=== PATIENT | male | born 1970 | race Two or more races ===

== ENCOUNTER 2024-04-11 08:37 | Inpatient (IN) | payer MEDICAID, SELFPAY ==
[2024-04-11] VITALS (16 sets, daily range): BP systolic 99–114; BP diastolic 52–65; PULSE 86–108; RESP 12–97; TEMP 36.4–38.7; O2SAT 92–100; BMI 23.5
--- NOTE | 2024-04-11 11:00 | PC.NURSE ---
BIBA for abd pain. Patient states he has had abd pain for 3 nights. He points to the right upper quadrant. just states it hurts and pain is not going away.
--- NOTE | 2024-04-11 11:12 | XR_ITS ---
Examination: AP chest single view Technique one AP portable semiupright chest single view Exam date and time: May 11, 2024 1138 hours INDICATIONS: Sepsis protocol FINDINGS: Small focus of parenchymal disease in the right upper lobe Reduced inspiratory effort Normal heart size IMPRESSION: Suspicious for early right upper lobe pneumonia
--- NOTE | 2024-04-11 11:26 | XR_ITS ---
Examination: CT abdomen and pelvis without contrast. Coronal 3-D reconstructions. Sagittal 2-D reconstructions. Date and time of exam:April 11, 2024 1144 hours INDICATIONS: No bowel movement no urination 5 days CTDI: vol (mGy): 6.15 DLP: (mGycm): 391 Technique: Axial images of the abdomen have been obtained, 3 mm slice thickness Intravenous contrast material has not been administered. Low dose protocols were performed. One or more of the following dose reduction techniques were used; automated exposure control, adjustment of the mA and/or KV according to patient size, use of iterative reconstruction technique. Findings: Bibasilar pneumonia, significant right base Pericardial effusion measuring up to 13 mm Liver mildly irregular in contour Distended gallbladder with gallstones, gallbladder wall appears thickened Spleen not enlarged No pancreatic mass Atrophic kidneys with renal arterial calcification, no hydronephrosis Enlarged fluid-filled inflamed appendix medial and below the cecum axial images 165 through 139 Free fluid in the pelvis consistent with localized perforation and possible peritonitis No abscess Bladder intact IMPRESSION: Bibasilar pneumonia Primary hepatocellular disease Recommend hepatobiliary sonography to exclude acute calculus cholecystitis Acute appendicitis with localized rupture and probable peritonitis, no focal pelvic abscess
--- NOTE | 2024-04-11 11:51 | EDNOTE_ITS ---
ED Abdominal Pain RME/HPI General Chief Complaint: Abdominal Pain Stated complaint: ABDOMINAL PAIN Arrival date/time: 04/11/24 08:37 RME / HPI RME / HPI narrative: A 53-year-old male patient with past medical history of end-stage renal disease on dialysis M/W/F secondary to diabetic/hypertensive nephrosclerosis on dialysis Wednesday, diabetes, hypertension was [facility] due to abdominal pain for 5 days. Patient reported that abdominal pain started at the lower abdomen and became generalized and worsened over time. He reported that the pain 10 out of 10 associated with constipation and urinary retention. Patient denied any fever or chills and denied any nausea or vomiting. Last dialysis was yesterday and he reported that his pain did not improve after dialysis. Related Data Home Medications ?Medication ?Instructions ?Recorded ?Confirmed cyclobenzaprine 5 mg tablet 5 mg PO HS 07/25/22 01/07/23 hydroxyzine HCl 25 mg tablet 25 mg PO BID PRN Anxiety 07/25/22 01/07/23 ipratropium 20 mcg-albuterol 100 1 puff inhalation BID 07/25/22 01/07/23 mcg/actuation mist for inhalation (Combivent Respimat) lorazepam 1 mg tablet 1 mg PO HS 07/25/22 01/07/23 naproxen 500 mg tablet 500 mg PO TID 07/25/22 01/07/23 vitamin B comp no.3-folic acid 1 1 tab PO QDAY 07/25/22 01/07/23 mg-vit C 60 mg-biotin 300 mcg tablet ([facility]) carvedilol 6.25 mg tablet 6.25 mg PO BID 12/30/22 01/07/23 clonidine HCl 0.1 mg tablet 0.1 mg PO BID 12/30/22 01/07/23 furosemide 40 mg tablet 40 mg PO QAM 12/30/22 01/07/23 glycopyrrolate 1 mg tablet 1 mg PO BID 12/30/22 01/07/23 insulin glargine 100 unit/mL (3 15 unit subcut QPM 12/30/22 01/07/23 mL) subcutaneous pen (Lantus Solostar U-100 Insulin) losartan 25 mg tablet 25 mg PO QDAY 12/30/22 01/07/23 acetaminophen 325 mg tablet 325 mg PO Q8HR 01/07/23 01/07/23 (Tylenol) bisacodyl 10 mg rectal suppository 10 mg VT Q72H PRN Constipation 01/07/23 01/07/23 (Dulcolax (bisacodyl)) glucagon 1 mg injection kit See Rx Instructions .Route 01/07/23 01/07/23 .COMPLEX PRN Hypoglycemia magnesium hydroxide 400 mg/5 mL 30 ml PO Q72H PRN Constipation 01/07/23 01/07/23 oral suspension (Milk of Magnesia) sennosides 8.6 mg tablet (Senna 1 tab PO QPM 01/07/23 01/07/23 Lax) sodium phosphates 19 gram-7 118 ml VT Q72H PRN Constipation 01/07/23 01/07/23 gram/118 mL enema (Fleet Enema) Previous Rx's ?Medication ?Instructions ?Recorded calcium acetate(phosphat bind) 667 667 mg PO TIDWM #90 caps 08/20/21 mg capsule aspirin 81 mg tablet,delayed 81 mg PO DAILY #30 tabs 05/29/22 release atorvastatin 80 mg tablet 80 mg PO QPM #30 tabs 05/29/22 clopidogrel 75 mg tablet 75 mg PO QDAY #30 tabs 05/29/22 Allergies Allergy/AdvReac Type Severity Reaction Status Date / Time No Known Allergies Allergy Verified 01/07/23 09:25 Review of Systems Review of Systems Systems Reviewed: All systems reviewed, normal except as documented ED Exam Narrative Physical exam: GEN: AOx3, able to speak full sentences HEENT: NC/AC, oral mucosa moist, neck supple CVS: RRR, S1-S2 present, no murmurs appreciated RESP: CTAB GI: Rigid, nondistended flat, generalized tenderness, decreased bowel sounds. MSK: able to move all 4 limbs, no lower extremity edema SKIN: warm and dry PHILOSOPHY PROFESSOR: Mouth deviation to the right, and Sensation grossly intact. Course Quality Measures none Orders Category Date Time Status Bedside Blood Glucose NOW Care 04/11/24 11:12 Completed Associate Dean Q4H START 00 Care 04/11/24 11:12 Completed Continuous Pulse Oximetry NOW Care 04/11/24 11:12 Completed Insert IV NOW Care 04/11/24 11:12 Completed Strict Intake and Output Routine Care 04/11/24 11:12 Ordered Consult to General Surgery Stat Cons 04/11/24 14:09 Ordered Consult to Nephrology Stat Cons 04/11/24 14:[address] abdomen pelvis wo con Stat Exams 04/11/24 11:26 Completed XR chest 1V SEPSIS PROTOCOL Stat Exams 04/11/24 11:12 Completed Blood Culture (Lab) Stat Lab 04/11/24 12:07 Received CBC Stat Lab 04/11/24 12:07 Completed Comprehensive Metabolic Panel Stat Lab 04/11/24 12:07 Completed Lactate (Lactic Acid) Stat Lab 04/11/24 12:07 Completed Partial Thromboplastin Time Stat Lab 04/11/24 12:07 Completed Procalcitonin Stat Lab 04/11/24 12:07 Completed Prothrombin Time with INR Stat Lab 04/11/24 12:07 Completed Acetaminophen Ivpb [Ofirmev Inj] Med 04/11/24 11:25 Discontinued 1,000 mg in 100 ml IV Q6HR Bupivacaine Mpf 0.5% [Sensorcaine-Mpf Inj 0.5%] Med 04/11/24 14:35 Discontinued 30 ml .ROUTE .STK-MED ONE Piper/Tazo 3.375 gm [Zosyn] Med 04/11/24 12:03 Discontinued 3.375 gm in 50 ml IV X1 Sodium Chloride 0.9% 500 ml [Ns] 500 ml Med 04/11/24 11:26 Discontinued IV 999 mls/hr Sodium Chloride 0.9% 500 ml [Ns] 500 ml Med 04/11/24 12:16 Discontinued IV 999 mls/hr Vancomycin Pharmacy to Dose Med 04/11/24 12:00 Discontinued 1 each IV QDAY PRN Vancomycin/Ns 1 gm Ivpb 200 ml Med 04/11/24 12:15 Discontinued IV X1 EKG (RT) Stat RT 04/11/24 11:12 Stop Req Oxygen Delivery NOW RT 04/11/24 11:12 Completed Vital Signs Vital signs: Vital Signs Temperature 101.6 F H 04/11/24 08:42 Pulse Rate 108 H 04/11/24 08:42 Respiratory Rate 20 04/11/24 08:42 Blood Pressure 111/62 04/11/24 08:42 Pulse Oximetry (%) 95 04/11/24 08:42 Oxygen Delivery Method Room Air 04/11/24 08:42 Abdominal Pain MDM MDM Narrative MDM Narrative:: Resident approached me at 1150-hour about this patient who is got obvious peritonitis fever tachycardia and severe abdominal pain> patient has acute bacterial peritonitis till proven otherwise. Would not start antibiotics quickly see residents note for further details.>> CT came back with acute ap pendicitis peritonitis. Patient is admitted as noted below. On evaluation patient was found to have heart rate of 108, temperature of 101.6, on examination he was found to have abdominal rigidity and sluggish bowel sounds. were 11.5, CT scan was positive for acute appendicitis with localized rupture with possible peritonitis. We extracted Dr Starks due to sedation who decided to call the hospitalist team for admission for possible emergency surgery. Patient was started on 1 L of IV fluid boluses because he has a history of CHF and ESRD, patient was given Zosyn and vancomycin initially. We consulted the general surgeon Dr. Starks he recommended to admit the patient, Dr. Fifi Murguia his manager agency was consulted and saw and she recommended to admit the patient and to do dialysis tomorrow when the patient is more stable. Patient data External records reviewed:: [facility] previous records and Longterm records Clinical information provided by:: patient Social determinants that could affect healthcare access:: other (specify) Patient has the following chronic illnesses:: Hypertension, ESRD, diabetes mellitus How is presenting disease/condition affected by chronic disease/condition?: uneffected by Evaluation data The following diagnostics were reviewed and interpreted by me:: lab results, radiology exam(s) and EKG tracing(s) Lab and/or radiology exams considered but not ordered:: None Interpretation Summary: Ruptured appendicitis Medications / Prescriptions Medications or Prescriptions considered but not ordered:: None Medication administrations:: Medication Administration History Acetaminophen (Acetaminophen 325 Mg Tablet) 650 mg PO Q6H PRN PRN Reason: Fever >101.5 or pain 1-3 Stop: 05/11/24 15:23 Aspirin (Aspirin Ec 81 Mg Tabec) 81 mg PO QDAY OVI Stop: 05/12/24 08:59 Atorvastatin Calcium (Atorvastatin Calcium 20 Mg Tablet) 80 mg PO HS OVI Stop: 05/12/24 20:59 Calcium Acetate (Calcium Acetate 667 Mg Tablet) 667 mg PO TIDWM OVI Stop: 05/12/24 07:59 Dextrose (Dextrose 50%-Water Inj 50 Ml Syringe) 25 ml IV Q15MIN PRN PRN Reason: BG 50-70 responsive npo pt Stop: 05/11/24 15:47 Dextrose (Dextrose 50%-Water Inj 50 Ml Syringe) 50 ml IV Q15MIN PRN PRN Reason: BG <50 OR BG <70 & pt unresponsive Stop: 05/11/24 15:47 Docusate Sodium (Docusate Sod 100 Mg Capsule) 100 mg PO QDAY PRN; Protocol PRN Reason: CONSTIPATION Stop: 05/11/24 14:55 Glucagon (Glucagon Inj 1 Mg Vial) 1 mg IM Q15MIN PRN PRN Reason: BG <70, and no IV access Hydromorphone HCl (Hydromorphone Inj 2 Mg/Ml Vial) 1 mg IVP Q4HR PRN PRN Reason: Pain 7-10 Stop: 04/16/24 15:38 Piperacillin/Tazobactam/Dextrose (Zosyn) 50 mls @ 12.5 mls/hr IV Q12HR OVI Stop: 04/18/24 20:59 Acetaminophen (Ofirmev Inj) 1,000 mg in 100 mls @ 250 mls/hr IV Q6H [facility] Stop: 04/12/24 10:16 Insulin Human Lispro (Insulin Lispro (Admelog) 1 Unit/0.01 Ml Unit) 0 unit SC [facility]; Protocol Stop: 05/11/24 16:59 Last Admin: 04/11/24 17:00 Dose: Not Given Documented By: CLAYTON Non-Admin Reason: NPO Morphine Sulfate (Morphine Sulf Inj 10 Mg/Ml Vial) 2 mg IVP Q3H PRN PRN Reason: SEVERE BREAKTHRU PAIN Stop: 04/16/24 14:55 Ondansetron HCl (Ondansetron Inj 2 Mg/Ml Inj 2 Ml) 4 mg IV Q4HR PRN; Protocol PRN Reason: NAUSEA OR VOMITING Stop: 05/11/24 15:23 Pantoprazole Sodium (Pantoprazole Inj 40 Mg Vial) 40 mg IVP QDAY [facility] Stop: 05/11/24 19:59 Discontinued Medications Acetaminophen (Acetaminophen 325 Mg Tablet) 650 mg PO Q6H PRN PRN Reason: Fever >101.5 Stop: 05/11/24 15:23 Hydrocodone Bitart/Acetaminophen (Hydrocodone/Apap 5/325 Tablet) 1 tab PO Q4HR PRN PRN Reason: PAIN SCALE 4-6 (Moderate Stop: 04/16/24 14:55 Hydrocodone Bitart/Acetaminophen (Hydrocodone/Apap 5/325 Tablet) 1 tab PO Q4HR PRN PRN Reason: PAIN SCALE 4-6 (Moderate Stop: 04/16/24 14:55 Bupivacaine HCl (Bupivacaine Mpf 0.5% 30 Ml Vial) Confirm Administered Dose 30 ml .ROUTE .STK-MED ONE Stop: 04/11/24 14:36 Fentanyl Citrate (Fentanyl Cit Inj 50 Mcg/Ml Amp 2ml) Confirm Administered Dose 100 mcg .ROUTE .STK-MED ONE Stop: 04/11/24 14:53 Fentanyl Citrate (Fentanyl Cit Inj 50 Mcg/Ml Amp 2ml) 25 mcg IV Q5M PRN PRN Reason: PAIN SCALE 1-3 (mild Stop: 04/11/24 17:52 Last Admin: 04/11/24 16:59 Dose: 25 mcg Documented By: CLAYTON Gentamicin Sulfate (Gentamicin Inj 40 Mg/Ml Vial 2 Ml) Confirm Administered Dose 160 mg .ROUTE .STK-MED ONE Stop: 04/11/24 15:32 Heparin Sodium (Porcine) (Heparin Sod Inj 5000 Unit/Ml Vial) 5,000 unit SC Q8HR OVI Stop: 04/25/24 21:59 Acetaminophen (Ofirmev Inj) 1,000 mg in 100 mls @ 250 mls/hr IV Q6HR [facility] Stop: 04/12/24 06:23 Last Infusion: 04/11/24 12:48 Dose: Infused Documented By: Admin: 04/11/24 12:20 Dose: 250 mls/hr Documented By: Sodium Chloride (Ns) 500 mls @ 999 mls/hr IV .Q31M ONE Stop: 04/11/24 11:56 Last Infusion: 04/11/24 13:13 Dose: Infused Documented By: Admin: 04/11/24 12:22 Dose: 999 mls/hr Documented By: Vancomycin/Sodium Chloride (Vancomycin/Ns 1 Gm Ivpb) 200 mls @ 120 mls/hr IV X1 ONE Stop: 04/11/24 13:54 Last Admin: 04/11/24 12:59 Dose: 120 mls/hr Documented By: Piperacillin/Tazobactam/Dextrose (Zosyn) 3.375 gm in 50 mls @ 100 mls/hr IV X1 ONE Stop: 04/11/24 12:32 Last Infusion: 04/11/24 12:54 Dose: Infused Documented By: Admin: 04/11/24 12:21 Dose: 100 mls/hr Documented By: Sodium Chloride (Ns) 500 mls @ 999 mls/hr IV .Q31M ONE Stop: 04/11/24 12:46 Last Infusion: 04/11/24 13:53 Dose: Infused Documented By: Admin: 04/11/24 13:18 Dose: 999 mls/hr Documented By: Morphine Sulfate (Morphine Sulf Inj 10 Mg/Ml Vial) 2 mg IVP Q3H PRN PRN Reason: PAIN SCALE 7-10 (Severe Stop: 04/16/24 14:55 Morphine Sulfate (Morphine Sulf Inj 10 Mg/Ml Vial) 2 mg IVP Q4HR PRN PRN Reason: PAIN SCALE 7-10 (Severe Stop: 04/16/24 15:23 Morphine Sulfate (Morphine Sulf Inj 10 Mg/Ml Vial) 3 mg IV Q5M PRN PRN Reason: PAIN SCALE 4-6 (Moderate Stop: 04/11/24 17:52 Last Admin: 04/11/24 17:18 Dose: 3 mg Documented By: CLAYTON Ondansetron HCl (Ondansetron Inj 2 Mg/Ml Inj 2 Ml) 4 mg IV X1 ONE Stop: 04/11/24 15:53 Oxycodone/Acetaminophen (Oxycodone/Apap 5/325 Tablet) 1 tab PO Q6H PRN PRN Reason: PAIN SCALE 4-6 (Moderate Stop: 04/16/24 15:23 Oxycodone/Acetaminophen (Oxycodone/Apap 5/325 Tablet) 1 tab PO Q6H PRN PRN Reason: PAIN SCALE 4-6 (Moderate Stop: 04/16/24 15:23 Pharmacy Consult (Vancomycin Pharmacy To Dose 1 Each Each) 1 each IV QDAY PRN PRN Reason: CONSULT Stop: 05/11/24 11:59 Propofol (Propofol Inj 10 Mg/Ml Vial 20 Ml) Confirm Administered Dose 200 mg IV .STK-MED ONE Stop: 04/11/24 14:53 Sugammadex Sodium (Sugammadex Inj 100 Mg/Ml 2ml Vial) Confirm Administered Dose 200 mg .ROUTE .STK-MED ONE Stop: 04/11/24 15:32 As above Consultations Consultation(s) initiated? (list below): Yes Diagnosis Differential diagnosis abdominal pain: acute appendicitis (Acute appendicitis, ruptured with peritonitis), constipation and diverticulitis Most likely diagnosis given after review of the tests above:: Acute appendicitis, ruptured with peritonitis Admission Indicated Admission indicated?: indicated Admission Request Was there a request for admission?: Yes Admission Attestation Admission request attestation: Discussed case with [] from Hospitalist service regarding admission. Discussed patients ED course, exam findings, labs, and radiology results. The Hospitalist [agrees,declines] to accept the patient for admission. Disposition Plan Disposition Plan: Admit Discharge Plan Plan Patient Disposition: Admit Acute Care w/in Hospital Problem List Clinical Impression: Acute appendicitis, Diverticulitis MD Attestation MD Attestation I, Flo Stanton MD, have reviewed the history, exam, and assessment of the patient. I have evaluated the patient independently and agree with the plan of care documented by [ ]. All diagnostic studies were reviewed and discussed. I confirm the diagnosis as documented by the Resident. I was present during the Medical Decision Making for this patient. The patient's plan of care was create d between myself and the Resident and consistent with our discussion of the patient's case.
[2024-04-11 12:20] LABS: Lactate (Lactic Acid) 1.3 mMol/L (0.4-2.0)
[2024-04-11] MEDS: ACETAMINOPHEN IVPB 1,000 MG/100 ML VIAL 250 MG IV ×2 (12:20→19:31)
[2024-04-11] MEDS: PIPER/TAZO 3.375 GM 3.375 GM/50 ML BAG IV (12:21)
[2024-04-11 12:22] LABS: Basophils % (Auto) 0 % (0-2.5); Eosinophils % (Auto) 0 % (0-10); Hematocrit 31.1 % (41.0-53.0); Hemoglobin 10.1 g/dL (13.5-16.0); Immature Granulocytes % (Auto) 0 % (0-0); Immature Granulocytes Auto 0.05 Thou/mm3 (0.00-0.00); Lymphocytes # (Auto) 0.6 Thou/mm3 (1.0-4.8); Lymphocytes % (Auto) 5 % (10-50); Mean Corpuscular HGB Conc 32.5 g/dl (31.0-37.0); Mean Corpuscular Hemoglobin 31.8 pg (25.0-35.0); Mean Corpuscular Volume 98 fL (80-100); Monocytes # (Auto) 0.9 Thou/mm3 (0.0-0.8); Monocytes % (Auto) 8 % (0-12); Neutrophils # (Auto) 9.9 Thou/mm3 (1.8-7.7); Neutrophils % (Auto) 86 % (37-80); Nucleated Red Blood Cell % 0 /100 WBC (0); Platelet Count 319 Thou/mm3 (140-440); RDW Standard Deviation 49.1 fL (35.1-43.9); Red Blood Count 3.18 Miln/mm3 (4.50-5.90); White Blood Count 11.5 Thou/mm3 (3.8-10.6)
[2024-04-11] MEDS: SODIUM CHLORIDE 0.9% 500 ML 500 ML 999 ML IV ×2 (12:22→13:18)
[2024-04-11 12:35] LABS: INR 1.1 (0.9-1.3); Partial Thromboplastin Time 32.7 Seconds (22.0-36.0); Prothrombin Time 11.9 Seconds (9.0-12.2)
[2024-04-11 12:51] LABS: Alanine Aminotransferase 10 U/L (10-49); Albumin, Serum 4.1 gm/dL (3.5-5.0); Albumin/Globulin Ratio 1.4 (1.2-2.2); Alkaline Phosphatase 150 U/L (46-116); Anion Gap 10 (7-16); Aspartate Amino Transferase 12 U/L (0-34); BUN/Creatinine Ratio 9 Ratio (12-20); Bilirubin,Total 0.8 mg/dL (0.3-1.2); Blood Urea Nitrogen 60 mg/dL (9-23); Calcium 9.3 mg/dL (8.3-10.6); Calcium (Corrected) 9.3 mg/dL (8.5-10.1); Carbon Dioxide 30.3 mMol/L (20.0-31.0); Chloride 94 mMol/L (98-107); Creatinine (Component) 6.6 mg/dL (0.6-1.3); Estimated Creatinine Clearance 12.2 mL/min (>60); Globulin 2.9 gm/dL (2.3-3.5); Glucose 146 mg/dL (74-106); Osmolality,Calculated 288 (275-295); Potassium 4.6 mMol/L (3.4-5.1); Sodium 134 mMol/L (136-145); eGFR 9 See Note
[2024-04-11] MEDS: VANCOMYCIN/NS 1 GM IVPB 200 ML IV (12:59)
--- NOTE | 2024-04-11 14:37 | ESHP_ITS ---
<Statement entered by Brayden Rosas MD - 04/11/24 17:15> Senior Resident Attestation: I supervised/discussed management plan with resident Dr. Salgado, and was involved in the care of this patient. I personally saw and examined the patient and discussed the assessment and plan with the entire medicine team, including my attending. I agree with the assessment and plan as documented. Patient seen and examined in ED, 53 years old male with PMHx noted for ESRD, CVA with right hemiplegia, HTN, admitted for sepsis 2/2 perforated appendicitis, CT A/P also noted for distended GB with Cholelithiasis, patient was taken to OR for Ex-Laparascopy or possible open laparatomy, and possible Lap Cholecystectomy, patient started on Van and Zosyn in ED, will continue Zosyn and dc vancomycin, patient was given 2L NS bolus in ED, will not give more fluid at the moment in light of ESRD. Nephrology consulted, patient's next scheduled HD session for following day. Restarted patient's home Aspirin, Atorvastatin, and Calcium acetate, patient's HgbA1c a year ago noted to be 6.1, will hold patient's insulin as patient has no po intake and hold his antihypertensive meds as he is borderline hypertensive, will continue to monitor patient's condition, and re- evaluate in AM. Patient's care was discussed with attending physician, Dr. Joshua Rosas MD PGY-3 Documentation for date of: 04/11/24 HPI History of Present Illness Chief complaint: Abdominal pain History of present illness: A 53-year-old male patient with past medical history of diabetes mellitus, hypertension, diabetic/hypertensive nephrosclerosis, end-stage renal disease on dialysis M/W/F, and and CVA (acute infarcts left basal ganglia and acute infarct left caudate nucleus on 04/2022) w/right sided residual deficits presented to the ED of [facility] from residential facility for chief complaint of abdominal pain x 3 days. Patient endorses that the pain was diffuse and generalized throughout his abdomen. He rated it as an 8 out of 10 in severity diffuse pain. The pain was not associated with food. Patient endorses that he did not any eat anything out of the ordinary. He also endorses that he has not had any urine for the past 3 days and he has not produced stool over the past 5 days. Patient denies headache, fever, chills, chest pain, palpitation, shortness of breath, dizziness, nausea, vomiting, or diarrhea. Patient was admitted for management of sepsis secondary to ruptured acute appendicitis. ED course: Blood pressure 111/62, heart rate 108, respiratory rate 20, temperature 101.6 F, 95% room air. Sodium: 134, potassium 4.6, chloride 94, bicarb 30.3, BUN 60, creatinine 6.6, GFR 9, glucose 146. Lactic acid 1.3, LDH 150. Procalcitonin 21.80 CBC: WBC 11.5, hemoglobin 10.1, hematocrit 31.1%, platelet count 319. CT ab/pelvis: Bibasilar pneumonia, primary hepatocellular disease. Recommend hepatobiliary sonography to exclude acute calculus cholecystitis. Acute appendicitis with localized rupture and probable peritonitis, no focal pelvic abscess. Chest x-ray: Suspicious for right upper lobe pneumonia. Past medical history: As above Allergies: None Medications: Pending med rec Family history: Mother -diabetes, Father: None Surgical history: None Social history: Beer drinker for a total of 4 years-stopped drinking 2 years ago when he had a stroke. Denies any tobacco or illicit drug use. Review of Systems Review of Systems Systems Reviewed: All systems reviewed, normal except as documented Past Medical History Past Medical History NEUROLOGIC: Positive Cerebrovascular Accident; Negative Migraine CARDIAC: Positive Cardiac Disorders, Hypercholesterolemia, Congestive Heart Failure and Hypertension; Negative Myocardial Infarction RESPIRATORY: Negative Chronic Obstructive Pulmonary Disease (COPD), Asthma or Pneumonia GASTROINTESTINAL: Negative Cirrhosis, Gall Bladder Disease, Hiatal Hernia or Gastroesophageal Reflux Disease GENITOURINARY: Positive Chronic Kidney Disease, Renal Disease and Dialysis; Negative Kidney Stones MUSCULOSKELETAL: Negative Arthritis ENT: 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); Negative Glaucoma or Deafness ENDOCRINE: Positive Endocrine Disorders and Diabetes Mellitus Type 2; Negative Diabetes Mellitus Type 1, Hypoglycemia or Hyperthyroidism HEMATOLOGIC: Negative Blood Disorders, Anemia or Sickle Cell Disease OTHER HISTORY: Negative Falls, Clostridium Difficile or Cancer Family History FAMILY HISTORY: Negative Family Psychiatric Problems, Family Cardiac Disorders, Family Gastrointestinal Problems, Family Musculoskeletal Disorders or Family Cancer Surgical History OTHER SURGICAL HX: RUE AVG Social History SMOKING STATUS: Never smoker Exam Vital Signs Temp Pulse Resp BP Pulse Ox O2 Del Method 100.3 F 105 H 15 107/65 94 L Room Air 04/11/24 12:28 04/11/24 12:28 04/11/24 12:28 04/11/24 12:28 04/11/24 12:28 04/11/24 12:28 Narrative Exam Constitutional: Yakut-speaking, bed bound, middle-age male. well-nourished, in no acute distress, slurred speech. HEENT: NCAT, EOMI, reactive round pupils b/l, moist mucous membranes, on room air Lung: CTAB, no wheezing, no rhonchi, no crackles. Heart: Regular S1S2, no murmurs, gallops, or rubs Abdomen: Soft, non-distended,tender, ++bowel sounds present throughout. Extremities: No cyanosis, clubbing, no edema of b/l legs, residual paralysis of right upper and lower extremities. Left upper and lower extermities strength 5/5. Neurologic: Motor deficits noted, AOx3, appropriate affect Skin: Warm, dry, no lesions or rashes noted Results: Labs 04/15/24 05:10 04/15/24 05:10 Labs: Short CBC 04/11/24 Range/Units 12:07 WBC 11.5 H (3.8-10.6) Thou/mm3 Hgb 10.1 L (13.5-16.0) g/dL Hct 31.1 L (41.0-53.0) % Plt Count 319 (140-440) Thou/mm3 BMP 04/11/24 12:07 Sodium 134 L Potassium 4.6 Chloride 94 L Carbon Dioxide 30.3 BUN 60 H Creatinine 6.6 H* Glucose 146 H Calcium 9.3 Liver Function 04/11/24 Range/Units 12:07 Total Bilirubin 0.8 (0.3-1.2) mg/dL AST 12 (0-34) U/L ALT 10 (10-49) U/L Alkaline Phosphatase 150 H (46-116) U/L Albumin 4.1 (3.5-5.0) gm/dL Quality Measures Quality Measures none Medications Home Medications and Allergies Home Medications ?Medication ?Instructions ?Recorded ?Confirmed ?Type cyclobenzaprine 5 mg tablet 5 mg PO HS 07/25/22 04/12/24 History ipratropium 20 mcg-albuterol 100 1 puff inhalation BID 07/25/22 04/12/24 History mcg/actuation mist for inhalation (Combivent Respimat) lorazepam 1 mg tablet 1 mg PO HS 07/25/22 04/11/24 History carvedilol 6.25 mg tablet 6.25 mg PO BID 12/30/22 04/12/24 History clonidine HCl 0.1 mg tablet 0.1 mg PO BID 12/30/22 04/12/24 History furosemide 40 mg tablet 40 mg PO QAM 12/30/22 04/12/24 History glycopyrrolate 1 mg tablet 1 mg PO BID 12/30/22 04/12/24 History insulin glargine 100 unit/mL (3 15 unit subcut QPM 12/30/22 04/12/24 History mL) subcutaneous pen (Lantus Solostar U-100 Insulin) losartan 25 mg tablet 25 mg PO QDAY 12/30/22 04/12/24 History acetaminophen 325 mg tablet 650 mg PO Q8HR PRN Pain, Mild 01/07/23 04/12/24 History (Tylenol) bisacodyl 10 mg rectal suppository 10 mg [place] Q72H PRN Constipation 01/07/23 04/12/24 History (Dulcolax (bisacodyl)) sennosides 8.6 mg tablet (Senna 1 tab PO QPM 01/07/23 04/12/24 History Lax) sodium phosphates 19 gram-7 118 ml [place] Q72H PRN Constipation 01/07/23 04/12/24 History gram/118 mL enema (Fleet Enema) glucagon 1 mg injection kit 1 mg subcut Q15MIN PRN Hypoglycemia 04/11/24 04/11/24 History lactulose 20 gram/30 mL oral 20 g PO QPM 04/11/24 04/11/24 History solution nutritional supplements 1 ea PO BID 04/11/24 04/11/24 History aspirin 81 mg chewable tablet 81 mg PO QDAY 04/12/24 04/12/24 History atorvastatin 80 mg tablet 80 mg PO HS 04/12/24 04/12/24 History cholecalciferol (vitamin D3) 125 125 mcg PO QDAY 04/12/24 04/12/24 History mcg (5,000 unit) tablet clopidogrel 75 mg tablet 75 mg PO DAILY 04/12/24 04/12/24 History docusate sodium 50 mg capsule 250 mg PO BID 04/12/24 04/12/24 History fluticasone propionate 50 2 spray intranasal QDAY 04/12/24 04/12/24 History mcg/actuation nasal spray,suspension (Flonase Allergy Relief) guaifenesin 100 mg/5 mL oral liquid 200 mg PO [id number] PRN Cough 04/12/24 04/12/24 History insulin lispro 100 unit/mL 4 unit subcut [id number] 04/12/24 04/12/24 History subcutaneous solution (Humalog U-100 Insulin) insulin regular human 100 unit/mL 1 sliding scale dose subcut 04/12/24 04/12/24 History (3 mL) subcutaneous pen USEASDIRECTD magnesium hydroxide 400 mg/5 mL 30 ml PO Q72H PRN Constipation 04/12/24 04/12/24 History oral suspension (Milk of Magnesia) pantoprazole 40 mg tablet,delayed 40 mg PO QAM 04/12/24 04/12/24 History release vitamin B complex-vitamin C-folic 1 tab PO QDAY 04/12/24 04/12/24 History acid 0.8 mg tablet (Clementina-Sofiya) Allergies Allergy/AdvReac Type Severity Reaction Status Date / Time No Known Allergies Allergy Verified 04/11/24 22:46 Visit Medications Pharmacy Consult (Vancomycin Pharmacy To Dose 1 Each Each) 1 each IV QDAY PRN PRN Reason: CONSULT Stop: 05/11/24 11:59 Discontinued Medications Acetaminophen (Ofirmev Inj) 1,000 mg in 100 mls @ 250 mls/hr IV Q6HR OVI Stop: 04/12/24 06:23 Last Infusion: 04/11/24 12:48 Dose: Infused Sodium Chloride (Ns) 500 mls @ 999 mls/hr IV .Q31M ONE Stop: 04/11/24 11:56 Last Infusion: 04/11/24 13:13 Dose: Infused Vancomycin/Sodium Chloride (Vancomycin/Ns 1 Gm Ivpb) 200 mls @ 120 mls/hr IV X1 ONE Stop: 04/11/24 13:54 Last Admin: 04/11/24 12:59 Dose: 120 mls/hr Piperacillin/Tazobactam/Dextrose (Zosyn) 3.375 gm in 50 mls @ 100 mls/hr IV X1 ONE Stop: 04/11/24 12:32 Last Infusion: 04/11/24 12:54 Dose: Infused Sodium Chloride (Ns) 500 mls @ 999 mls/hr IV .Q31M ONE Stop: 04/11/24 12:46 Last Infusion: 04/11/24 13:53 Dose: Infused Assessment & Plan Plan A 53-year-old male patient with past medical history of diabetes mellitus, hypertension, diabetic/hypertensive nephrosclerosis, end-stage renal disease on dialysis M/W/F, and CVA (acute infarcts left basal ganglia and acute infarct left caudate nucleus on 04/2022) w/right sided residual deficits presented to the ED of [facility] from residential facility for chief complaint of abdominal pain x 3 days. Patient was tachypneic, tachycardic, with elevated WBC on ED presentation. Found to have ruptured acute appendicitis on CT abdomen and pelvis. Patient was admitted for management of sepsis secondary to ruptured acute appendicitis. #Sepsis Secondary to #Ruptured acute appendicitis Ddx: Cholecystitis vs peritonitis Patient presenting the ED with generalized, severe abdominal pain x 3 nights. Patient met 3 out of 4 SIRS criteria for sepsis: tachycardia, tachypnea and elevated WBCs. He is found to have ruptured appendicitis (source) on CT a/p. Possible underlying acute calculus cholecystitis with positive Merino sign on physical examination noted. Likely underlying peritonitis as he has not been able to have a bowel movement in the past 5 days, tenderness/abdominal pain that worsens with movement, and decreased appetite. Blood pressure 111/62, heart rate 108, respiratory rate 20, temperature 101.6 F. Lactic acid 1.3, LDH 150. Procalcitonin 21.80 CBC: WBC 11.5, hemoglobin 10.1, hematocrit 31.1%, platelet count 319. CT ab/pelvis: Bibasilar pneumonia, primary hepatocellular disease. Recommend hepatobiliary sonography to exclude acute calculus cholecystitis. Acute appendicitis with localized rupture and probable peritonitis, no focal pelvic abscess. He was given 2 L IV fluid per sepsis protocol in the ED, Zozyn and vancomycin. Plan: -Consulted Dr. Starks; surgical invention on 04/11/24 -NPO -IV Zosyn 3.375 (04/11- -IV Zofran every 4 hours as needed for Nausea/vomitting -IV Dilaudid every 4 hours as needed -[place] 5/325 orally every 6 hours as needed #Healthcare acquired pneumonia Questionable healthcare acquired pneumonia as patient denies fever, chills, shortness of breath, cough or mucus production. No immediate sick contacts or recent travel. Imaging reveals pneumonia in the right upper lobe. CT ab/pelvis: Bibasilar pneumonia. Chest x-ray: Suspicious for right upper lobe pneumonia. -Antibiotics for appendicitis provides coverage for pneumonia #End-stage renal disease on dialysis M/W/F Patient developing ESRD secondary to diabetic nephrosclerosis. Patient's last dialysis session was 04/10/2024. BUN 60, creatinine 6.6, GFR 9. -Consulted nephrology; appreciate recommendations -renal panel in am -Avoid nephrotoxic agents -Renally dose medications #Diabetes mellitus Patient has a history of diabetes mellitus. -Sliding scale insulin -Bedside glucose checks -Hypoglycemic protocol #Hypertension #Hypertensive nephrosclerosis Patient has a history of hypertension. Patient's blood pressure remains soft in setting of sepsis. -Hold antihypertensives at this moment -Pending med rec; will resume home meds upon improvement in BP. #CVA (2021) Acute infarcts of left basal ganglia and acute infarct left caudate nucleus on 04/2022. Patient has residual paralysis of right upper and lower extremities. Slurred speech noted. -Will restart home aspirin, clopidogrel and atorvastatin Discussed case with my attending Dr. Lewis and senior Brayden Rosas, PGY-3. Thank you, Nisreen Salgado, PGY-2 Attending Provider Attestation/Addendum Face to face evaluation was performed by me. I have personally seen and examined the patient. I discussed the assessment and plan with the entire medicine team. I reviewed available medical records, imaging studies, laboratory results. I agree with the above subjective data, objective findings, assessment and plan except as corrected by me or noted below Ruptured appendix ESRD on HD - gen surgery consulted, looks like no plans for or empiric IV Abxs monitor clinical status closely
--- NOTE | 2024-04-11 14:43 | ESCONSULT_ITS ---
HPI Consult details Consult date: 04/11/24 Reason for consult: abdominal pain History of present illness: 53 yo male with history of DM, HTN, CVA, ESRD on hemodialysis presented to emergency department with worsening abdominal pain. He started developing abdominal pain 5 days ago that has been getting progressively worse over the past 2 days. He has had nausea and vomiting, denies fever or chills. He denies having similar symptoms in the past. Review of Systems Constitutional Constitutional: Denies chills and Denies fever(s) Cardiovascular Cardiovascular: Denies chest pain Respiratory Respiratory: Denies cough Gastrointestinal Gastrointestinal: Reports abdominal pain, Reports nausea and Reports vomiting Genitourinary Genitourinary: Denies difficulty urinating Hematologic/Lymphatic Hematologic/Lymphatic: Denies easy bleeding and Reports easy bruising Past Medical History Surgical History OTHER SURGICAL HX: RUE AVG Meds Home Medications and Allergies Home Medications ?Medication ?Instructions ?Recorded ?Confirmed ?Type cyclobenzaprine 5 mg tablet 5 mg PO HS 07/25/22 01/07/23 History hydroxyzine HCl 25 mg tablet 25 mg PO BID PRN Anxiety 07/25/22 01/07/23 History ipratropium 20 mcg-albuterol 100 1 puff inhalation BID 07/25/22 01/07/23 History mcg/actuation mist for inhalation (Combivent Respimat) lorazepam 1 mg tablet 1 mg PO HS 07/25/22 01/07/23 History naproxen 500 mg tablet 500 mg PO TID 07/25/22 01/07/23 History vitamin B comp no.3-folic acid 1 1 tab PO QDAY 07/25/22 01/07/23 History mg-vit C 60 mg-biotin 300 mcg tablet (Clementina-Sofiya Rx) carvedilol 6.25 mg tablet 6.25 mg PO BID 12/30/22 01/07/23 History clonidine HCl 0.1 mg tablet 0.1 mg PO BID 12/30/22 01/07/23 History furosemide 40 mg tablet 40 mg PO QAM 12/30/22 01/07/23 History glycopyrrolate 1 mg tablet 1 mg PO BID 12/30/22 01/07/23 History insulin glargine 100 unit/mL (3 15 unit subcut QPM 12/30/22 01/07/23 History mL) subcutaneous pen (Lantus Solostar U-100 Insulin) losartan 25 mg tablet 25 mg PO QDAY 12/30/22 01/07/23 History acetaminophen 325 mg tablet 325 mg PO Q8HR 01/07/23 01/07/23 History (Tylenol) bisacodyl 10 mg rectal suppository 10 mg [place] Q72H PRN Constipation 01/07/23 01/07/23 History (Dulcolax (bisacodyl)) glucagon 1 mg injection kit See Rx Instructions .Route 01/07/23 01/07/23 History .COMPLEX PRN Hypoglycemia magnesium hydroxide 400 mg/5 mL 30 ml PO Q72H PRN Constipation 01/07/23 01/07/23 History oral suspension (Milk of Magnesia) sennosides 8.6 mg tablet (Senna 1 tab PO QPM 01/07/23 01/07/23 History Lax) sodium phosphates 19 gram-7 118 ml [place] Q72H PRN Constipation 01/07/23 01/07/23 History gram/118 mL enema (Fleet Enema) Allergies Allergy/AdvReac Type Severity Reaction Status Date / Time No Known Allergies Allergy Verified 01/07/23 09:25 Exam Vital Signs Temp Pulse Resp BP Pulse Ox O2 Del Method 100.3 F 105 H 15 107/65 94 L Room Air 04/11/24 12:28 04/11/24 12:28 04/11/24 12:28 04/11/24 12:28 04/11/24 12:28 04/11/24 12:28 Constitutional Constitutional: no acute distress Routine Abdominal Exam Abdominal: Present soft, normoactive bowel sounds and tenderness (Tenderness to palpation throughout the abdomen with guarding. Pain is more pronounced over RLQ with guarding); Absent distended Results Results: Laboratory Laboratory results: results reviewed Results: Imaging CT scan - abdomen: report reviewed and image reviewed CT scan - pelvis: report reviewed and image reviewed Assessment & Plan Problem List (1) Acute appendicitis with perforation and generalized peritonitis, without abscess or gangrene: Status: Acute Plan Will take pt to operating room for laparoscopic possible open appendectomy. Risks include but not limited to infection, bleeding, injury to bowel, surround neurovascular structures, abdominal sepsis and or abdominal abscess, need for further procedure and or operation discussed with the patient via wide piece goods inspector. Benefits alternatives explained to him, all his questions answered, he agreed and consented to proceed with the operation.
--- NOTE | 2024-04-11 14:50 | PC.NURSE ---
Report given to OR staff. Pt will be transported to OR.
--- NOTE | 2024-04-11 16:22 | PD.SUROPNT ---
Date of Procedure 04/11/24 Pre Op Diagnosis Perforated appendicitis Post Op Diagnosis Perforated appendicitis with generalized peritonitis Procedure Laparoscopic appendectomy with abdominal washout Findings Perforated and inflamed appendix with purulent peritonitis throughout the abdomen Procedure Description Patient was brought into the operating room in supine position. After administration of general endotracheal anesthesia, abdomen was prepped and draped in standard surgical manner. A Veress needle was inserted through the umbilicus and pneumoperitoneum was obtained up to 15 mmHg. The Veress needle was removed and a 5 mm umbilical incision was made. A 5 mm trocar was placed and laparoscopic camera was inserted. Under direct visualization a laparoscopic camera a 5 mm trocar placed in suprapubic region and a 10 mm trocar placed in left lower quadrant. The abdomen was inspected, patient was noted to have purulent peritonitis throughout the abdomen. The abdomen and pelvis washed and irrigated with copious amount of warm saline mixed with gentamicin. The cecum was identified and followed until the appendix was identified. The appendix was noted to be inflamed with a perforation at the proximal aspect. A window was created between the appendix and mesoappendix and the appendix was divided near the appendix and cecal junction with blue Endo FREDY stapling device. The mesoappendix was divided with pompa Endo FREDY stapling device. The appendix was placed inside an Endo Catch and removed from the abdomen utilizing left lower quadrant trocar site. Abdomen and pelvis copiously and thoroughly washed and irrigated, all the fluids were suctioned and the suctioned fluid returned clear. Hemostasis was adequate and satisfactory, staple lines were intact without bleeding or any leakage. Left lower quadrant trocar sites fascial defect was closed with 0 Vicryl. Instruments and trocars removed, pneumoperitoneum was evacuated and the incisions closed with 4-0 Monocryl subcuticular fashion. Instruments, needles and sponge counts were reported to be correct ??2. Patient tolerated the procedure well, was extubated, breathing spontaneously and without difficulty and was transferred to postanesthesia care in stable condition. Anesthesia GETA and local Pathology / specimen Other (Appendix) Estimated Blood Loss 25 Condition Stable Disposition PACU Surgeon Karlo Starks MD Surgical Staff Operation Date: 04/11/24 14:45 Case Staff Anesthesiologist: Cameron Lynch RN First Assistant: Africa Smith
--- NOTE | 2024-04-11 16:31 | SUR.PHASEI ---
pt received from OR in recovery bay 5. pt asleep but responds to voice, breathing unlabored on oxymask 8l. v/s stable. pt dressing dermabond x3 ports cdi. report received from Dr. Winters and Lucila HOLLIDAY.
[2024-04-11] MEDS: fentaNYL CIT INJ 50 mCg/ML AMP 2ML 25 MCG IV (16:59)
[2024-04-11 17:12] LABS: Glucose Estimated Average 117 mg/dL (80-131); Hemoglobin A1C 5.7 % Hgb (4.8-6.0)
[2024-04-11] MEDS: MORPHINE SULF INJ 10 MG/ML VIAL 3 MG IV (17:18)
[2024-04-11 17:53] LABS: COVID-19 Antigen (In-House) Negative (Negative)
--- NOTE | 2024-04-11 18:17 | SUR.PHASEI ---
pt asleep but responds to voice, breathing unlabored on room air. v/s stable. pt dressing to abd dermabond x3 cdi. report called to Sandra HOLLIDAY. pt will be transferred to room at this time.
--- NOTE | 2024-04-11 18:27 | PC.NURSE ---
pt arrived to mi floor
[2024-04-11] MEDS: PANTOPRAZOLE INJ 40 MG VIAL IVP (19:32)
[2024-04-11] MEDS: PIPER/TAZO 3.375 GM 50 ML IV (21:44)
[2024-04-11] MEDS: HYDROmorphone INJ 2 MG/ML VIAL 1 MG IVP (22:22)
[2024-04-12] VITALS (25 sets, daily range): BP systolic 93–139; BP diastolic 50–72; PULSE 73–98; RESP 16–96; TEMP 36.1–36.8; O2SAT 91–99
[2024-04-12] MEDS: ACETAMINOPHEN IVPB 1,000 MG/100 ML VIAL 250 MG IV ×3 (02:20→12:46)
--- NOTE | 2024-04-12 03:30 | PC.NURSE ---
[employer] downtime occurred on <04/12/24> from <0200> to <0300>.
[2024-04-12 05:49] LABS: Basophils % (Auto) 0 % (0-2.5); Eosinophils % (Auto) 0 % (0-10); Hematocrit 26.7 % (41.0-53.0); Immature Granulocytes % (Auto) 1 % (0-0); Immature Granulocytes Auto 0.07 Thou/mm3 (0.00-0.00); Lymphocytes # (Auto) 0.8 Thou/mm3 (1.0-4.8); Lymphocytes % (Auto) 6 % (10-50); Mean Corpuscular HGB Conc 31.5 g/dl (31.0-37.0); Mean Corpuscular Hemoglobin 31.6 pg (25.0-35.0); Mean Corpuscular Volume 100 fL (80-100); Monocytes # (Auto) 1.2 Thou/mm3 (0.0-0.8); Monocytes % (Auto) 8 % (0-12); Neutrophils # (Auto) 12.1 Thou/mm3 (1.8-7.7); Neutrophils % (Auto) 86 % (37-80); Nucleated Red Blood Cell % 0 /100 WBC (0); Platelet Count 302 Thou/mm3 (140-440); RDW Standard Deviation 51.4 fL (35.1-43.9); Red Blood Count 2.66 Miln/mm3 (4.50-5.90); White Blood Count 14.2 Thou/mm3 (3.8-10.6)
[2024-04-12 05:51] LABS: Hemoglobin 8.4 g/dL (13.5-16.0)
[2024-04-12 06:10] LABS: Glucose Estimated Average 114 mg/dL (80-131); Hemoglobin A1C 5.6 % Hgb (4.8-6.0)
[2024-04-12 06:19] LABS: Albumin, Serum 3.5 gm/dL (3.5-5.0); Anion Gap 8 (7-16); BUN/Creatinine Ratio 10 Ratio (12-20); Blood Urea Nitrogen 70 mg/dL (9-23); Calcium 8.6 mg/dL (8.3-10.6); Carbon Dioxide 27.5 mMol/L (20.0-31.0); Chloride 97 mMol/L (98-107); Creatinine (Component) 7.3 mg/dL (0.6-1.3); Estimated Creatinine Clearance 11.1 mL/min (>60); Glucose 224 mg/dL (74-106); Magnesium 1.9 mg/dL (1.6-2.6); Osmolality,Calculated 292 (275-295); Phosphorous 7.1 mg/dL (2.4-5.1); Potassium 5.6 mMol/L (3.4-5.1); Sodium 132 mMol/L (136-145); eGFR 8 See Note
[2024-04-12] MEDS: INSULIN LISPRO (AdmeLOG) 1 UNIT/0.01 ML UNIT SC ×3 (07:48→20:32)
[2024-04-12] MEDS: PIPER/TAZO 3.375 GM 50 ML IV ×2 (07:49→20:31)
[2024-04-12] MEDS: ASPIRIN EC 81 MG TABEC PO (07:49)
[2024-04-12] MEDS: CALCIUM ACETATE 667 MG TABLET PO ×3 (07:49→16:56)
[2024-04-12] MEDS: PANTOPRAZOLE INJ 40 MG VIAL IVP (07:49)
--- NOTE | 2024-04-12 09:38 | PC.SS ---
Follow up note: Pt is on IV antibiotic. Pt is from [facility] and will return at de.
--- NOTE | 2024-04-12 09:45 | XR_ITS ---
Examination: Abdomen sonogram, Limited Date and time of exam: April 12, 2024 1202 hours INDICATIONS: Abdominal pain epigastric pain beginning 2 days ago Technique: Real-time pompa scale transabdominal sonographic images of the upper abdomen obtained. Findings: Gallbladder sludge No gallstones Gallbladder wall is thickened, I measure up to 4.5 mm Common bile duct 4 mm Pancreas obscured by bowel gas Normal hepatopedal portal venous flow Patent IVC IMPRESSION: Recommend HIDA scan or MRCP follow-up to exclude acute acalculous cholecystitis
[2024-04-12] MEDS: CHLORPROMAZINE 25 MG PO ×3 (10:05→21:16)
[2024-04-12] MEDS: HYDROmorphone INJ 2 MG/ML VIAL 1 MG IVP ×3 (10:06→23:54)
--- NOTE | 2024-04-12 11:15 | PC.NURSE ---
Report given to Shira Kennedy, Patient to be transported to tele room [id number]
[2024-04-12 11:41] LABS: Hepatitis A Antibody IgM Non Reactive (Non React); Hepatitis B Core Antibody IgM Non Reactive (Non React); Hepatitis B Surface Ab Reactive (Immune) (Immune); Hepatitis B Surface Antigen Non Reactive (Non React); Hepatitis C Antibody Non Reactive (Non React)
--- NOTE | 2024-04-12 12:48 | PD.SURPROG ---
Documentation for date of: 04/12/24 Subjective Subjective Narrative: Patient is seen and examined in telemetry unit. He is resting comfortably. He is still complaining of abdominal pain Exam Vital Signs Temp Pulse Resp BP Pulse Ox O2 Del Method O2 Flow Rate 97.2 F 80 17 126/64 91 L Room Air 4 04/12/24 08:00 04/12/24 09:59 04/12/24 08:00 04/12/24 09:59 04/12/24 08:00 04/12/24 08:00 04/11/24 16:45 Constitutional Constitutional: no acute distress Routine Abdominal Exam Abdominal: Present soft Comments: Abdomen is soft and nondistended. Incisions are clean, dry and intact. He has tenderness to palpation with guarding, no rebound tenderness or peritonitis at this time Assessment & Plan Assessment Additional comments: Postop day #1 status post laparoscopic appendectomy Plan Continue IV antibiotics for perforated appendicitis with generalized peritonitis. Will keep patient on liquid diet today. Procedures Procedures Laparoscopic appendectomy with abdominal washout
--- NOTE | 2024-04-12 13:22 | PD.RESCONSUL ---
HPI Data of Consult Consult date: 04/12/24 Requesting Physician: Roque Rondon DO Admitting Provider: Davian Lewis MD Attending Provider: Rosario Nunez MD Primary Care Provider: ALEXANDER Cohen Consult Narrative Reason for consult: ESRD History of present illness: 53 y/o M with PMHx significant for diabetes mellitus, hypertension, diabetic/hypertensive nephrosclerosis, ESRD on dialysis M/W/F, and and CVA w/right sided residual deficits presented to the ED from senior [facility] for chief complaint of abdominal pain x 3 days. Patient endorses that the pain was diffuse and generalized throughout his abdomen. He rated it as an 8 out of 10 in severity diffuse pain. The pain was not associated with food. Patient endorses that he did not any eat anything out of the ordinary. He also endorses that he has not had any urine for the past 3 days and he has not produced stool over the past 5 days. Patient denies headache, fever, chills, chest pain, palpitation, shortness of breath, dizziness, nausea, vomiting, or diarrhea. CT A/P showed acute appendicitis with localized rupture. Patient was admitted for management of sepsis secondary to ruptured acute appendicitis. In ED labs significant for bicarb 30.3, BUN 60, creatinine 6.6, eGFR 9, procalcitonin 21.8. Patient given 1 L IV bolus, vancomycin and Zosyn. Patient underwent laparoscopic appendectomy which revealed diffuse peritonitis, patient underwent abdominal washout. Procedures well-tolerated. Patient had some episodes of hypotension, was transferred to telemetry for further monitoring. Nephrology consulted for ESRD requiring dialysis M/W/ schedule. Patient seen and examined at bedside. Patient appears mildly uncomfortable, mild abdominal tenderness. Patient complains of persistent hiccups. Labs today showed potassium 5.6, BUN 70, creatinine 7.3, eGFR 8. Plan for dialysis today as per patient's regular schedule. cc:: cc: Roque Rondon DO Review of Systems Review of Systems Systems Reviewed: All systems reviewed, normal except as documented Exam Vital Signs Temp Pulse Resp BP Pulse Ox O2 Del Method O2 Flow Rate 98.2 F 80 18 116/69 94 L Room Air 4 04/12/24 12:47 04/12/24 13:15 04/12/24 12:47 04/12/24 13:15 04/12/24 12:47 04/12/24 12:00 04/11/24 16:45 Narrative Exam PE: Gen: Well-developed and well-nourished. HEENT: NCAT, PERRLA, EOMI, MMM, anicteric conjunctivae. CVS: normal S1 and S2. RRR. No M/R/G. Resp: CTA B/L. No rhonchi, rales, crackles or wheezing. Abd: soft, non-distended. Mild diffuse tenderness. Laparoscopic procedure incisions, clean, nonerythematous. MSK: Good ROM in LUE & LLE. No edema or rash. Neuro: CN II-XII grossly intact. Strength 5/5 in LUE & LLE. Alert and oriented x3. Right-sided paralysis secondary to previous stroke. Psych: appropriate mood and affect. Results Labs 04/13/24 05:23 04/13/24 05:23 Labs: Short CBC 04/12/24 Range/Units 05:04 WBC 14.2 H (3.8-10.6) Thou/mm3 Hgb 8.4 L (13.5-16.0) g/dL Hct 26.7 L (41.0-53.0) % Plt Count 302 (140-440) Thou/mm3 BMP 04/12/24 05:04 Sodium 132 L Potassium 5.6 H D Chloride 97 L Carbon Dioxide 27.5 BUN 70 H Creatinine 7.3 H* D Glucose 224 H D Calcium 8.6 Liver Function 04/12/24 Range/Units 05:04 Albumin 3.5 D (3.5-5.0) gm/dL Quality Measures Quality Measures VTE prophylaxis Medications Home Medications and Allergies Home Medications ?Medication ?Instructions ?Recorded ?Confirmed ?Type cyclobenzaprine 5 mg tablet 5 mg PO HS 07/25/22 04/12/24 History ipratropium 20 mcg-albuterol 100 1 puff inhalation BID 07/25/22 04/12/24 History mcg/actuation mist for inhalation (Combivent Respimat) lorazepam 1 mg tablet 1 mg PO HS 07/25/22 04/11/24 History carvedilol 6.25 mg tablet 6.25 mg PO BID 12/30/22 04/12/24 History clonidine HCl 0.1 mg tablet 0.1 mg PO BID 12/30/22 04/12/24 History furosemide 40 mg tablet 40 mg PO QAM 12/30/22 04/12/24 History glycopyrrolate 1 mg tablet 1 mg PO BID 12/30/22 04/12/24 History insulin glargine 100 unit/mL (3 15 unit subcut QPM 12/30/22 04/12/24 History mL) subcutaneous pen (Lantus Solostar U-100 Insulin) losartan 25 mg tablet 25 mg PO QDAY 12/30/22 04/12/24 History acetaminophen 325 mg tablet 650 mg PO Q8HR PRN Pain, Mild 01/07/23 04/12/24 History (Tylenol) bisacodyl 10 mg rectal suppository 10 mg TN Q72H PRN Constipation 01/07/23 04/12/24 History (Dulcolax (bisacodyl)) sennosides 8.6 mg tablet (Senna 1 tab PO QPM 01/07/23 04/12/24 History Lax) sodium phosphates 19 gram-7 118 ml TN Q72H PRN Constipation 01/07/23 04/12/24 History gram/118 mL enema (Fleet Enema) glucagon 1 mg injection kit 1 mg subcut Q15MIN PRN Hypoglycemia 04/11/24 04/11/24 History lactulose 20 gram/30 mL oral 20 g PO QPM 04/11/24 04/11/24 History solution nutritional supplements 1 ea PO BID 04/11/24 04/11/24 History aspirin 81 mg chewable tablet 81 mg PO QDAY 04/12/24 04/12/24 History atorvastatin 80 mg tablet 80 mg PO HS 04/12/24 04/12/24 History cholecalciferol (vitamin D3) 125 125 mcg PO QDAY 04/12/24 04/12/24 History mcg (5,000 unit) tablet clopidogrel 75 mg tablet 75 mg PO DAILY 04/12/24 04/12/24 History docusate sodium 50 mg capsule 250 mg PO BID 04/12/24 04/12/24 History fluticasone propionate 50 2 spray intranasal QDAY 04/12/24 04/12/24 History mcg/actuation nasal spray,suspension (Flonase Allergy Relief) guaifenesin 100 mg/5 mL oral liquid 200 mg PO [id number] PRN Cough 04/12/24 04/12/24 History insulin lispro 100 unit/mL 4 unit subcut TIDWMEAL 04/12/24 04/12/24 History subcutaneous solution (Humalog U-100 Insulin) insulin regular human 100 unit/mL 1 sliding scale dose subcut 04/12/24 04/12/24 History (3 mL) subcutaneous pen USEASDIRECTD magnesium hydroxide 400 mg/5 mL 30 ml PO Q72H PRN Constipation 04/12/24 04/12/24 History oral suspension (Milk of Magnesia) pantoprazole 40 mg tablet,delayed 40 mg PO QAM 04/12/24 04/12/24 History release vitamin B complex-vitamin C-folic 1 tab PO QDAY 04/12/24 04/12/24 History acid 0.8 mg tablet (Clementina-Sofiya) Allergies Allergy/AdvReac Type Severity Reaction Status Date / Time No Known Allergies Allergy Verified 04/11/24 22:46 Visit Medications Acetaminophen (Acetaminophen 325 Mg Tablet) 650 mg PO Q6H PRN PRN Reason: Fever >101.5 or pain 1-3 Stop: 05/11/24 15:23 Aspirin (Aspirin Ec 81 Mg Tabec) 81 mg PO QDAY [facility] Stop: 05/12/24 08:59 Last Admin: 04/12/24 07:49 Dose: 81 mg Atorvastatin Calcium (Atorvastatin Calcium 20 Mg Tablet) 80 mg PO HS [facility] Stop: 05/12/24 20:59 Calcium Acetate (Calcium Acetate 667 Mg Tablet) 667 mg PO TIDWM [facility] Stop: 05/12/24 07:59 Last Admin: 04/12/24 12:46 Dose: 667 mg Chlorpromazine HCl (Chlorpromazine 25 Mg Tablet) 25 mg PO TID [facility]VI Stop: 05/12/24 08:59 Last Admin: 04/12/24 10:05 Dose: 25 mg Dextrose (Dextrose 50%-Water Inj 50 Ml Syringe) 25 ml IV Q15MIN PRN PRN Reason: BG 50-70 responsive npo pt Stop: 05/11/24 15:47 Dextrose (Dextrose 50%-Water Inj 50 Ml Syringe) 50 ml IV Q15MIN PRN PRN Reason: BG <50 OR BG <70 & pt unresponsive Stop: 05/11/24 15:47 Docusate Sodium (Docusate Sod 100 Mg Capsule) 100 mg PO QDAY PRN; Protocol PRN Reason: CONSTIPATION Stop: 05/11/24 14:55 Glucagon (Glucagon Inj 1 Mg Vial) 1 mg IM Q15MIN PRN PRN Reason: BG <70, and no IV access Heparin Sodium (Porcine) (Heparin Sod Inj 5000 Unit/Ml Vial) 5,000 unit SC Q8HR [facility] Stop: 04/26/24 13:59 Hydromorphone HCl (Hydromorphone Inj 2 Mg/Ml Vial) 1 mg IVP Q4HR PRN PRN Reason: Pain 7-10 Stop: 04/16/24 15:38 Last Admin: 04/12/24 10:06 Dose: 1 mg Piperacillin/Tazobactam/Dextrose (Zosyn) 50 mls @ 12.5 mls/hr IV Q12HR [facility] Stop: 04/18/24 20:59 Last Admin: 04/12/24 07:49 Dose: 12.5 mls/hr Albumin Human (Albuminar-25 Ivpb) 25 gm in 100 mls @ 100 mls/min IV PRN PRN PRN Reason: DIALYSIS Insulin Human Lispro (Insulin Lispro (Admelog) 1 Unit/0.01 Ml Unit) 0 unit SC [facility]; Protocol Stop: 05/11/24 16:59 Last Admin: 04/12/24 11:53 Dose: 1 unit Ondansetron HCl (Ondansetron Inj 2 Mg/Ml Inj 2 Ml) 4 mg IV Q4HR PRN; Protocol PRN Reason: NAUSEA OR VOMITING Stop: 05/11/24 15:23 Pantoprazole Sodium (Pantoprazole Inj 40 Mg Vial) 40 mg IVP QDAY [facility] Stop: 05/11/24 19:59 Last Admin: 04/12/24 07:49 Dose: 40 mg Discontinued Medications Acetaminophen (Acetaminophen 325 Mg Tablet) 650 mg PO Q6H PRN PRN Reason: Fever >101.5 Stop: 05/11/24 15:23 Hydrocodone Bitart/Acetaminophen (Hydrocodone/Apap 5/325 Tablet) 1 tab PO Q4HR PRN PRN Reason: PAIN SCALE 4-6 (Moderate Stop: 04/16/24 14:55 Hydrocodone Bitart/Acetaminophen (Hydrocodone/Apap 5/325 Tablet) 1 tab PO Q4HR PRN PRN Reason: PAIN SCALE 4-6 (Moderate Stop: 04/16/24 14:55 Epoetin Louis (Epoetin Louis-Epbx Inj 10,000 Unit/Ml Vial (Esrd)) 10,000 unit SC X1 ONE Stop: 04/12/24 13:01 Fentanyl Citrate (Fentanyl Cit Inj 50 Mcg/Ml Amp 2ml) 25 mcg IV Q5M PRN PRN Reason: PAIN SCALE 1-3 (mild Stop: 04/11/24 17:52 Last Admin: 04/11/24 16:59 Dose: 25 mcg Heparin Sodium (Porcine) (Heparin Sod Inj 5000 Unit/Ml Vial) 5,000 unit SC Q8HR [facility] Stop: 04/25/24 21:59 Acetaminophen (Ofirmev Inj) 1,000 mg in 100 mls @ 250 mls/hr IV Q6HR [facility] Stop: 04/12/24 06:23 Last Infusion: 04/11/24 12:48 Dose: Infused Sodium Chloride (Ns) 500 mls @ 999 mls/hr IV .Q31M ONE Stop: 04/11/24 11:56 Last Infusion: 04/11/24 13:13 Dose: Infused Vancomycin/Sodium Chloride (Vancomycin/Ns 1 Gm Ivpb) 200 mls @ 120 mls/hr IV X1 ONE Stop: 04/11/24 13:54 Last Admin: 04/11/24 12:59 Dose: 120 mls/hr Piperacillin/Tazobactam/Dextrose (Zosyn) 3.375 gm in 50 mls @ 100 mls/hr IV X1 ONE Stop: 04/11/24 12:32 Last Infusion: 04/11/24 12:54 Dose: Infused Sodium Chloride (Ns) 500 mls @ 999 mls/hr IV .Q31M ONE Stop: 04/11/24 12:46 Last Infusion: 04/11/24 13:53 Dose: Infused Acetaminophen (Ofirmev Inj) 1,000 mg in 100 mls @ 250 mls/hr IV Q6H OVI Stop: 04/12/24 10:16 Last Admin: 04/11/24 22:33 Dose: Not Given Acetaminophen (Ofirmev Inj) 1,000 mg in 100 mls @ 250 mls/hr IV Q6HR OVI Stop: 04/12/24 12:23 Last Admin: 04/12/24 12:46 Dose: 250 mls/hr Insulin Glargine (Insulin Glargine (Lantus) 5 Unit/0.05 Ml (Per 5 Units)) 10 unit SC QDAY OVI Stop: 05/12/24 11:59 Morphine Sulfate (Morphine Sulf Inj 10 Mg/Ml Vial) 2 mg IVP Q3H PRN PRN Reason: PAIN SCALE 7-10 (Severe Stop: 04/16/24 14:55 Morphine Sulfate (Morphine Sulf Inj 10 Mg/Ml Vial) 2 mg IVP Q4HR PRN PRN Reason: PAIN SCALE 7-10 (Severe Stop: 04/16/24 15:23 Morphine Sulfate (Morphine Sulf Inj 10 Mg/Ml Vial) 3 mg IV Q5M PRN PRN Reason: PAIN SCALE 4-6 (Moderate Stop: 04/11/24 17:52 Last Admin: 04/11/24 17:18 Dose: 3 mg Morphine Sulfate (Morphine Sulf Inj 10 Mg/Ml Vial) 2 mg IVP Q3H PRN PRN Reason: SEVERE BREAKTHRU PAIN Stop: 04/16/24 14:55 Ondansetron HCl (Ondansetron Inj 2 Mg/Ml Inj 2 Ml) 4 mg IV X1 ONE Stop: 04/11/24 15:53 Last Admin: 04/12/24 11:40 Dose: Not Given Oxycodone/Acetaminophen (Oxycodone/Apap 5/325 Tablet) 1 tab PO Q6H PRN PRN Reason: PAIN SCALE 4-6 (Moderate Stop: 04/16/24 15:23 Oxycodone/Acetaminophen (Oxycodone/Apap 5/325 Tablet) 1 tab PO Q6H PRN PRN Reason: PAIN SCALE 4-6 (Moderate Stop: 04/16/24 15:23 Pharmacy Consult (Vancomycin Pharmacy To Dose 1 Each Each) 1 each IV QDAY PRN PRN Reason: CONSULT Stop: 05/11/24 11:59 Sevelamer Carbonate (Sevelamer Carbonate 800 Mg Tablet) 800 mg PO TIDWM [facility] Stop: 05/12/24 11:59 Assessment & Plan Plan 53 y/o M with PMHx significant for diabetes mellitus, hypertension, diabetic/hypertensive nephrosclerosis, ESRD on dialysis M/W/F, and and CVA w/right sided residual deficits presented to the ED from senior care facility for chief complaint of abdominal pain x 3 days, admitted for ruptured appendicitis. #End-stage renal disease on dialysis M/W/F Patient developed ESRD secondary to diabetic nephrosclerosis. On admission labs showed BUN 60, creatinine 6.6, eGFR 9. Plan: -Dialysis as per patient's regular schedule -today -Monitor daily labs -Avoid nephrotoxic agents -Renally dose medications #Hiccups Patient complaining of hiccups, likely secondary to laparoscopic procedure. -Thorazine 25 mg p.o. 3 times daily #Sepsis #Ruptured acute appendicitis #Healthcare acquired pneumonia #Diabetes mellitus #Hypertension #Hypertensive nephrosclerosis #CVA (2021) Management as per primary team. DVT prophylaxis: Heparin GI prophylaxis: Protonix Diet: Diabetic clear liquid Lines: Peripheral IV Code status: Full code Thank you for allowing participate in the care of this patient. Plan of care discussed with attending Dr. Nunez. Reilly Hill MD PGY-1 Attending Provider Attestation/Addendum Patient seen and examined with resident physician Dr. Hill. Note reviewed, agree with findings and recommendations. Patient currently seen on dialysis. Tolerating dialysis without any problems. Hemodialysis for 3 hours, 2K, ultrafiltration 0 L, Epogen 6000, no heparin ordered. Plan of care discussed with the dialysis nurse. Please see dialysis flowsheet for further details. S/p ruptured appendix and appendectomy with Dr. Starks. Thank you Dr. Rondon for allowing me to participate in the care of Mr. Melendez
--- NOTE | 2024-04-12 13:52 | PC.NURSE ---
DURING HEMODIALYSIS - - BP Drop, Albumin 25 g (26% X 100 ml) IVP, UF Goal to 1.5L, monitor closely
[2024-04-12] MEDS: ALBUMIN HUMAN 25% IVPB 25 GM/100 ML BTL IV (13:53)
--- NOTE | 2024-04-12 14:20 | PC.NURSE ---
During Dialysis - - 100 ml NS for BP Drop, recheck in 15 min, Pt stable, A&O X 3
[2024-04-12] MEDS: EPOETIN ALFA-EPBX INJ 10,000 UNIT/ML VIAL (ESRD) 10000 UNIT SC (15:00)
--- NOTE | 2024-04-12 15:03 | PC.NURSE ---
DURING DIALYSIS - -Slight BP Drop, UF [id number], monitor closely.
--- NOTE | 2024-04-12 16:27 | PC.NURSE ---
Tx ended, C/O pain, R-side 03/09, will report to PCN, Loss 1.3 L
--- NOTE | 2024-04-12 16:46 | ESPR_ITS ---
<Statement entered by Brayden Rosas MD - 04/13/24 16:22> Senior Resident Attestation: I supervised/discussed management plan with resident physician Dr. Espinoza, and was involved in the care of this patient. I personally saw and examined the patient and discussed the assessment and plan with the entire medicine team, including my attending. I agree with the assessment and plan as documented. Patient was seen and examined by bedside, doing fairly well, patient's postoperative day 1, continues to endorse generalized abdominal tenderness more so in RLQ likely in setting of ruptured appendix and peritonitis, continuing patient on IV Zosyn, lap sites appear clean and healing well, patient underwent dialysis per his schedule, white count remains elevated will continue to trend, patient underwent gallbladder ultrasound which was noted for distended gallbladder with thickened wall. Patient's blood cultures grew GPC / likely contamination will await final results. Patient reports constipation for a few days, will start patient on Docusate and senna. Patient's care was discussed with attending physician, Dr. Nela Rosas MD PGY-3 Documentation for date of: 04/12/24 Subjective Subjective Interval history: A 53-year-old male patient with past medical history of diabetes mellitus, hypertension, diabetic/hypertensive nephrosclerosis, end-stage renal disease on dialysis M/W/F, and and CVA (acute infarcts left basal ganglia and acute infarct left caudate nucleus on 04/2022) w/right sided residual deficits presented to the ED of [facility] from [facility] facility for chief complaint of abdominal pain x 3 days, progressively worsening. No acute overnight events. Patient seen and observed at bedside. Blood pressure: 88/48 in the morning, MAP 61, 30 minutes, blood pressure was repeated and it resulted in 126/64. Patient continues to endorse diffuse and generalized throughout his abdomen. He endorses constipations for the past 5 days and not being able to produce urine. Patient denies headache, fever, chills, chest pain, palpitation, shortness of breath, dizziness, nausea, or vomiting. Will continue IV Zozyn. HIDA scan ordered for possible cholecystitis. Exam Vital Signs Temp Pulse Resp BP Pulse Ox O2 Del Method O2 Flow Rate 98.2 F 87 18 139/71 H 94 L Room Air 4 04/12/24 16:29 04/12/24 16:18 04/12/24 16:29 04/12/24 16:29 04/12/24 16:29 04/12/24 12:00 04/11/24 16:45 Narrative Exam Constitutional: Arabic-speaking, bed bound, middle-age male. well-nourished, in no acute distress, slurred speech. HEENT: NCAT, EOMI, reactive round pupils b/l, moist mucous membranes, on room air Lung: CTAB, no wheezing, no rhonchi, no crackles. Heart: Regular S1S2, no murmurs, gallops, or rubs Abdomen: Soft, tender with [place] noted at midline, ++bowel sounds present throughout. Extremities: No cyanosis, clubbing, no edema of b/l legs, residual paralysis of right upper and lower extremities. Neurologic: Motor deficits noted on right UE and LE, AOx3, appropriate affect Skin: Warm, dry, no lesions or rashes noted Objective Labs 04/13/24 05:23 04/13/24 05:23 Labs: Laboratory Results - last 24 hr 04/11/24 04/11/24 04/12/24 12:07 16:43 05:04 WBC 14.2 H RBC 2.66 L Hgb 8.4 L Hct 26.7 L MCV 100 MCH 31.6 MCHC 31.5 RDW Std Deviation 51.4 H Plt Count 302 Neut % (Auto) 86 H Lymph % (Auto) 6 L [place] % (Auto) 8 Eos % (Auto) 0 Baso % (Auto) 0 Neut # (Auto) 12.1 H Lymph # (Auto) 0.8 L [place] # (Auto) 1.2 H Eos # (Auto) 0.0 Baso # (Auto) 0.0 Immature Gran # (Auto) 0.07 H Absolute Nucleated RBC 0.00 Immature Gran % 1 H Nucleated RBC % 0 Sodium 132 L Potassium 5.6 H D Chloride 97 L Carbon Dioxide 27.5 Anion Gap 8 BUN 70 H Creatinine 7.3 H* D Estim Creat Clear Calc 11.1 L eGFR 8 L* BUN/Creatinine Ratio 10 L Glucose [address] Glu mg/dL 117 114 Hemoglobin A1c 5.7 5.6 Calculated Osmolality 292 Calcium 8.6 Corrected Calcium 9.0 Phosphorus 7.1 H Magnesium 1.9 Albumin 3.5 D Hepatitis A IgM Ab Hep Bs Antigen Hep Bs Antibody Hep B Core IgM Ab Hepatitis C Antibody SARS-CoV-2 Ag (Rapid) Negative 04/12/24 09:55 WBC RBC Hgb Hct MCV MCH MCHC RDW Std Deviation Plt Count Neut % (Auto) Lymph % (Auto) [place] % (Auto) Eos % (Auto) Baso % (Auto) Neut # (Auto) Lymph # (Auto) [place] # (Auto) Eos # (Auto) Baso # (Auto) Immature Gran # (Auto) Absolute Nucleated RBC Immature Gran % Nucleated RBC % Sodium Potassium Chloride Carbon Dioxide Anion Gap BUN Creatinine Estim Creat Clear Calc eGFR BUN/Creatinine Ratio Glucose Estimated Ave Glu mg/dL Hemoglobin A1c Calculated Osmolality Calcium Corrected Calcium Phosphorus Magnesium Albumin Hepatitis A IgM Ab Non Reactive Hep Bs Antigen Non Reactive Hep Bs Antibody Reactive (Immune) Hep B Core IgM Ab Non Reactive Hepatitis C Antibody Non Reactive SARS-CoV-2 Ag (Rapid) Quality Measures Quality Measures VTE prophylaxis Assessment & Plan Assessment Current Active Medications: Generic Name Dose Route Start Last Admin Trade Name Freq PRN Reason Stop Dose Admin Acetaminophen 650 mg 04/11/24 15:42 Acetaminophen 325 Mg Tablet PO 05/11/24 15:23 Q6H PRN Fever >101.5 or pain 1-3 Aspirin 81 mg 04/12/24 09:00 04/12/24 07:49 Aspirin Ec 81 Mg Tabec PO 05/12/24 08:59 81 mg QDAY OVI Administration Atorvastatin Calcium 80 mg 04/12/24 21:00 Atorvastatin Calcium 20 Mg Tablet PO 05/12/24 20:59 HS OVI Calcium Acetate 667 mg 04/12/24 08:00 04/12/24 12:46 Calcium Acetate 667 Mg Tablet PO 05/12/24 07:59 667 mg TIDWM OVI Administration Chlorpromazine HCl 25 mg 04/12/24 09:00 04/12/24 10:05 Chlorpromazine 25 Mg Tablet PO 05/12/24 08:59 25 mg TID OVI Administration Dextrose 25 ml 04/11/24 15:48 Dextrose 50%-Water Inj 50 Ml Syringe IV 05/11/24 15:47 Q15MIN PRN BG 50-70 responsive npo pt Dextrose 50 ml 04/11/24 15:48 Dextrose 50%-Water Inj 50 Ml Syringe IV 05/11/24 15:47 Q15MIN PRN BG <50 OR BG <70 & pt unresponsive Docusate Sodium 100 mg 04/11/24 14:56 Docusate Sod 100 Mg Capsule PO 05/11/24 14:55 QDAY PRN CONSTIPATION Protocol Glucagon 1 mg 04/11/24 15:48 Glucagon Inj 1 Mg Vial IM Q15MIN PRN BG <70, and no IV access Heparin Sodium (Porcine) 5,000 unit 04/12/24 14:00 Heparin Sod Inj 5000 Unit/Ml Vial SC 04/26/24 13:59 Q8HR OVI Hydromorphone HCl 1 mg 04/11/24 15:39 04/12/24 10:06 Hydromorphone Inj 2 Mg/Ml Vial IVP 04/16/24 15:38 1 mg Q4HR PRN Administration Pain 7-10 Piperacillin/Tazobactam/Dextrose 50 mls @ 12.5 mls/hr 04/11/24 21:00 04/12/24 07:49 Zosyn IV 04/18/24 20:59 12.5 mls/hr Q12HR OVI Administration Albumin Human 25 gm in 100 mls @ 100 mls/min 04/12/24 09:24 04/12/24 13:53 Albuminar-25 Ivpb IV 100 mls/min PRN PRN Administration DIALYSIS Insulin Human Lispro 0 unit 04/11/24 17:00 04/12/24 11:53 Insulin Lispro (Admelog) 1 Unit/0.01 Ml Unit SC 05/11/24 16:59 1 unit ACHS OVI Administration Protocol Ondansetron HCl 4 mg 04/11/24 15:24 Ondansetron Inj 2 Mg/Ml Inj 2 Ml IV 05/11/24 15:23 Q4HR PRN NAUSEA OR VOMITING Protocol Pantoprazole Sodium 40 mg 04/11/24 20:00 04/12/24 07:49 Pantoprazole Inj 40 Mg Vial IVP 05/11/24 19:59 40 mg QDAY OVI Administration Plan A 53-year-old male patient with past medical history of diabetes mellitus, hypertension, diabetic/hypertensive nephrosclerosis, end-stage renal disease on dialysis M/W/F, and CVA (acute infarcts left basal ganglia and acute infarct left caudate nucleus on 04/2022) w/right sided residual deficits presented to the ED of [facility] from [facility] facility for chief complaint of abdominal pain x 3 days. Patient was tachypneic, tachycardic, with elevated WBC on ED presentation. Found to have ruptured acute appendicitis on CT abdomen and pelvis. He was given 2 L IV fluid per sepsis protocol in the ED, Zozyn and vancomycin. Patient was admitted for management of sepsis secondary to ruptured acute appendicitis, requiring laparoscopic appendectomy with no surgical complications. #Peritonitis #?Acute cholecystitis #Sepsis, improving Secondary to #Ruptured acute appendicitis, resolved #Status post laparoscopic appendectomy, postop day 1 #Leukocytosis Ddx: Cholecystitis vs peritonitis Patient presented with generalized, severe abdominal pain worsening over 3 nights. Patient met 3 out of 4 SIRS: tachycardia, tachypnea and elevated WBCs found to have ruptured appendicitis (source) on CT a/p. Surgery team performed laparoscopic appendectomy with no surgical complications. Peritonitis is noted in setting of constipation and severe abdominal tenderness. Possible underlying acute calculus cholecystitis with positive Merino sign on physical examination noted. Lactic acid 1.3, LDH 150. Procalcitonin 21.80. CT ab/pelvis: Bibasilar pneumonia, primary hepatocellular disease. Recommend hepatobiliary sonography to exclude acute calculus cholecystitis. Acute appendicitis with localized rupture and probable peritonitis, no focal pelvic abscess. HIDA showed: gallbladder sludge, no gallstones, gallbladder wall is thickened, measured up to 4.5 mm, common bile duct 4 mm. Plan: -Consulted Dr. Starks; conducted laparoscopic appendectomy; advance to clear liquid diet. -MRCP ordered; f/up -clear liq diet -IV Zosyn 3.375 (04/11- -IV Zofran every 4 hours as needed for Nausea/vomitting -IV Dilaudid every 4 hours as needed #?Healthcare acquired pneumonia Questionable pneumonia as patient denies fever, chills, shortness of breath, cough or mucus production. No immediate sick contacts or recent travel. Imaging reveals pneumonia in the right upper lobe. CT ab/pelvis: Bibasilar pneumonia. Chest x-ray: Suspicious for right upper lobe pneumonia. -Antibiotics for appendicitis provides coverage for pneumonia #End-stage renal disease on dialysis M/W/F Patient developing ESRD secondary to diabetic nephrosclerosis. Patient received dialysis today. BUN 70, creatinine 6.6 increased to 7.3, GFR 8. -Consulted nephrology; appreciate recommendations -dialysis per schedule -renal panel in am -Avoid nephrotoxic agents -Renally dose medications #Diabetes mellitus Chronic, uncontrolled Patient has a history of diabetes mellitus. Glucose stable less than 180. -Sliding scale insulin -Bedside glucose checks -Hypoglycemic protocol #Hypertension #Hypertensive nephrosclerosis Patient has a history of hypertension. Patient's blood pressure remains soft. -Hold antihypertensives at this moment #CVA (2021) Acute infarcts of left basal ganglia and acute infarct left caudate nucleus on 04/2022. Patient has residual paralysis of right upper and lower extremities. Slurred speech noted. -Will restart home aspirin, clopidogrel and atorvastatin Discussed case with my attending Dr. Rondon and senior Brayden Rosas, PGY-3. Thank you, Nisreen Salgado, PGY-2 Attending Provider Attestation/Addendum I have discussed and was present for the essential components of the history, physical examination, diagnosis, and treatment plan with the resident. I agree with the patient's care as documented by the resident and amended herein by me. Vicente Rondon, DO. Although this document has been carefully reviewed, there may still be some phonetic and other typographical errors. These errors are purely grammatical due to imperfections in the software program and should not be construed in any way to compromise the substance of the patient's medical care during this visit.
[2024-04-12] MEDS: HEPARIN SOD INJ 5000 UNIT/ML VIAL SC ×2 (16:57→21:16)
[2024-04-12] MEDS: DOCUSATE SOD 100 MG CAPSULE PO (20:32)
[2024-04-12] MEDS: ATORVASTATIN CALCIUM 20 MG TABLET 80 MG PO (20:32)
[2024-04-13] VITALS (9 sets, daily range): BP systolic 126–167; BP diastolic 73–99; PULSE 77–123; RESP 15–100; TEMP 36.1–36.9; O2SAT 94–97; BMI 22.8
--- NOTE | 2024-04-13 | XR_ITS ---
MRI abdomen, without contrast. MRCP Date and time of exam: April 13, 2024 1246 hours INDICATIONS: Upper abdominal pain beginning 5 days ago, gallbladder wall is thickened gallbladder wall and gallbladder sonogram April 12, 2024 Technique: Multiple axial and coronal images of the abdomen have been obtained with the Siemens 1.5T MRI scanner. Images obtained included T1 weighted transverse images, T2-weighted transverse images, T2-weighted transverse images fat-suppressed, T2 weighted haste fat suppressed transverse images, T1 weighted images, in and out of phase images, T2-weighted coronal images, breath hold, T2 weighted haze coronal images as well as T2 weighted coronal thick slab images, MRCP. Findings: Distended gallbladder, no gallbladder wall thickening or edema Common hepatic, bile duct 4 mm no stones No pancreatic edema Splenomegaly 14 cm Hepatomegaly 17 cm Multiple prominently fluid distended small bowel loops IMPRESSION: Distended gallbladder, negative for cholecystitis Normal common hepatic common bile duct Hepatosplenomegaly Recommend [address] abdominal series follow-up to confirm small bowel obstruction
[2024-04-13] MEDS: SENNA TABLET 1 TAB PO (04:04)
[2024-04-13] MEDS: HEPARIN SOD INJ 5000 UNIT/ML VIAL SC ×3 (05:14→21:17)
[2024-04-13] MEDS: CHLORPROMAZINE 25 MG PO ×2 (05:14→14:22)
[2024-04-13 05:48] LABS: Basophils % (Auto) 0 % (0-2.5); Eosinophils % (Auto) 0 % (0-10); Hematocrit 30.8 % (41.0-53.0); Hemoglobin 9.6 g/dL (13.5-16.0); Immature Granulocytes % (Auto) 1 % (0-0); Immature Granulocytes Auto 0.08 Thou/mm3 (0.00-0.00); Lymphocytes # (Auto) 0.6 Thou/mm3 (1.0-4.8); Lymphocytes % (Auto) 4 % (10-50); Mean Corpuscular HGB Conc 31.2 g/dl (31.0-37.0); Mean Corpuscular Hemoglobin 31.6 pg (25.0-35.0); Mean Corpuscular Volume 101 fL (80-100); Monocytes # (Auto) 1.1 Thou/mm3 (0.0-0.8); Monocytes % (Auto) 7 % (0-12); Neutrophils # (Auto) 12.8 Thou/mm3 (1.8-7.7); Neutrophils % (Auto) 88 % (37-80); Nucleated Red Blood Cell % 0 /100 WBC (0); Platelet Count 375 Thou/mm3 (140-440); Red Blood Count 3.04 Miln/mm3 (4.50-5.90); White Blood Count 14.6 Thou/mm3 (3.8-10.6)
[2024-04-13] MEDS: HYDROmorphone INJ 2 MG/ML VIAL 1 MG IVP ×2 (06:14→19:42)
[2024-04-13 06:25] LABS: Albumin, Serum 4.3 gm/dL (3.5-5.0); Anion Gap 9 (7-16); BUN/Creatinine Ratio 8 Ratio (12-20); Blood Urea Nitrogen 42 mg/dL (9-23); Calcium 9.7 mg/dL (8.3-10.6); Calcium (Corrected) 9.7 mg/dL (8.5-10.1); Carbon Dioxide 28.8 mMol/L (20.0-31.0); Chloride 96 mMol/L (98-107); Creatinine (Component) 5.4 mg/dL (0.6-1.3); Estimated Creatinine Clearance 14.9 mL/min (>60); Glucose 193 mg/dL (74-106); Osmolality,Calculated 283 (275-295); Phosphorous 4.6 mg/dL (2.4-5.1); Potassium 4.7 mMol/L (3.4-5.1); Sodium 134 mMol/L (136-145); eGFR 12 See Note
[2024-04-13 08:28] LABS: Alanine Aminotransferase 11 U/L (10-49); Alkaline Phosphatase 138 U/L (46-116); Aspartate Amino Transferase 18 U/L (0-34); Bilirubin,Direct 0.3 mg/dL (0.0-0.3); Bilirubin,Total 0.5 mg/dL (0.3-1.2); Total Protein 7.4 gm/dL (5.7-8.2)
--- NOTE | 2024-04-13 09:08 | PD.RESPRO ---
Documentation for date of: 04/13/24 Subjective Subjective Interval history: 53 y/o M with PMHx significant for diabetes mellitus, hypertension, diabetic/hypertensive nephrosclerosis, ESRD on dialysis M/W/, and and CVA w/right sided residual deficits presented to the ED from long-term facility for chief complaint of abdominal pain x 3 days. Patient endorses that the pain was diffuse and generalized throughout his abdomen. He rated it as an 8 out of 10 in severity diffuse pain. The pain was not associated with food. Patient endorses that he did not any eat anything out of the ordinary. He also endorses that he has not had any urine for the past 3 days and he has not produced stool over the past 5 days. Patient denies headache, fever, chills, chest pain, palpitation, shortness of breath, dizziness, nausea, vomiting, or diarrhea. CT A/P showed acute appendicitis with localized rupture. Patient was admitted for management of sepsis secondary to ruptured acute appendicitis. In ED labs significant for bicarb 30.3, BUN 60, creatinine 6.6, eGFR 9, procalcitonin 21.8. Patient given 1 L IV bolus, vancomycin and Zosyn. Patient underwent laparoscopic appendectomy which revealed diffuse peritonitis, patient underwent abdominal washout. Procedures well-tolerated. Patient had some episodes of hypotension, was transferred to telemetry for further monitoring. Nephrology consulted for ESRD requiring dialysis M// schedule. Patient seen and examined at bedside. Patient appears mildly uncomfortable, mild abdominal tenderness. Patient complains of persistent hiccups. Labs today showed potassium 5.6, BUN 70, creatinine 7.3, eGFR 8. Plan for dialysis today as per patient's regular schedule. 04/13: Patient seen and examined at bedside. Patient appears mildly uncomfortable, complains of constipation, discussed with primary team. Patient denies hiccups. Currently on diabetic clear liquid diet, tolerating well. BUN 42, creatinine 5.4, eGFR 12. Plan for dialysis tomorrow as per patient's regular schedule. Exam Vital Signs Temp Pulse Resp BP Pulse Ox O2 Del Method O2 Flow Rate 98.1 F 77 18 126/84 97 Room Air 4 04/13/24 04:00 04/13/24 07:24 04/13/24 07:24 04/13/24 05:00 04/13/24 04:00 04/13/24 04:00 04/11/24 16:45 Narrative Exam PE: Gen: Well-developed and well-nourished. HEENT: NCAT, PERRLA, EOMI, MMM, anicteric conjunctivae. CVS: normal S1 and S2. RRR. No M/R/G. Resp: CTA B/L. No rhonchi, rales, crackles or wheezing. Abd: soft, non-distended. Mild diffuse tenderness. Laparoscopic procedure incisions, clean, nonerythematous. MSK: Good ROM in LUE & LLE. No edema or rash. Neuro: CN II-XII grossly intact. Strength 5/5 in LUE & LLE. Alert and oriented x3. Right-sided paralysis secondary to previous stroke. Psych: appropriate mood and affect. Objective Labs 04/13/24 05:23 04/13/24 05:23 Labs: Laboratory Results - last 24 hr 04/12/24 04/13/24 09:55 05:23 WBC 14.6 H RBC 3.04 L Hgb 9.6 L Hct 30.8 L MCV 101 H MCH 31.6 MCHC 31.2 RDW Std Deviation 52.0 H Plt Count 375 D Neut % (Auto) 88 H Lymph % (Auto) 4 L [place] % (Auto) 7 Eos % (Auto) 0 Baso % (Auto) 0 Neut # (Auto) 12.8 H Lymph # (Auto) 0.6 L [place] # (Auto) 1.1 H Eos # (Auto) 0.0 Baso # (Auto) 0.0 Immature Gran # (Auto) 0.08 H Absolute Nucleated RBC 0.00 Immature Gran % 1 H Nucleated RBC % 0 Sodium 134 L Potassium 4.7 D Chloride 96 L Carbon Dioxide 28.8 Anion Gap 9 BUN 42 H Creatinine 5.4 H* D Estim Creat Clear Calc 14.9 L eGFR 12 L* BUN/Creatinine Ratio 8 L Glucose 193 H Calculated Osmolality 283 Calcium 9.7 Corrected Calcium 9.7 Phosphorus 4.6 Total Bilirubin 0.5 Direct Bilirubin 0.3 AST 18 ALT 11 Alkaline Phosphatase 138 H Total Protein 7.4 Albumin 4.3 D Hepatitis A IgM Ab Non Reactive Hep Bs Antigen Non Reactive Hep Bs Antibody Reactive (Immune) Hep B Core IgM Ab Non Reactive Hepatitis C Antibody Non Reactive Quality Measures Quality Measures VTE prophylaxis Assessment & Plan Assessment Current Active Medications: Generic Name Dose Route Start Last Admin Trade Name [place] PRN Reason Stop Dose Admin Acetaminophen 650 mg 04/11/24 15:42 Acetaminophen 325 Mg Tablet PO 05/11/24 15:23 Q6H PRN Fever >101.5 or pain 1-3 Aspirin 81 mg 04/12/24 09:00 04/12/24 07:49 Aspirin Ec 81 Mg Tabec PO 05/12/24 08:59 81 mg QDAY OVI Administration Atorvastatin Calcium 80 mg 04/12/24 21:00 04/12/24 20:32 Atorvastatin Calcium 20 Mg Tablet PO 05/12/24 20:59 80 mg HS OVI Administration Calcium Acetate 667 mg 04/12/24 08:00 04/12/24 16:56 Calcium Acetate 667 Mg Tablet PO 05/12/24 07:59 667 mg TIDWM OVI Administration Chlorpromazine HCl 25 mg 04/12/24 09:00 04/13/24 05:14 Chlorpromazine 25 Mg Tablet PO 05/12/24 08:59 25 mg TID OVI Administration Dextrose 25 ml 04/11/24 15:48 Dextrose 50%-Water Inj 50 Ml Syringe IV 05/11/24 15:47 Q15MIN PRN BG 50-70 responsive npo pt Dextrose 50 ml 04/11/24 15:48 Dextrose 50%-Water Inj 50 Ml Syringe IV 05/11/24 15:47 Q15MIN PRN BG <50 OR BG <70 & pt unresponsive Docusate Sodium 100 mg 04/11/24 14:56 04/12/24 20:32 Docusate Sod 100 Mg Capsule PO 05/11/24 14:55 100 mg QDAY PRN Administration CONSTIPATION Protocol Glucagon 1 mg 04/11/24 15:48 Glucagon Inj 1 Mg Vial IM Q15MIN PRN BG <70, and no IV access Heparin Sodium (Porcine) 5,000 unit 04/12/24 14:00 04/13/24 05:14 Heparin Sod Inj 5000 Unit/Ml Vial SC 04/26/24 13:59 5,000 unit Q8HR OVI Administration Hydromorphone HCl 1 mg 04/11/24 15:39 04/13/24 06:14 Hydromorphone Inj 2 Mg/Ml Vial IVP 04/16/24 15:38 1 mg Q4HR PRN Administration Pain 7-10 Piperacillin/Tazobactam/Dextrose 50 mls @ 12.5 mls/hr 04/11/24 21:00 04/12/24 20:31 Zosyn IV 04/18/24 20:59 12.5 mls/hr Q12HR OVI Administration Albumin Human 25 gm in 100 mls @ 100 mls/min 04/12/24 09:24 04/12/24 13:53 Albuminar-25 Ivpb IV 100 mls/min PRN PRN Administration DIALYSIS Insulin Glargine 5 unit 04/13/24 09:00 Insulin Glargine (Lantus) 5 Unit/0.05 Ml (Per 5 Units) SC 05/13/24 08:59 QDAY OVI Insulin Human Lispro 0 unit 04/11/24 17:00 04/12/24 20:32 Insulin Lispro (Admelog) 1 Unit/0.01 Ml Unit SC 05/11/24 16:59 1 unit ACHS OVI Administration Protocol Ondansetron HCl 4 mg 04/11/24 15:24 Ondansetron Inj 2 Mg/Ml Inj 2 Ml IV 05/11/24 15:23 Q4HR PRN NAUSEA OR VOMITING Protocol Pantoprazole Sodium 40 mg 04/11/24 20:00 04/12/24 07:49 Pantoprazole Inj 40 Mg Vial IVP 05/11/24 19:59 40 mg QDAY OVI Administration Sennosides 1 tab 04/13/24 03:47 04/13/24 04:04 Senna Tablet PO 05/13/24 03:46 1 tab QDAY PRN Administration constipation Protocol Plan 53 y/o M with PMHx significant for diabetes mellitus, hypertension, diabetic/hypertensive nephrosclerosis, ESRD on dialysis M/W/, and and CVA w/right sided residual deficits presented to the ED from long-term facility for chief complaint of abdominal pain x 3 days, admitted for ruptured appendicitis. #End-stage renal disease on dialysis M/W/F Patient developed ESRD secondary to diabetic nephrosclerosis. On admission labs showed BUN 60, creatinine 6.6, eGFR 9. Plan: -Dialysis as per patient's regular schedule -tomorrow -Monitor daily labs -Avoid nephrotoxic agents -Renally dose medications #Hiccups -resolved Patient complaining of hiccups, likely secondary to laparoscopic procedure. Resolved with treatment. -Thorazine 25 mg p.o. 3 times daily #Constipation #Sepsis #Ruptured acute appendicitis #Healthcare acquired pneumonia #Diabetes mellitus #Hypertension #Hypertensive nephrosclerosis #CVA (2021) Management as per primary team. DVT prophylaxis: Heparin GI prophylaxis: Protonix Diet: Diabetic clear liquid Lines: Peripheral IV Code status: Full code Thank you for allowing participate in the care of this patient. Plan of care discussed with attending Dr. Nunez. Reilly Hill MD PGY-1 Attending Provider Attestation/Addendum Patient seen and examined with resident physician Dr. Hill. Note reviewed, agree with findings and recommendations. Patient scheduled for dialysis tomorrow. Complaining of abdominal discomfort and constipation. Recommended to wait for surgical recommendations.
[2024-04-13] MEDS: PIPER/TAZO 3.375 GM 50 ML IV ×2 (09:22→21:16)
[2024-04-13] MEDS: bisacodyL 5 MG TABEC 10 MG PO (09:22)
[2024-04-13] MEDS: PANTOPRAZOLE INJ 40 MG VIAL IVP (09:22)
[2024-04-13] MEDS: DOCUSATE SOD 100 MG CAPSULE PO (09:22)
[2024-04-13] MEDS: ASPIRIN EC 81 MG TABEC PO (09:22)
--- NOTE | 2024-04-13 10:01 | PD.SURPROG ---
Documentation for date of: 04/13/24 Subjective Subjective Narrative: Patient is seen and examined. He is resting comfortably, however he is complaining of abdominal pain. He is tolerating liquid diet without nausea or vomiting. He has not had bowel movement yet Exam Vital Signs Temp Pulse Resp BP Pulse Ox O2 Del Method O2 Flow Rate 97.1 F 116 H 20 136/75 H 94 L Room Air 4 04/13/24 08:00 04/13/24 08:00 04/13/24 08:00 04/13/24 08:00 04/13/24 08:00 04/13/24 08:00 04/11/24 16:45 Constitutional Constitutional: no acute distress Routine Abdominal Exam Comments: Abdomen is soft and mildly distended. He has tenderness to palpation throughout the abdomen, no rebound tenderness or peritonitis at this time. Incisions are clean, dry and intact Assessment & Plan Assessment Additional comments: Postop day #2 status post laparoscopic appendectomy for perforated appendicitis Plan Continue IV antibiotics. Will keep patient on liquid diet until return of GI function. Procedures Procedures Laparoscopic appendectomy with abdominal washout
--- NOTE | 2024-04-13 11:34 | PC.SS ---
SS met with pt regarding his d/c plan. Pt is alert/oriented. Pt was admitted for Abdominal Pain. Pt states he transfers with assistance into wheelchair and requires assistance with ADLs. Pt named his , Silvana Pickens medical decision maker if he is unable. Pt will return to [facility] upon dc. SS spoke to Lizet at [facility] who is requesting PT work with pt while being hospitalized. DC Plan: Return to [facility] Next of Kin: Silvana Pickens, , phone# [phone]
--- NOTE | 2024-04-13 12:13 | XR_ITS ---
Examination: Abdomen AP single view Technique: AP portable supine abdomen, single view Exam date and time: April 13, 2024 1419 hours INDICATIONS: Abdominal pain and constipation this week. FINDINGS: Large amounts of stool throughout the colon However, multiple air distended small bowel loops No free air IMPRESSION: Small bowel obstruction, suggest Gastrografin small bowel series follow-up
--- NOTE | 2024-04-13 12:24 | ESPR_ITS ---
<Statement entered by Brayden Rosas MD - 04/14/24 16:02> Senior Resident Attestation: I supervised/discussed management plan with resident physician Dr. Espinoza, and was involved in the care of this patient. I personally saw and examined the patient and discussed the assessment and plan with the entire medicine team, including my attending. Patient's care was discussed with attending physician, Dr. Nela Rosas MD PGY-3 Documentation for date of: 04/13/24 Subjective Subjective Interval history: Absence of acute overnight events. Patient seen and evaluated at bedside with the team. Patient has only had low amount of fluids. He has mostly avoided his liquid diet. Patient states he does not have an appetite and his abdominal bloating is in 10 out of 10 pain. He is currently on IV Zosyn and will continue treatment. He is found to have SBO on KUB. Started n.p.o. and NG tube with low intermittent suction. Exam Vital Signs Temp Pulse Resp BP Pulse Ox O2 Del Method O2 Flow Rate 97.1 F 116 H 20 136/75 H 94 L Room Air 4 04/13/24 08:00 04/13/24 08:00 04/13/24 08:00 04/13/24 08:00 04/13/24 08:00 04/13/24 08:00 04/11/24 16:45 Narrative Exam Constitutional: Mozambican-speaking, bed bound, middle-age male, slurred speech. HEENT: NCAT, EOMI, reactive round pupils b/l, moist mucous membranes, on room air Lung: CTAB, no wheezing, no rhonchi, no crackles. Heart: Regular S1S2, no murmurs, gallops, or rubs Abdomen: Soft, tenderness in all 4 quadrants, left lower quadrant increased tenderness, [place] noted at midline, hypoactivebowel sounds present throughout. Extremities: No cyanosis, no edema of b/l legs, residual deficits of right upper and lower extremities s/p CVA. AV fistula on right arm. Neurologic: Motor deficits noted on right UE and LE, AOx3, appropriate affect Skin: Warm, dry, no lesions or rashes noted Objective Labs 04/13/24 05:23 04/13/24 05:23 Labs: Laboratory Results - last 24 hr 04/13/24 05:23 WBC 14.6 H RBC 3.04 L Hgb 9.6 L Hct 30.8 L MCV 101 H MCH 31.6 MCHC 31.2 RDW Std Deviation 52.0 H Plt Count 375 D Neut % (Auto) 88 H Lymph % (Auto) 4 L [place] % (Auto) 7 Eos % (Auto) 0 Baso % (Auto) 0 Neut # (Auto) 12.8 H Lymph # (Auto) 0.6 L [place] # (Auto) 1.1 H Eos # (Auto) 0.0 Baso # (Auto) 0.0 Immature Gran # (Auto) 0.08 H Absolute Nucleated RBC 0.00 Immature Gran % 1 H Nucleated RBC % 0 Sodium 134 L Potassium 4.7 D Chloride 96 L Carbon Dioxide 28.8 Anion Gap 9 BUN 42 H Creatinine 5.4 H* D Estim Creat Clear Calc 14.9 L eGFR 12 L* BUN/Creatinine Ratio 8 L Glucose 193 H Calculated Osmolality 283 Calcium 9.7 Corrected Calcium 9.7 Phosphorus 4.6 Total Bilirubin 0.5 Direct Bilirubin 0.3 AST 18 ALT 11 Alkaline Phosphatase 138 H Total Protein 7.4 Albumin 4.3 D Quality Measures Quality Measures VTE prophylaxis Assessment & Plan Assessment Current Active Medications: Generic Name Dose Route Start Last Admin Trade Name Freq PRN Reason Stop Dose Admin Acetaminophen 650 mg 04/11/24 15:42 Acetaminophen 325 Mg Tablet PO 05/11/24 15:23 Q6H PRN Fever >101.5 or pain 1-3 Aspirin 81 mg 04/12/24 09:00 04/13/24 09:22 Aspirin Ec 81 Mg Tabec PO 05/12/24 08:59 81 mg QDAY OVI Administration Atorvastatin Calcium 80 mg 04/12/24 21:00 04/12/24 20:32 Atorvastatin Calcium 20 Mg Tablet PO 05/12/24 20:59 80 mg HS OVI Administration Calcium Acetate 667 mg 04/12/24 08:00 04/13/24 11:22 Calcium Acetate 667 Mg Tablet PO 05/12/24 07:59 Not Given TIDWM OVI Chlorpromazine HCl 25 mg 04/12/24 09:00 04/13/24 05:14 Chlorpromazine 25 Mg Tablet PO 05/12/24 08:59 25 mg TID OVI Administration Dextrose 25 ml 04/11/24 15:48 Dextrose 50%-Water Inj 50 Ml Syringe IV 12/12/24 15:47 Q15MIN PRN BG 50-70 responsive npo pt Dextrose 50 ml 04/11/24 15:48 Dextrose 50%-Water Inj 50 Ml Syringe IV 05/11/24 15:47 Q15MIN PRN BG <50 OR BG <70 & pt unresponsive Docusate Sodium 100 mg 04/13/24 09:15 04/13/24 09:22 Docusate Sod 100 Mg Capsule PO 05/13/24 09:14 100 mg BID OVI Administration Protocol Glucagon 1 mg 04/11/24 15:48 Glucagon Inj 1 Mg Vial IM Q15MIN PRN BG <70, and no IV access Heparin Sodium (Porcine) 5,000 unit 04/12/24 14:00 04/13/24 05:14 Heparin Sod Inj 5000 Unit/Ml Vial SC 04/26/24 13:59 5,000 unit Q8HR OVI Administration Hydromorphone HCl 1 mg 04/11/24 15:39 04/13/24 06:14 Hydromorphone Inj 2 Mg/Ml Vial IVP 04/16/24 15:38 1 mg Q4HR PRN Administration Pain 7-10 Piperacillin/Tazobactam/Dextrose 50 mls @ 12.5 mls/hr 04/11/24 21:00 04/13/24 09:22 Zosyn IV 04/18/24 20:59 12.5 mls/hr Q12HR OVI Administration Albumin Human 25 gm in 100 mls @ 100 mls/min 04/12/24 09:24 04/12/24 13:53 Albuminar-25 Ivpb IV 100 mls/min PRN PRN Administration DIALYSIS Sodium Chloride 500 mls @ 999 mls/hr 04/13/24 12:24 Ns IV 04/13/24 12:54 .Q31M ONE Insulin Glargine 5 unit 04/13/24 09:00 04/13/24 09:13 Insulin Glargine (Lantus) 5 Unit/0.05 Ml (Per 5 Units) SC 05/13/24 08:59 Not Given QDAY [facility] Insulin Human Lispro 0 unit 04/11/24 17:00 04/13/24 11:21 Insulin Lispro (Admelog) 1 Unit/0.01 Ml Unit SC 12/12/24 16:59 Not Given ACHS OVI Protocol Ondansetron HCl 4 mg 04/11/24 15:24 Ondansetron Inj 2 Mg/Ml Inj 2 Ml IV 05/11/24 15:23 Q4HR PRN NAUSEA OR VOMITING Protocol Pantoprazole Sodium 40 mg 04/11/24 20:00 04/13/24 09:22 Pantoprazole Inj 40 Mg Vial IVP 05/11/24 19:59 40 mg QDAY OVI Administration Sennosides 1 tab 04/13/24 03:47 04/13/24 04:04 Senna Tablet PO 05/13/24 03:46 1 tab QDAY PRN Administration constipation Protocol Plan 53-year-old male patient with diabetes mellitus, hypertension, diabetic/hypertensive nephrosclerosis, end-stage renal disease on dialysis M/W/F, and CVA (acute infarcts left basal ganglia and acute infarct left caudate nucleus on 04/2022) w/right sided residual deficits presented to the ED of [facility] from alf facility for chief complaint of abdominal pain x 3 days. Patient was septic with tachypneic, tachycardic, with elevated WBC on ED presentation. Found to have ruptured acute appendicitis on CT abdomen and pelvis. He was given 2 L IV fluid per sepsis protocol in the ED, Zozyn and vancomycin. Lactic acid 1.3, LDH 150. Procalcitonin 21.80. Patient was admitted for management of sepsis secondary to ruptured acute appendicitis, requiring laparoscopic appendectomy with no surgical complications. #Small bowel obstruction, new onset 04/13/24 #Sepsis, stable secondary to #Ruptured acute appendicitis, resolved #Status post laparoscopic appendectomy, postop day 2 #Peritonitis #Leukocytosis Ddx: Peritonitis vs SBO Patient presented with severe abdominal pain worsening over 3 nights, found to have ruptured appendicitis on imaging. He was septic on presentation secondary to ruptured appendicitis, now s/p appendectomy Peritonitis is noted in setting of constipation and severe abdominal tenderness. KUB showed new finding of SBO. CT ab/pelvis: Bibasilar pneumonia, primary hepatocellular disease. Recommend hepatobiliary sonography to exclude acute calculus cholecystitis. Acute appendicitis with localized rupture and probable peritonitis, no focal pelvic abscess. HIDA showed: gallbladder sludge, no gallstones, gallbladder wall is thickened, measured up to 4.5 mm, common bile duct 4 mm. MRCP : Distended gallbladder, negative for cholecystitis; hepatosplenomegaly. Plan: -IV Zosyn 3.375 every 12 hours (04/11- -IV Zofran every 4 hours as needed for Nausea/vomitting -IV Dilaudid every 4 hours as needed -Consulted Dr. Starks; conducted emergent laparoscopic appendectomy on 04/11/24; advance to clear liquid diet. -NG to with low intermittent suction -X-ray Gastrografin enema ordered; F/up -NPO in setting of new onset SBO -Follow-up CBC and CMP in AM #End-stage renal disease on dialysis M/W/F Patient developing ESRD secondary to diabetic nephrosclerosis. AV fistula present in right arm. BUN 42, 5.4, GFR 12. -Consulted nephrology; dialysis to be continued on 04/14/2024 -dialysis per schedule -renal panel in am -Avoid nephrotoxic agents -Renally dose medications #Healthcare acquired pneumonia, unlikely Questionable pneumonia as patient continues to deny any fever, chills, shortness of breath, cough or mucus. No immediate sick contacts or recent travel. Imaging reveals pneumonia in the right upper lobe. CT ab/pelvis: Bibasilar pneumonia. Chest x-ray: Suspicious for right upper lobe pneumonia. -Antibiotics for appendicitis provides coverage for pneumonia #Diabetes mellitus (A1c 5.6) Chronic, uncontrolled Patient has a history of diabetes mellitus. Glucose stable less than 180. -Sliding scale insulin -Bedside glucose checks -Hypoglycemic protocol -glargine 5 units SC #Hypertension #Hypertensive nephrosclerosis Patient has a history of hypertension. Patient's blood pressure remains soft. -Hold antihypertensives at this moment -Restart Coreg 6.25 mg twice daily if blood pressure systolic> 140, diastolic> 80 #CVA (2021) Acute infarcts of left basal ganglia and acute infarct left caudate nucleus on 04/2022. Patient has residual paralysis of right upper and lower extremities. Slurred speech noted. -aspirin 81mg daily and atorvastatin 40mg daily. #Acute cholecystitis, ruled out Health maintenance: DVT prophylaxis: Heparin GI prophylaxis: Pantoprazole Diet: NPO Code status: Full Dispo: Admitted for management of ruptured appendicitis requiring emergent appendectomy, found to have SBO. Placed on NG low intermittent suction. Pending x-ray Gastrografin. Discussed case with my attending Dr. Rondon and senior Brayden Rosas, PGY-3. Thank you, Nisreen Salgado, PGY-2 Attending Provider Attestation/Addendum I have discussed and was present for the essential components of the history, physical examination, diagnosis, and treatment plan with the resident. I agree with the patient's care as documented by the resident and amended herein by me. Vicente Rondon, DO. Patient seen and evaluated this AM. Vital sign stable, patient afebrile overnight however does have complaints of constipation in the AM. WBC slightly up trended to 14.6, BUN 42, creatinine 5.4, blood glucose over goal at 192. MRCP ordered to evaluate for cholecystitis, the patient did grow gram-positive cocci in the anaerobic bottle which is likely contamination, I do not feel the need to repeat blood cultures at this time. Will continue Zosyn 3.375 g every 12 hours per pharmacy recommendations and renal dosing. Appreciate surgery recommendations. MiraLAX and enema also ordered, SNF is also recommending physical therapy for placement which we will also order. Although this document has been carefully reviewed, there may still be some phonetic and other typographical errors. These errors are purely grammatical due to imperfections in the software program and should not be construed in any way to compromise the substance of the patient's medical care during this visit.
[2024-04-13] MEDS: LORazepam 0.5 MG TABLET PO (12:47)
[2024-04-13] MEDS: SODIUM CHLORIDE 0.9% 500 ML 500 ML 999 ML IV (14:22)
--- NOTE | 2024-04-13 17:44 | XR_ITS ---
Examination: AP abdomen single view Technique one AP portable upright abdomen single view Exam date and time: The 2023 1756 hours INDICATIONS: Post orogastric tube placement FINDINGS: Orogastric tube in the stomach satisfactory position Air distended small bowel loops No free air IMPRESSION: Orogastric tube in the stomach satisfactory position
[2024-04-13] MEDS: INSULIN LISPRO (AdmeLOG) 1 UNIT/0.01 ML UNIT SC (23:10)
[2024-04-14] VITALS (19 sets, daily range): BP systolic 120–171; BP diastolic 65–98; PULSE 100–124; RESP 12–20; TEMP 36–37.7; O2SAT 95–97; BMI 13.0
--- NOTE | 2024-04-14 | XR_ITS ---
Examination: Abdomen AP single view Technique: AP portable supine abdomen, single view Exam date and time: April 14, 20242003 hrs. Indications: Abdominal pain and distention this week, 7 hour delayed film post small bowel series today Findings: Contrast remains in markedly distended jejunal small bowel loops Impression: High-grade mechanical small bowel obstruction
--- NOTE | 2024-04-14 | XR_ITS ---
Examination: Abdomen AP single view Technique: AP portable supine abdomen, single view Exam date and time: April 14, 2024 at 1110 hrs. Indications: Abdominal pain this week, distended small bowel loops on abdomen films today, 10 hour delayed film post small bowel series Findings: Contrast is diluted in distended proximal small bowel loops Impression: Small bowel obstruction pattern
--- NOTE | 2024-04-14 | XR_ITS ---
Examination: Abdomen AP single view Technique: AP portable supine abdomen, single view Exam date and time: April 14, 2024 1754 hrs. Indications: Abdominal pain and distention today, 5 hour delayed film post small bowel series today Findings: Contrast distended jejunal loops measuring up to 8 cm in dimension Impression: High-grade mechanical small bowel obstruction. Recommend follow-up abdomen films 7:00 p.m., 9:00 PM, 11:00 PM
--- NOTE | 2024-04-14 | XR_ITS ---
Examination: Abdomen AP single view Technique: AP portable supine abdomen, single view Exam date and time: April 14, 2024 1541 hours INDICATIONS: 3 hour delayed film post small bowel series today FINDINGS: Contrast in prominently distended jejunal loops, measuring up to 8 cm IMPRESSION: Small bowel obstruction pattern Additional delayed films will be obtained
[2024-04-14] MEDS: HEPARIN SOD INJ 5000 UNIT/ML VIAL SC ×3 (05:28→21:28)
[2024-04-14] MEDS: INSULIN LISPRO (AdmeLOG) 1 UNIT/0.01 ML UNIT SC ×2 (05:29→17:44)
[2024-04-14 05:39] LABS: Basophils # (Auto) 0.1 Thou/mm3 (0.0-0.2); Basophils % (Auto) 0 % (0-2.5); Eosinophils # (Auto) 0.1 Thou/mm3 (0.0-0.5); Eosinophils % (Auto) 1 % (0-10); Hematocrit 29.2 % (41.0-53.0); Hemoglobin 9.3 g/dL (13.5-16.0); Immature Granulocytes % (Auto) 1 % (0-0); Immature Granulocytes Auto 0.09 Thou/mm3 (0.00-0.00); Lymphocytes # (Auto) 0.9 Thou/mm3 (1.0-4.8); Lymphocytes % (Auto) 6 % (10-50); Mean Corpuscular HGB Conc 31.8 g/dl (31.0-37.0); Mean Corpuscular Hemoglobin 31.7 pg (25.0-35.0); Mean Corpuscular Volume 100 fL (80-100); Monocytes # (Auto) 1.1 Thou/mm3 (0.0-0.8); Monocytes % (Auto) 8 % (0-12); Neutrophils # (Auto) 11.8 Thou/mm3 (1.8-7.7); Neutrophils % (Auto) 84 % (37-80); Nucleated Red Blood Cell % 0 /100 WBC (0); Platelet Count 305 Thou/mm3 (140-440); RDW Standard Deviation 50.9 fL (35.1-43.9); Red Blood Count 2.93 Miln/mm3 (4.50-5.90)
[2024-04-14 06:13] LABS: Albumin, Serum 4.1 gm/dL (3.5-5.0); Anion Gap 14 (7-16); BUN/Creatinine Ratio 7 Ratio (12-20); Blood Urea Nitrogen 47 mg/dL (9-23); Calcium 9.4 mg/dL (8.3-10.6); Calcium (Corrected) 9.4 mg/dL (8.5-10.1); Carbon Dioxide 23.6 mMol/L (20.0-31.0); Chloride 97 mMol/L (98-107); Creatinine (Component) 6.9 mg/dL (0.6-1.3); Estimated Creatinine Clearance 11.3 mL/min (>60); Glucose 208 mg/dL (74-106); Osmolality,Calculated 288 (275-295); Phosphorous 4.9 mg/dL (2.4-5.1); Potassium 5.1 mMol/L (3.4-5.1); Sodium 135 mMol/L (136-145); eGFR 9 See Note
--- NOTE | 2024-04-14 07:34 | XR_ITS ---
Examination: Small bowel series with KUB Fluoroscopy 8 spot fluoroscopic films of the stomach Exam date and time: April 14, 2024 1244 hours INDICATIONS: MRI abdomen April 13, 2024 small bowel obstruction pattern TECHNIQUE AND FINDINGS: Patient received 120 cc Gastrografin under fluoroscopic guidance Contrast in the stomach with no reflex Abdomen film 15 minute delayed shows contrast remaining in the stomach and multiple air distended small bowel loops IMPRESSION: Small bowel obstruction pattern, multiple additional delayed films will be obtained
--- NOTE | 2024-04-14 08:42 | PD.RESPRO ---
Documentation for date of: 04/14/24 Subjective Subjective Interval history: 53 y/o M with PMHx significant for diabetes mellitus, hypertension, diabetic/hypertensive nephrosclerosis, ESRD on dialysis M/W/F, and and CVA w/right sided residual deficits presented to the ED from longterm facility for chief complaint of abdominal pain x 3 days. Patient endorses that the pain was diffuse and generalized throughout his abdomen. He rated it as an 8 out of 10 in severity diffuse pain. The pain was not associated with food. Patient endorses that he did not any eat anything out of the ordinary. He also endorses that he has not had any urine for the past 3 days and he has not produced stool over the past 5 days. Patient denies headache, fever, chills, chest pain, palpitation, shortness of breath, dizziness, nausea, vomiting, or diarrhea. CT A/P showed acute appendicitis with localized rupture. Patient was admitted for management of sepsis secondary to ruptured acute appendicitis. In ED labs significant for bicarb 30.3, BUN 60, creatinine 6.6, eGFR 9, procalcitonin 21.8. Patient given 1 L IV bolus, vancomycin and Zosyn. Patient underwent laparoscopic appendectomy which revealed diffuse peritonitis, patient underwent abdominal washout. Procedures well-tolerated. Patient had some episodes of hypotension, was transferred to telemetry for further monitoring. Nephrology consulted for ESRD requiring dialysis M// schedule. Patient seen and examined at bedside. Patient appears mildly uncomfortable, mild abdominal tenderness. Patient complains of persistent hiccups. Labs today showed potassium 5.6, BUN 70, creatinine 7.3, eGFR 8. Plan for dialysis today as per patient's regular schedule. 04/13: Patient seen and examined at bedside. Patient appears mildly uncomfortable, complains of constipation, discussed with primary team. Patient denies hiccups. Currently on diabetic clear liquid diet, tolerating well. BUN 42, creatinine 5.4, eGFR 12. Plan for dialysis tomorrow as per patient's regular schedule. 04/14: Patient seen and examined at bedside. Patient appears mildly comfortable. Patient was diagnosed with SBO on imaging by primary team, has NG tube placed with intermittent suction, received Gastrografin for small bowel follow-through. Plan for hemodialysis today as per patient's regular schedule. Exam Vital Signs Temp Pulse Resp BP Pulse Ox O2 Del Method O2 Flow Rate 97.9 F 103 H 12 148/79 H 97 Room Air 4 04/14/24 08:00 04/14/24 08:00 04/14/24 08:00 04/14/24 08:00 04/14/24 08:00 04/14/24 08:00 04/14/24 08:00 Narrative Exam PE: Gen: Well-developed and well-nourished. HEENT: NCAT, PERRLA, EOMI, MMM, anicteric conjunctivae. NG tube. CVS: normal S1 and S2. RRR. No M/R/G. Resp: CTA B/L. No rhonchi, rales, crackles or wheezing. Abd: soft, non-distended. Mild diffuse tenderness. Laparoscopic procedure incisions, clean, nonerythematous. MSK: Good ROM in LUE & LLE. No edema or rash. Neuro: CN II-XII grossly intact. Strength 5/5 in LUE & LLE. Alert and oriented x3. Right-sided paralysis secondary to previous stroke. Psych: appropriate mood and affect. Objective Labs 04/14/24 05:22 04/14/24 05:22 Labs: Laboratory Results - last 24 hr 04/14/24 05:22 WBC 14.0 H RBC 2.93 L Hgb 9.3 L Hct 29.2 L MCV 100 MCH 31.7 MCHC 31.8 RDW Std Deviation 50.9 H Plt Count 305 D Neut % (Auto) 84 H Lymph % (Auto) 6 L [place] % (Auto) 8 Eos % (Auto) 1 Baso % (Auto) 0 Neut # (Auto) 11.8 H Lymph # (Auto) 0.9 L [place] # (Auto) 1.1 H Eos # (Auto) 0.1 Baso # (Auto) 0.1 Immature Gran # (Auto) 0.09 H Absolute Nucleated RBC 0.00 Immature Gran % 1 H Nucleated RBC % 0 Sodium 135 L Potassium 5.1 Chloride 97 L Carbon Dioxide 23.6 Anion Gap 14 BUN 47 H Creatinine 6.9 H* D Estim Creat Clear Calc 11.3 L eGFR 9 L* BUN/Creatinine Ratio 7 L Glucose 208 H Calculated Osmolality 288 Calcium 9.4 Corrected Calcium 9.4 Phosphorus 4.9 Albumin 4.1 Quality Measures Quality Measures VTE prophylaxis Assessment & Plan Assessment Current Active Medications: Generic Name Dose Route Start Last Admin Trade Name Sabas PRN Reason Stop Dose Admin Acetaminophen 650 mg 04/11/24 15:42 Acetaminophen 325 Mg Tablet PO 05/11/24 15:23 Q6H PRN Fever >101.5 or pain 1-3 Aspirin 81 mg 04/12/24 09:00 04/13/24 09:22 Aspirin Ec 81 Mg Tabec PO 05/12/24 08:59 81 mg QDAY OVI Administration Atorvastatin Calcium 80 mg 04/12/24 21:00 04/13/24 21:16 Atorvastatin Calcium 20 Mg Tablet PO 05/12/24 20:59 Not Given HS OVI Calcium Acetate 667 mg 04/12/24 08:00 04/13/24 18:30 Calcium Acetate 667 Mg Tablet PO 05/12/24 07:59 Not Given TIDWM OVI Chlorpromazine HCl 25 mg 04/12/24 09:00 04/14/24 05:20 Chlorpromazine 25 Mg Tablet PO 05/12/24 08:59 Not Given TID OVI Dextrose 25 ml 04/11/24 15:48 Dextrose 50%-Water Inj 50 Ml Syringe IV 05/11/24 15:47 Q15MIN PRN BG 50-70 responsive npo pt Dextrose 50 ml 04/11/24 15:48 Dextrose 50%-Water Inj 50 Ml Syringe IV 05/11/24 15:47 Q15MIN PRN BG <50 OR BG <70 & pt unresponsive Docusate Sodium 100 mg 04/13/24 09:15 04/13/24 21:16 Docusate Sod 100 Mg Capsule PO 05/13/24 09:14 Not Given BID [facility] Protocol Epoetin Louis 10,000 unit 04/14/24 10:00 Epoetin Louis-Epbx Inj 10,000 Unit/Ml Vial (Esrd) SC 04/14/24 10:01 X1 ONE Glucagon 1 mg 04/11/24 15:48 Glucagon Inj 1 Mg Vial IM Q15MIN PRN BG <70, and no IV access Heparin Sodium (Porcine) 5,000 unit 04/12/24 14:00 04/14/24 05:28 Heparin Sod Inj 5000 Unit/Ml Vial SC 04/26/24 13:59 5,000 unit Q8HR OVI Administration Hydromorphone HCl 1 mg 04/11/24 15:39 04/13/24 19:42 Hydromorphone Inj 2 Mg/Ml Vial IVP 04/16/24 15:38 1 mg Q4HR PRN Administration Pain 7-10 Piperacillin/Tazobactam/Dextrose 50 mls @ 12.5 mls/hr 04/11/24 21:00 04/14/24 01:16 Zosyn IV 04/18/24 20:59 Infused Q12HR OVI Infusion Albumin Human 25 gm in 100 mls @ 100 mls/min 04/12/24 09:24 04/12/24 13:53 Albuminar-25 Ivpb IV 100 mls/min PRN PRN Administration DIALYSIS Insulin Glargine 5 unit 04/13/24 09:00 04/13/24 09:13 Insulin Glargine (Lantus) 5 Unit/0.05 Ml (Per 5 Units) SC 05/13/24 08:59 Not Given QDAY OVI Insulin Human Lispro 0 unit 04/14/24 00:00 04/14/24 05:29 Insulin Lispro (Admelog) 1 Unit/0.01 Ml Unit SC 05/14/24 00:00 2 unit Q6HR OVI Administration Protocol Ondansetron HCl 4 mg 04/11/24 15:24 Ondansetron Inj 2 Mg/Ml Inj 2 Ml IV 05/11/24 15:23 Q4HR PRN NAUSEA OR VOMITING Protocol Pantoprazole Sodium 40 mg 04/11/24 20:00 04/13/24 09:22 Pantoprazole Inj 40 Mg Vial IVP 05/11/24 19:59 40 mg QDAY OVI Administration Sennosides 1 tab 04/13/24 03:47 04/13/24 04:04 Senna Tablet PO 05/13/24 03:46 1 tab QDAY PRN Administration constipation Protocol Plan 53 y/o M with PMHx significant for diabetes mellitus, hypertension, diabetic/hypertensive nephrosclerosis, ESRD on dialysis M/W/F, and and CVA w/right sided residual deficits presented to the ED from longterm facility for chief complaint of abdominal pain x 3 days, admitted for ruptured appendicitis. #End-stage renal disease on dialysis M/W/F Patient developed ESRD secondary to diabetic nephrosclerosis. On admission labs showed BUN 60, creatinine 6.6, eGFR 9. Plan: -Dialysis as per patient's regular schedule -today -Monitor daily labs -Avoid nephrotoxic agents -Renally dose medications #Hiccups -resolved Patient complaining of hiccups, likely secondary to laparoscopic procedure. Resolved with treatment. -Thorazine 25 mg p.o. 3 times daily #Small bowel obstruction #Sepsis #Ruptured acute appendicitis #Healthcare acquired pneumonia #Diabetes mellitus #Hypertension #Hypertensive nephrosclerosis #CVA (2021) Management as per primary team. DVT prophylaxis: Heparin GI prophylaxis: Protonix Diet: Diabetic clear liquid Lines: Peripheral IV Code status: Full code Thank you for allowing participate in the care of this patient. Plan of care discussed with attending Dr. Nunez. Reilly Hill MD PGY-1 Attending Provider Attestation/Addendum Patient seen and examined with resident physician Dr. Hill. Note reviewed, agree with findings and recommendations. Patient currently seen on dialysis. Tolerating dialysis without any problems. Hemodialysis for 3 hours, 2K, ultrafiltration 0 L, Epogen 6000, no heparin ordered. Plan of care discussed with the dialysis nurse. Please see dialysis flowsheet for further details. Patient with bowel obstruction. Status post appendectomy for ruptured appendix.
--- NOTE | 2024-04-14 08:44 | PC.NURSE ---
Dialysis Note--Pt trey, on-going round of Hiccups, will inform PCN,s believe treated with Thorazine, talk with PCN
--- NOTE | 2024-04-14 09:15 | PC.SS ---
[facility] and [facility]. PT notes are pending. Pt will return to [facility].
[2024-04-14] MEDS: EPOETIN ALFA-EPBX INJ 10,000 UNIT/ML VIAL (ESRD) 10000 UNIT SC (11:35)
--- NOTE | 2024-04-14 11:51 | PD.SURPROG ---
Documentation for date of: 04/14/24 Subjective Subjective Narrative: Patient is seen and examined in dialysis unit. He states that he is feeling better, denies nausea or vomiting Exam Vital Signs Temp Pulse Resp BP Pulse Ox O2 Del Method O2 Flow Rate 98.6 F 103 H 18 141/76 H 95 Room Air 4 04/14/24 11:33 04/14/24 11:30 04/14/24 11:33 04/14/24 11:30 04/14/24 11:33 04/14/24 08:00 04/14/24 08:00 Constitutional Constitutional: no acute distress Routine Abdominal Exam Comments: Abdomen is soft and nondistended. Incisions are clean, dry and intact. He has hypoactive bowel sounds Assessment & Plan Assessment Additional comments: Postop day #3 status post laparoscopic appendectomy for perforated appendicitis with generalized peritonitis Plan Continue IV antibiotics. He is unlikely to have small bowel obstruction, most likely has postoperative ileus. Recommend 40 mL of lactulose through the NG tube and keep NG tube clamped for 2 hours. If no nausea or vomiting may DC NG tube and start patient on liquid diet Procedures Procedures Laparoscopic appendectomy with abdominal washout
--- NOTE | 2024-04-14 12:11 | PC.NURSE ---
Dialysis completed for 3 hrs, tolerated well. Pt beninese speaking awake, A/O x4, no complaint of pain. Respiration even and unlabored O2 sat 95% room air. No fluid removal per MD. Post tx BP 161/84, HR 105, Temp 98.6. Pt back in room 265. Call light within reached. Pressure dressing on right upper arm AV fistula clean/dry/intact. No bleeding. Pressure dressing to be remove around 1400. Patient and RN aware. Report given to Hortensia HOLLIDAY
--- NOTE | 2024-04-14 12:40 | ESPR_ITS ---
<Statement entered by Brayden Rosas MD - 04/14/24 16:52> Senior Resident Attestation: I supervised/discussed management plan with resident physician Dr. Barrett, and was involved in the care of this patient. I personally saw and examined the patient and discussed the assessment and plan with the entire medicine team, including my attending. I agree with the assessment and plan as documented. Patient's care was discussed with attending physician, Dr. Nela Rosas MD PGY-3 Documentation for date of: 04/14/24 Subjective Subjective Interval history: Patient seen at bedside, currently receiving dialysis Patient had about 250 mL suction from NG tube overnight Patient has about 200 mL greenish fluid removed via NG currently Will follow-up with general surgery on further recommendations. Exam Vital Signs Temp Pulse Resp BP Pulse Ox O2 Del Method O2 Flow Rate 98.6 F 109 H 18 161/84 H 95 Room Air 4 04/14/24 11:55 04/14/24 12:00 04/14/24 11:55 04/14/24 11:55 04/14/24 11:55 04/14/24 08:00 04/14/24 08:00 Narrative Exam Constitutional: Chinese-speaking, bed bound, middle-age male, slurred speech. HEENT: NCAT, EOMI, reactive round pupils b/l, moist mucous membranes, on room air Lung: CTAB, no wheezing, no rhonchi, no crackles. Heart: Regular S1S2, no murmurs, gallops, or rubs Abdomen: Soft, tenderness in all 4 quadrants, left lower quadrant increased tenderness, [place] noted at midline, hypoactivebowel sounds present throughout. Extremities: No cyanosis, no edema of b/l legs, residual deficits of right upper and lower extremities s/p CVA. AV fistula on right arm. Neurologic: Motor deficits noted on right UE and LE, AOx3, appropriate affect Skin: Warm, dry, no lesions or rashes noted Objective Labs 04/14/24 05:22 04/14/24 05:22 Labs: Laboratory Results - last 24 hr 04/14/24 05:22 WBC 14.0 H RBC 2.93 L Hgb 9.3 L Hct 29.2 L MCV 100 MCH 31.7 MCHC 31.8 RDW Std Deviation 50.9 H Plt Count 305 D Neut % (Auto) 84 H Lymph % (Auto) 6 L [place] % (Auto) 8 Eos % (Auto) 1 Baso % (Auto) 0 Neut # (Auto) 11.8 H Lymph # (Auto) 0.9 L [place] # (Auto) 1.1 H Eos # (Auto) 0.1 Baso # (Auto) 0.1 Immature Gran # (Auto) 0.09 H Absolute Nucleated RBC 0.00 Immature Gran % 1 H Nucleated RBC % 0 Sodium 135 L Potassium 5.1 Chloride 97 L Carbon Dioxide 23.6 Anion Gap 14 BUN 47 H Creatinine 6.9 H* D Estim Creat Clear Calc 11.3 L eGFR 9 L* BUN/Creatinine Ratio 7 L Glucose 208 H Calculated Osmolality 288 Calcium 9.4 Corrected Calcium 9.4 Phosphorus 4.9 Albumin 4.1 Quality Measures Quality Measures VTE prophylaxis Assessment & Plan Assessment Current Active Medications: Generic Name Dose Route Start Last Admin Trade Name Freq PRN Reason Stop Dose Admin Acetaminophen 650 mg 04/11/24 15:42 Acetaminophen 325 Mg Tablet PO 05/11/24 15:23 Q6H PRN Fever >101.5 or pain 1-3 Aspirin 81 mg 04/12/24 09:00 04/13/24 09:22 Aspirin Ec 81 Mg Tabec PO 05/12/24 08:59 81 mg QDAY OVI Administration Atorvastatin Calcium 80 mg 04/12/24 21:00 04/13/24 21:16 Atorvastatin Calcium 20 Mg Tablet PO 05/12/24 20:59 Not Given HS OVI Calcium Acetate 667 mg 04/12/24 08:00 04/13/24 18:30 Calcium Acetate 667 Mg Tablet PO 05/12/24 07:59 Not Given TIDWM OVI Chlorpromazine HCl 25 mg 04/12/24 09:00 04/14/24 05:20 Chlorpromazine 25 Mg Tablet PO 05/12/24 08:59 Not Given TID OVI Dextrose 25 ml 04/11/24 15:48 Dextrose 50%-Water Inj 50 Ml Syringe IV 05/11/24 15:47 Q15MIN PRN BG 50-70 responsive npo pt Dextrose 50 ml 04/11/24 15:48 Dextrose 50%-Water Inj 50 Ml Syringe IV 05/11/24 15:47 Q15MIN PRN BG <50 OR BG <70 & pt unresponsive Docusate Sodium 100 mg 04/13/24 09:15 04/13/24 21:16 Docusate Sod 100 Mg Capsule PO 05/13/24 09:14 Not Given BID [facility] Protocol Glucagon 1 mg 04/11/24 15:48 Glucagon Inj 1 Mg Vial IM Q15MIN PRN BG <70, and no IV access Heparin Sodium (Porcine) 5,000 unit 04/12/24 14:00 04/14/24 05:28 Heparin Sod Inj 5000 Unit/Ml Vial SC 04/26/24 13:59 5,000 unit Q8HR OVI Administration Hydromorphone HCl 1 mg 04/11/24 15:39 04/13/24 19:42 Hydromorphone Inj 2 Mg/Ml Vial IVP 04/16/24 15:38 1 mg Q4HR PRN Administration Pain 7-10 Piperacillin/Tazobactam/Dextrose 50 mls @ 12.5 mls/hr 04/11/24 21:00 04/14/24 01:16 Zosyn IV 04/18/24 20:59 Infused Q12HR [facility] Infusion Albumin Human 25 gm in 100 mls @ 100 mls/min 04/12/24 09:24 04/12/24 13:53 Albuminar-25 Ivpb IV 100 mls/min PRN PRN Administration DIALYSIS Insulin Glargine 5 unit 04/13/24 09:00 04/13/24 09:13 Insulin Glargine (Lantus) 5 Unit/0.05 Ml (Per 5 Units) SC 05/13/24 08:59 Not Given QDAY [facility] Insulin Human Lispro 0 unit 04/14/24 00:00 04/14/24 05:29 Insulin Lispro (Admelog) 1 Unit/0.01 Ml Unit SC 05/14/24 00:00 2 unit Q6HR OVI Administration Protocol Ondansetron HCl 4 mg 04/11/24 15:24 Ondansetron Inj 2 Mg/Ml Inj 2 Ml IV 05/11/24 15:23 Q4HR PRN NAUSEA OR VOMITING Protocol Pantoprazole Sodium 40 mg 04/11/24 20:00 04/13/24 09:22 Pantoprazole Inj 40 Mg Vial IVP 05/11/24 19:59 40 mg QDAY [facility] Administration Sennosides 1 tab 04/13/24 03:47 04/13/24 04:04 Senna Tablet PO 05/13/24 03:46 1 tab QDAY PRN Administration constipation Protocol Plan 53-year-old male patient with diabetes mellitus, hypertension, diabetic/hypertensive nephrosclerosis, end-stage renal disease on dialysis M/W/F, and CVA (acute infarcts left basal ganglia and acute infarct left caudate nucleus on 04/2022) w/right sided residual deficits presented to the ED of [facility] from halfway facility for chief complaint of abdominal pain x 3 days. Patient was septic with tachypneic, tachycardic, with elevated WBC on ED presentation. Found to have ruptured acute appendicitis on CT abdomen and pelvis. He was given 2 L IV fluid per sepsis protocol in the ED, Zozyn and vancomycin. Lactic acid 1.3, LDH 150. Procalcitonin 21.80. Patient was admitted for management of sepsis secondary to ruptured acute appendicitis, requiring laparoscopic appendectomy with no surgical complications. #Small bowel obstruction, new onset 04/13/24 #Sepsis, stable secondary to #Ruptured acute appendicitis, resolved #Status post laparoscopic appendectomy, postop day 2 #Peritonitis #Leukocytosis Patient presented with severe abdominal pain worsening over 3 nights, found to have ruptured appendicitis on imaging. He was septic on presentation secondary to ruptured appendicitis, now s/p appendectomy Peritonitis is noted in setting of constipation and severe abdominal tenderness. KUB showed new finding of SBO. CT ab/pelvis: Bibasilar pneumonia, primary hepatocellular disease. Recommend hepatobiliary sonography to exclude acute calculus cholecystitis. Acute appendicitis with localized rupture and probable peritonitis, no focal pelvic abscess. HIDA showed: gallbladder sludge, no gallstones, gallbladder wall is thickened, measured up to 4.5 mm, common bile duct 4 mm. MRCP : Distended gallbladder, negative for cholecystitis; hepatosplenomegaly. Patient has about 450 cc worth of fluid removed through NG tube suctioning Plan: -IV Zosyn 3.375 every 12 hours (04/11- -IV Zofran every 4 hours as needed for Nausea/vomitting -IV Dilaudid every 4 hours as needed -Consulted Dr. Starks; conducted emergent laparoscopic appendectomy on 04/11/24 -NG to with low intermittent suction -Small bowel series follow-up -NPO in setting of new onset SBO -Follow-up CBC and CMP in AM #End-stage renal disease on dialysis M/W/F Patient developing ESRD secondary to diabetic nephrosclerosis. AV fistula present in right arm. BUN 42, 5.4, GFR 12. -Consulted nephrology; dialysis to be continued on 04/14/2024 -dialysis per schedule -renal panel in am -Avoid nephrotoxic agents -Renally dose medications #Healthcare acquired pneumonia, unlikely Questionable pneumonia as patient continues to deny any fever, chills, shortness of breath, cough or mucus. No immediate sick contacts or recent travel. Imaging reveals pneumonia in the right upper lobe. CT ab/pelvis: Bibasilar pneumonia. Chest x-ray: Suspicious for right upper lobe pneumonia. -Antibiotics for appendicitis provides coverage for pneumonia #Diabetes mellitus (A1c 5.6) Chronic, uncontrolled Patient has a history of diabetes mellitus. Glucose stable less than 180. -Sliding scale insulin -Bedside glucose checks -Hypoglycemic protocol -glargine 5 units SC #Hypertension #Hypertensive nephrosclerosis Patient has a history of hypertension. Patient's blood pressure remains soft. -Hold antihypertensives at this moment -Restart Coreg 6.25 mg twice daily if blood pressure systolic> 140, diastolic> 80 #CVA (2021) Acute infarcts of left basal ganglia and acute infarct left caudate nucleus on 04/2022. Patient has residual paralysis of right upper and lower extremities. Slurred speech noted. -aspirin 81mg daily and atorvastatin 40mg daily. #Acute cholecystitis, ruled out Health maintenance: DVT prophylaxis: Heparin GI prophylaxis: Pantoprazole Diet: NPO Code status: Full Case discussed with Attending Dr. Rondon and Dr. Rosas PGY3. Vincent Barrett PGY1
[2024-04-14] MEDS: PANTOPRAZOLE INJ 40 MG VIAL IVP (13:35)
[2024-04-14] MEDS: ASPIRIN EC 81 MG TABEC PO (13:35)
[2024-04-14] MEDS: DOCUSATE SOD 100 MG CAPSULE PO (13:35)
[2024-04-14] MEDS: PIPER/TAZO 3.375 GM 50 ML IV ×2 (13:36→21:28)
[2024-04-14] MEDS: CALCIUM ACETATE 667 MG TABLET PO ×2 (13:37→17:39)
[2024-04-14] MEDS: CHLORPROMAZINE 25 MG PO (13:44)
--- NOTE | 2024-04-14 14:00 | XR_ITS ---
Examination: Abdomen AP single view Technique: AP portable supine abdomen, single view Exam date and time: April 14, 2024 1505 hours INDICATIONS: One hour 15 minute delayed film post small bowel series FINDINGS: Contrast in the duodenum Prominently air distended small bowel loops IMPRESSION: Small bowel obstruction
[2024-04-15] VITALS (8 sets, daily range): BP systolic 126–168; BP diastolic 74–87; PULSE 89–110; RESP 14–18; TEMP 36.1–36.9; O2SAT 95–98; BMI 22.6
--- NOTE | 2024-04-15 02:15 | XR_ITS ---
Examination: Abdomen AP single view Technique: AP portable supine abdomen, single view Exam date and time: April 15, 2024 0236 hrs. Indications: Abdominal pain and distention this week, markedly dilated small bowel loops consistent with small bowel obstruction on abdomen film April 14, 2024, 13 hour delayed film post small bowel series today. Findings: Contrast in markedly distended proximal small bowel loops measuring up to 6.7 cm in dimension Impression: High-grade mechanical small bowel obstruction
--- NOTE | 2024-04-15 05:00 | XR_ITS ---
Examination: Abdomen AP single view Technique: AP portable supine abdomen, single view Exam date and time: April 15, 2024 0542 hrs. Indications: Abdominal pain and distention this week, small bowel obstruction pattern on abdomen study April 14, 2024, 16 hour delayed film post small bowel series Findings: High-grade mechanical small bowel obstruction, contrast in distended proximal small bowel loops, no contrast in the colon at 16 hours Impression: High-grade mechanical small bowel obstruction As clinically warranted, consider follow-up abdomen film at 11:00 AM
[2024-04-15] MEDS: HEPARIN SOD INJ 5000 UNIT/ML VIAL SC ×3 (05:11→21:13)
[2024-04-15 06:09] LABS: Basophils # (Auto) 0.1 Thou/mm3 (0.0-0.2); Basophils % (Auto) 1 % (0-2.5); Eosinophils # (Auto) 0.2 Thou/mm3 (0.0-0.5); Eosinophils % (Auto) 2 % (0-10); Hematocrit 28.4 % (41.0-53.0); Hemoglobin 8.9 g/dL (13.5-16.0); Immature Granulocytes % (Auto) 1 % (0-0); Immature Granulocytes Auto 0.09 Thou/mm3 (0.00-0.00); Lymphocytes # (Auto) 1.1 Thou/mm3 (1.0-4.8); Lymphocytes % (Auto) 8 % (10-50); Mean Corpuscular HGB Conc 31.3 g/dl (31.0-37.0); Mean Corpuscular Hemoglobin 31.6 pg (25.0-35.0); Mean Corpuscular Volume 101 fL (80-100); Monocytes # (Auto) 1.2 Thou/mm3 (0.0-0.8); Monocytes % (Auto) 10 % (0-12); Neutrophils # (Auto) 10.4 Thou/mm3 (1.8-7.7); Neutrophils % (Auto) 80 % (37-80); Nucleated Red Blood Cell % 0 /100 WBC (0); Platelet Count 375 Thou/mm3 (140-440); RDW Standard Deviation 50.2 fL (35.1-43.9); Red Blood Count 2.82 Miln/mm3 (4.50-5.90); White Blood Count 13.1 Thou/mm3 (3.8-10.6)
[2024-04-15 06:34] LABS: Albumin, Serum 4.2 gm/dL (3.5-5.0); Anion Gap 14 (7-16); BUN/Creatinine Ratio 7 Ratio (12-20); Blood Urea Nitrogen 42 mg/dL (9-23); Calcium 9.7 mg/dL (8.3-10.6); Calcium (Corrected) 9.7 mg/dL (8.5-10.1); Carbon Dioxide 25.5 mMol/L (20.0-31.0); Chloride 97 mMol/L (98-107); Creatinine (Component) 5.9 mg/dL (0.6-1.3); Estimated Creatinine Clearance 13.2 mL/min (>60); Glucose 203 mg/dL (74-106); Osmolality,Calculated 288 (275-295); Phosphorous 4.6 mg/dL (2.4-5.1); Sodium 136 mMol/L (136-145); eGFR 11 See Note
--- NOTE | 2024-04-15 07:30 | XR_ITS ---
Examination: Abdomen AP single view Technique: AP portable supine abdomen, single view Exam date and time: April 15, 2024 0749 hrs. Comparison small bowel series April 14, 2024 12:44 PM Indications: Abdominal pain and distention this week, air distended small bowel loops small bowel obstruction pattern on abdomen films yesterday, 18 hour delayed film post small bowel series yesterday Findings: Contrast remains in distended small bowel loops No contrast in the colon Impression: Small bowel obstruction pattern
[2024-04-15] MEDS: PANTOPRAZOLE INJ 40 MG VIAL IVP (08:30)
[2024-04-15] MEDS: LACTULOSE SYRUP 20 GM/30 ML UDC 40 GM NG (08:30)
[2024-04-15] MEDS: PIPER/TAZO 3.375 GM 50 ML IV ×2 (08:30→21:13)
--- NOTE | 2024-04-15 11:33 | PD.RESPRO ---
Documentation for date of: 04/15/24 Subjective Subjective Interval history: 53 y/o M with PMHx significant for diabetes mellitus, hypertension, diabetic/hypertensive nephrosclerosis, ESRD on dialysis M/W/F, and and CVA w/right sided residual deficits presented to the ED from residential facility for chief complaint of abdominal pain x 3 days. Patient endorses that the pain was diffuse and generalized throughout his abdomen. He rated it as an 8 out of 10 in severity diffuse pain. The pain was not associated with food. Patient endorses that he did not any eat anything out of the ordinary. He also endorses that he has not had any urine for the past 3 days and he has not produced stool over the past 5 days. Patient denies headache, fever, chills, chest pain, palpitation, shortness of breath, dizziness, nausea, vomiting, or diarrhea. CT A/P showed acute appendicitis with localized rupture. Patient was admitted for management of sepsis secondary to ruptured acute appendicitis. In ED labs significant for bicarb 30.3, BUN 60, creatinine 6.6, eGFR 9, procalcitonin 21.8. Patient given 1 L IV bolus, vancomycin and Zosyn. Patient underwent laparoscopic appendectomy which revealed diffuse peritonitis, patient underwent abdominal washout. Procedures well-tolerated. Patient had some episodes of hypotension, was transferred to telemetry for further monitoring. Nephrology consulted for ESRD requiring dialysis M// schedule. Patient seen and examined at bedside. Patient appears mildly uncomfortable, mild abdominal tenderness. Patient complains of persistent hiccups. Labs today showed potassium 5.6, BUN 70, creatinine 7.3, eGFR 8. Plan for dialysis today as per patient's regular schedule. 04/13: Patient seen and examined at bedside. Patient appears mildly uncomfortable, complains of constipation, discussed with primary team. Patient denies hiccups. Currently on diabetic clear liquid diet, tolerating well. BUN 42, creatinine 5.4, eGFR 12. Plan for dialysis tomorrow as per patient's regular schedule. 04/14: Patient seen and examined at bedside. Patient appears mildly comfortable. Patient was diagnosed with SBO on imaging by primary team, has NG tube placed with intermittent suction, received Gastrografin for small bowel follow-through. Plan for hemodialysis today as per patient's regular schedule. 04/15: Patient seen and examined at bedside. Patient appeared more comfortable than yesterday, reports having small bowel movement overnight. Patient still has NG tube. BUN 42, creatinine 5.9, EGFR 11. No plan for dialysis today, will keep patient's regular schedule. Exam Vital Signs Temp Pulse Resp BP Pulse Ox O2 Del Method O2 Flow Rate 98.4 F 101 H 16 157/83 H 97 Room Air 4 04/15/24 08:00 04/15/24 08:00 04/15/24 08:00 04/15/24 08:00 04/15/24 08:00 04/15/24 08:00 04/15/24 00:00 Narrative Exam PE: Gen: Well-developed and well-nourished. HEENT: NCAT, PERRLA, EOMI, MMM, anicteric conjunctivae. NG tube. CVS: normal S1 and S2. RRR. No M/R/G. Resp: CTA B/L. No rhonchi, rales, crackles or wheezing. Abd: soft, non-distended. Bowel sounds present. Laparoscopic procedure incisions, clean, nonerythematous. MSK: Good ROM in LUE & LLE. No edema or rash. Neuro: CN II-XII grossly intact. Strength 5/5 in LUE & LLE. Alert and oriented x3. Right-sided paralysis secondary to previous stroke. Psych: appropriate mood and affect. Objective Labs 04/15/24 05:10 04/15/24 05:10 Labs: Laboratory Results - last 24 hr 04/15/24 05:10 WBC 13.1 H RBC 2.82 L Hgb 8.9 L Hct 28.4 L MCV 101 H MCH 31.6 MCHC 31.3 RDW Std Deviation 50.2 H Plt Count 375 D Neut % (Auto) 80 Lymph % (Auto) 8 L [place] % (Auto) 10 Eos % (Auto) 2 Baso % (Auto) 1 Neut # (Auto) 10.4 H Lymph # (Auto) 1.1 [place] # (Auto) 1.2 H Eos # (Auto) 0.2 Baso # (Auto) 0.1 Immature Gran # (Auto) 0.09 H Absolute Nucleated RBC 0.00 Immature Gran % 1 H Nucleated RBC % 0 Sodium 136 Potassium 4.0 D Chloride 97 L Carbon Dioxide 25.5 Anion Gap 14 BUN 42 H Creatinine 5.9 H* D Estim Creat Clear Calc 13.2 L eGFR 11 L* BUN/Creatinine Ratio 7 L Glucose 203 H Calculated Osmolality 288 Calcium 9.7 Corrected Calcium 9.7 Phosphorus 4.6 Albumin 4.2 Quality Measures Quality Measures VTE prophylaxis Assessment & Plan Assessment Current Active Medications: Generic Name Dose Route Start Last Admin Trade Name Freq PRN Reason Stop Dose Admin Acetaminophen 650 mg 04/11/24 15:42 Acetaminophen 325 Mg Tablet PO 05/11/24 15:23 Q6H PRN Fever >101.5 or pain 1-3 Aspirin 81 mg 04/12/24 09:00 04/15/24 08:14 Aspirin Ec 81 Mg Tabec PO 05/12/24 08:59 Not Given QDAY [facility] Atorvastatin Calcium 80 mg 04/12/24 21:00 04/14/24 21:25 Atorvastatin Calcium 20 Mg Tablet PO 05/12/24 20:59 Not Given HS [facility] Calcium Acetate 667 mg 04/12/24 08:00 04/15/24 08:14 Calcium Acetate 667 Mg Tablet PO 05/12/24 07:59 Not Given TIDWM [facility] Chlorpromazine HCl 25 mg 04/12/24 09:00 04/15/24 07:34 Chlorpromazine 25 Mg Tablet PO 05/12/24 08:59 Not Given TID [facility] Dextrose 25 ml 04/11/24 15:48 Dextrose 50%-Water Inj 50 Ml Syringe IV 05/11/24 15:47 Q15MIN PRN BG 50-70 responsive npo pt Dextrose 50 ml 04/11/24 15:48 Dextrose 50%-Water Inj 50 Ml Syringe IV 05/11/24 15:47 Q15MIN PRN BG <50 OR BG <70 & pt unresponsive Docusate Sodium 100 mg 04/13/24 09:15 04/15/24 08:14 Docusate Sod 100 Mg Capsule PO 05/13/24 09:14 Not Given BID [facility] Protocol Glucagon 1 mg 04/11/24 15:48 Glucagon Inj 1 Mg Vial IM Q15MIN PRN BG <70, and no IV access Heparin Sodium (Porcine) 5,000 unit 04/12/24 14:00 04/15/24 05:11 Heparin Sod Inj 5000 Unit/Ml Vial SC 04/26/24 13:59 5,000 unit Q8HR [facility] Administration Hydromorphone HCl 1 mg 04/11/24 15:39 04/13/24 19:42 Hydromorphone Inj 2 Mg/Ml Vial IVP 04/16/24 15:38 1 mg Q4HR PRN Administration Pain 7-10 Piperacillin/Tazobactam/Dextrose 50 mls @ 12.5 mls/hr 04/11/24 21:00 04/15/24 08:30 Zosyn IV 04/18/24 20:59 12.5 mls/hr Q12HR [facility] Administration Albumin Human 25 gm in 100 mls @ 100 mls/min 04/12/24 09:24 04/12/24 13:53 Albuminar-25 Ivpb IV 100 mls/min PRN PRN Administration DIALYSIS Insulin Glargine 5 unit 04/13/24 09:00 04/15/24 08:14 Insulin Glargine (Lantus) 5 Unit/0.05 Ml (Per 5 Units) SC 05/13/24 08:59 Not Given QDAY [facility] Insulin Human Lispro 0 unit 04/14/24 00:00 04/15/24 07:34 Insulin Lispro (Admelog) 1 Unit/0.01 Ml Unit SC 05/14/24 00:00 Not Given Q6HR [facility] Protocol Ondansetron HCl 4 mg 04/11/24 15:24 Ondansetron Inj 2 Mg/Ml Inj 2 Ml IV 05/11/24 15:23 Q4HR PRN NAUSEA OR VOMITING Protocol Pantoprazole Sodium 40 mg 04/11/24 20:00 04/15/24 08:30 Pantoprazole Inj 40 Mg Vial IVP 05/11/24 19:59 40 mg QDAY [facility] Administration Sennosides 1 tab 04/13/24 03:47 04/13/24 04:04 Senna Tablet PO 05/13/24 03:46 1 tab QDAY PRN Administration constipation Protocol Plan 53 y/o M with PMHx significant for diabetes mellitus, hypertension, diabetic/hypertensive nephrosclerosis, ESRD on dialysis M/W/F, and and CVA w/right sided residual deficits presented to the ED from residential facility for chief complaint of abdominal pain x 3 days, admitted for ruptured appendicitis. #End-stage renal disease on dialysis M/W/F Patient developed ESRD secondary to diabetic nephrosclerosis. On admission labs showed BUN 60, creatinine 6.6, eGFR 9. Plan: -Dialysis as per patient's regular schedule -Monitor daily labs -Avoid nephrotoxic agents -Renally dose medications #Hiccups -resolved Patient complaining of hiccups, likely secondary to laparoscopic procedure. Resolved with treatment. -Thorazine 25 mg p.o. 3 times daily #Small bowel obstruction -resolving #Sepsis #Ruptured acute appendicitis #Healthcare acquired pneumonia #Diabetes mellitus #Hypertension #Hypertensive nephrosclerosis #CVA (2021) Management as per primary team. DVT prophylaxis: Heparin GI prophylaxis: Protonix Diet: N.p.o. Lines: Peripheral IV, NGT Code status: Full code Thank you for allowing participate in the care of this patient. Plan of care discussed with attending Dr. Nunez. Reilly Hill MD PGY-1 Attending Provider Attestation/Addendum Patient seen and examined with resident physician Dr. Hill. Note reviewed, agree with findings and recommendations. Currently seen in telemetry. Son at bedside. He is able to pass some stool. Hopefully can advance her diet and DC NG tube. Dr Starks on the case. Next dialysis scheduled for Wednesday. Plan of care discussed with Dr. Rondon.
--- NOTE | 2024-04-15 12:14 | ESPR_ITS ---
<Statement entered by Brayden Rosas MD - 04/15/24 17:58> Senior Resident Attestation: I supervised/discussed management plan with resident physician Dr. Barrett, and was involved in the care of this patient. I personally saw and examined the patient and discussed the assessment and plan with the entire medicine team, including my attending. I agree with the assessment and plan as documented. Patient's care was discussed with attending physician, Dr. Nela Rosas MD PGY-3 Documentation for date of: 04/15/24 Subjective Subjective Interval history: Patient seen at bedside, currently receiving dialysis Patient had about 2200 mL suction from NG tube yesterday Patient complains of hard pellet-like stools. Will continue NG tube with low intermittent suctioning Patient will be given lactulose 40 g through NG tube per general surgery recommendations Small bowel series show small bowel obstruction pattern Exam Vital Signs Temp Pulse Resp BP Pulse Ox O2 Del Method O2 Flow Rate 98.4 F 101 H 16 157/83 H 97 Room Air 4 04/15/24 08:00 04/15/24 08:00 04/15/24 08:00 04/15/24 08:00 04/15/24 08:00 04/15/24 08:00 04/15/24 00:00 Narrative Exam Constitutional: Lithuanian-speaking, bed bound, middle-age male, slurred speech. HEENT: NCAT, EOMI, reactive round pupils b/l, moist mucous membranes, on room air Lung: CTAB, no wheezing, no rhonchi, no crackles. Heart: Regular S1S2, no murmurs, gallops, or rubs Abdomen: Soft, tenderness in all 4 quadrants, left lower quadrant increased tenderness, [place] noted at midline, hypoactivebowel sounds present throughout. Extremities: No cyanosis, no edema of b/l legs, residual deficits of right upper and lower extremities s/p CVA. AV fistula on right arm. Neurologic: Motor deficits noted on right UE and LE, AOx3, appropriate affect Skin: Warm, dry, no lesions or rashes noted Objective Labs 04/16/24 07:22 04/16/24 07:22 Labs: Laboratory Results - last 24 hr 04/15/24 05:10 WBC 13.1 H RBC 2.82 L Hgb 8.9 L Hct 28.4 L MCV 101 H MCH 31.6 MCHC 31.3 RDW Std Deviation 50.2 H Plt Count 375 D Neut % (Auto) 80 Lymph % (Auto) 8 L [place] % (Auto) 10 Eos % (Auto) 2 Baso % (Auto) 1 Neut # (Auto) 10.4 H Lymph # (Auto) 1.1 [place] # (Auto) 1.2 H Eos # (Auto) 0.2 Baso # (Auto) 0.1 Immature Gran # (Auto) 0.09 H Absolute Nucleated RBC 0.00 Immature Gran % 1 H Nucleated RBC % 0 Sodium 136 Potassium 4.0 D Chloride 97 L Carbon Dioxide 25.5 Anion Gap 14 BUN 42 H Creatinine 5.9 H* D Estim Creat Clear Calc 13.2 L eGFR 11 L* BUN/Creatinine Ratio 7 L Glucose 203 H Calculated Osmolality 288 Calcium 9.7 Corrected Calcium 9.7 Phosphorus 4.6 Albumin 4.2 Quality Measures Quality Measures VTE prophylaxis Assessment & Plan Assessment Current Active Medications: Generic Name Dose Route Start Last Admin Trade Name Freq PRN Reason Stop Dose Admin Acetaminophen 650 mg 04/11/24 15:42 Acetaminophen 325 Mg Tablet PO 05/11/24 15:23 Q6H PRN Fever >101.5 or pain 1-3 Aspirin 81 mg 04/12/24 09:00 04/15/24 08:14 Aspirin Ec 81 Mg Tabec PO 05/12/24 08:59 Not Given QDAY OVI Atorvastatin Calcium 80 mg 04/12/24 21:00 04/14/24 21:25 Atorvastatin Calcium 20 Mg Tablet PO 05/12/24 20:59 Not Given HS OVI Calcium Acetate 667 mg 04/12/24 08:00 04/15/24 12:08 Calcium Acetate 667 Mg Tablet PO 05/12/24 07:59 Not Given TIDWM OVI Chlorpromazine HCl 25 mg 04/12/24 09:00 04/15/24 07:34 Chlorpromazine 25 Mg Tablet PO 05/12/24 08:59 Not Given TID OVI Dextrose 25 ml 04/11/24 15:48 Dextrose 50%-Water Inj 50 Ml Syringe IV 05/11/24 15:47 Q15MIN PRN BG 50-70 responsive npo pt Dextrose 50 ml 04/11/24 15:48 Dextrose 50%-Water Inj 50 Ml Syringe IV 05/11/24 15:47 Q15MIN PRN BG <50 OR BG <70 & pt unresponsive Docusate Sodium 100 mg 04/13/24 09:15 04/15/24 08:14 Docusate Sod 100 Mg Capsule PO 05/13/24 09:14 Not Given BID [facility] Protocol Glucagon 1 mg 04/11/24 15:48 Glucagon Inj 1 Mg Vial IM Q15MIN PRN BG <70, and no IV access Heparin Sodium (Porcine) 5,000 unit 04/12/24 14:00 04/15/24 05:11 Heparin Sod Inj 5000 Unit/Ml Vial SC 04/26/24 13:59 5,000 unit Q8HR OVI Administration Hydromorphone HCl 1 mg 04/11/24 15:39 04/13/24 19:42 Hydromorphone Inj 2 Mg/Ml Vial IVP 04/16/24 15:38 1 mg Q4HR PRN Administration Pain 7-10 Piperacillin/Tazobactam/Dextrose 50 mls @ 12.5 mls/hr 04/11/24 21:00 04/15/24 08:30 Zosyn IV 04/18/24 20:59 12.5 mls/hr Q12HR [facility] Administration Albumin Human 25 gm in 100 mls @ 100 mls/min 04/12/24 09:24 04/12/24 13:53 Albuminar-25 Ivpb IV 100 mls/min PRN PRN Administration DIALYSIS Insulin Glargine 5 unit 04/13/24 09:00 04/15/24 08:14 Insulin Glargine (Lantus) 5 Unit/0.05 Ml (Per 5 Units) SC 05/13/24 08:59 Not Given QDAY [facility] Insulin Human Lispro 0 unit 04/14/24 00:00 04/15/24 12:08 Insulin Lispro (Admelog) 1 Unit/0.01 Ml Unit SC 05/14/24 00:00 Not Given Q6HR [facility] Protocol Ondansetron HCl 4 mg 04/11/24 15:24 Ondansetron Inj 2 Mg/Ml Inj 2 Ml IV 05/11/24 15:23 Q4HR PRN NAUSEA OR VOMITING Protocol Pantoprazole Sodium 40 mg 04/11/24 20:00 04/15/24 08:30 Pantoprazole Inj 40 Mg Vial IVP 05/11/24 19:59 40 mg QDAY OVI Administration Sennosides 1 tab 04/13/24 03:47 04/13/24 04:04 Senna Tablet PO 05/13/24 03:46 1 tab QDAY PRN Administration constipation Protocol Plan Assessment and plan: Summary: 53-year-old male patient with diabetes mellitus, hypertension, diabetic/hypertensive nephrosclerosis, end-stage renal disease on dialysis M/W/F, and CVA (acute infarcts left basal ganglia and acute infarct left caudate nucleus on 04/2022) w/right sided residual deficits presented to the ED of [facility] from [facility] facility for chief complaint of abdominal pain x 3 days. Patient was septic with tachypneic, tachycardic, with elevated WBC on ED presentation. Found to have ruptured acute appendicitis on CT abdomen and pelvis. He was given 2 L IV fluid per sepsis protocol in the ED, Zozyn and vancomycin. Lactic acid 1.3, LDH 150. Procalcitonin 21.80. Patient was admitted for management of sepsis secondary to ruptured acute appendicitis, requiring laparoscopic appendectomy with no surgical complications. #Small bowel obstruction #Sepsis, stable secondary to #Ruptured acute appendicitis, resolved #Status post laparoscopic appendectomy #Peritonitis #Leukocytosis Patient presented with severe abdominal pain worsening over 3 nights, found to have ruptured appendicitis on imaging. He was septic on presentation secondary to ruptured appendicitis, now s/p appendectomy Peritonitis is noted in setting of constipation and severe abdominal tenderness. CT ab/pelvis: Bibasilar pneumonia, primary hepatocellular disease. Recommend hepatobiliary sonography to exclude acute calculus cholecystitis. Acute appendicitis with localized rupture and probable peritonitis, no focal pelvic abscess. HIDA showed: gallbladder sludge, no gallstones, gallbladder wall is thickened, measured up to 4.5 mm, common bile duct 4 mm. MRCP : Distended gallbladder, negative for cholecystitis; hepatosplenomegaly. 04/14/24: Patient had about 2.2 L suctioned out via G-tube, 300 mL suctioned out on 04/13. Patient is complaining of pellet-like stools, is having small bowel movements, small bowel series conclusive of small bowel obstruction. Plan: -IV Zosyn 3.375 every 12 hours (04/11- -IV Zofran every 4 hours as needed for Nausea/vomitting -IV Dilaudid every 4 hours as needed -Consulted general surgery, appreciate recommendations -NG to with low intermittent suction -NPO in setting of new onset SBO -Follow-up CBC and CMP in AM #End-stage renal disease on dialysis M/W/F Patient developing ESRD secondary to diabetic nephrosclerosis. AV fistula present in right arm. BUN 42, 5.4, GFR 12. -Consulted nephrology -dialysis per schedule -renal panel in am -Avoid nephrotoxic agents -Renally dose medications #Diabetes mellitus (A1c 5.6) Patient has a history of diabetes mellitus. Target blood glucose range 140-180 -Sliding scale insulin -Bedside glucose checks -Hypoglycemic protocol #Hypertension #Hypertensive nephrosclerosis Patient has a history of hypertension. Patient's blood pressure remains soft. -Hydralazine as needed #CVA (2021) with right-sided residual deficits Acute infarcts of left basal ganglia and acute infarct left caudate nucleus on 04/2022. Patient has residual paralysis of right upper and lower extremities. Slurred speech noted. -aspirin 81mg daily and atorvastatin 40mg daily. #Acute cholecystitis, ruled out Health maintenance: DVT prophylaxis: Heparin GI prophylaxis: Pantoprazole Diet: NPO Code status: Full Case discussed with Attending Dr. Rondon and Dr. Rosas PGY3. Vincent Barrett PGY1 Attending Provider Attestation/Addendum I have discussed and was present for the essential components of the history, physical examination, diagnosis, and treatment plan with the resident. I agree with the patient's care as documented by the resident and amended herein by me. Vicente Rondon DO. Although this document has been carefully reviewed, there may still be some phonetic and other typographical errors. These errors are purely grammatical due to imperfections in the software program and should not be construed in any way to compromise the substance of the patient's medical care during this visit.
--- NOTE | 2024-04-15 13:51 | PD.SURPROG ---
Documentation for date of: 04/15/24 Subjective Subjective Narrative: Patient is seen and examined. He is resting comfortably. He denies abdominal pain. It was reported that his NG tube had approximately 2 L output Exam Vital Signs Temp Pulse Resp BP Pulse Ox O2 Del Method O2 Flow Rate 97.8 F 98 18 168/86 H 98 Room Air 4 04/15/24 12:00 04/15/24 12:00 04/15/24 12:00 04/15/24 12:00 04/15/24 12:00 04/15/24 08:00 04/15/24 00:00 Constitutional Constitutional: no acute distress Routine Abdominal Exam Comments: Abdomen is soft very minimally distended. There is no tenderness to palpation. Incisions are clean, dry and intact Assessment & Plan Assessment Additional comments: Status post laparoscopic appendectomy for perforated appendicitis with peritonitis Plan Clinically patient does not have evidence of bowel obstruction. Recommend clamping the NG tube and placing lactulose through the NG tube. Will also administer an enema Procedures Procedures Laparoscopic appendectomy with abdominal washout
[2024-04-15] MEDS: HYDROmorphone INJ 2 MG/ML VIAL 1 MG IVP (20:56)
[2024-04-15] MEDS: hydrALAZINE INJ 20 MG/ML VIAL 10 MG IV (20:57)
[2024-04-16] VITALS (10 sets, daily range): BP systolic 141–167; BP diastolic 73–91; PULSE 81–96; RESP 13–19; TEMP 36.4–36.9; O2SAT 97–98; BMI 22.8
[2024-04-16] MEDS: HEPARIN SOD INJ 5000 UNIT/ML VIAL SC ×3 (06:09→21:32)
[2024-04-16 07:35] LABS: Basophils # (Auto) 0.1 Thou/mm3 (0.0-0.2); Basophils % (Auto) 1 % (0-2.5); Eosinophils # (Auto) 0.4 Thou/mm3 (0.0-0.5); Eosinophils % (Auto) 4 % (0-10); Hematocrit 30.7 % (41.0-53.0); Hemoglobin 9.8 g/dL (13.5-16.0); Immature Granulocytes % (Auto) 1 % (0-0); Immature Granulocytes Auto 0.12 Thou/mm3 (0.00-0.00); Lymphocytes # (Auto) 0.9 Thou/mm3 (1.0-4.8); Lymphocytes % (Auto) 8 % (10-50); Mean Corpuscular HGB Conc 31.9 g/dl (31.0-37.0); Mean Corpuscular Hemoglobin 31.6 pg (25.0-35.0); Mean Corpuscular Volume 99 fL (80-100); Monocytes # (Auto) 1.2 Thou/mm3 (0.0-0.8); Monocytes % (Auto) 11 % (0-12); Neutrophils # (Auto) 8.2 Thou/mm3 (1.8-7.7); Neutrophils % (Auto) 76 % (37-80); Nucleated Red Blood Cell % 0 /100 WBC (0); Platelet Count 377 Thou/mm3 (140-440); White Blood Count 10.9 Thou/mm3 (3.8-10.6)
--- NOTE | 2024-04-16 07:40 | XR_ITS ---
Examination: Abdomen AP single view Technique: AP portable supine abdomen, single view Exam date and time: April 16, 2024 0750 hrs. Indications: Abdominal pain and distention this week, small bowel obstruction pattern on abdomen films April 14, 2024, examination is 36 hours post small bowel series Findings: Contrast is present in the colon on the current study with air distended small bowel loops Impression: Small bowel obstruction pattern but incomplete small bowel obstruction as contrast now is present almost entirely in the colon
[2024-04-16 08:14] LABS: Alanine Aminotransferase 8 U/L (10-49); Albumin, Serum 4.3 gm/dL (3.5-5.0); Albumin/Globulin Ratio 1.3 (1.2-2.2); Alkaline Phosphatase 159 U/L (46-116); Anion Gap 13 (7-16); Aspartate Amino Transferase 11 U/L (0-34); BUN/Creatinine Ratio 8 Ratio (12-20); Bilirubin,Total 0.7 mg/dL (0.3-1.2); Blood Urea Nitrogen 61 mg/dL (9-23); Calcium 9.8 mg/dL (8.3-10.6); Calcium (Corrected) 9.8 mg/dL (8.5-10.1); Chloride 98 mMol/L (98-107); Creatinine (Component) 7.3 mg/dL (0.6-1.3); Estimated Creatinine Clearance 10.7 mL/min (>60); Globulin 3.3 gm/dL (2.3-3.5); Glucose 227 mg/dL (74-106); Osmolality,Calculated 303 (275-295); Potassium 4.4 mMol/L (3.4-5.1); Sodium 140 mMol/L (136-145); Total Protein 7.6 gm/dL (5.7-8.2); eGFR 8 See Note
[2024-04-16] MEDS: PIPER/TAZO 3.375 GM 50 ML IV ×2 (09:36→20:59)
[2024-04-16] MEDS: PANTOPRAZOLE INJ 40 MG VIAL IVP (09:36)
[2024-04-16] MEDS: Milk Of Magnesia Susp 30 ML UDC NG (09:55)
[2024-04-16] MEDS: hydrALAZINE INJ 20 MG/ML VIAL 10 MG IV (11:54)
[2024-04-16] MEDS: INSULIN GLARGINE (Lantus) 5 UNIT/0.05 ML (PER 5 UNITS) 10 UNIT SC (12:09)
--- NOTE | 2024-04-16 12:40 | PC.SS ---
Rounding: Pending Gen SX consult/reccs, possible DC 1-2 days
--- NOTE | 2024-04-16 12:55 | PD.NEPHPROG ---
Documentation for date of: 04/16/24 Subjective Subjective Interval history: 53 y/o M with PMHx significant for diabetes mellitus, hypertension, diabetic/hypertensive nephrosclerosis, ESRD on dialysis M/W/F, and and CVA w/right sided residual deficits [facility] for chief complaint of abdominal pain x 3 days. Patient endorses that the pain was diffuse and generalized throughout his abdomen. He rated it as an 8 out of 10 in severity diffuse pain. The pain was not associated with food. Patient endorses that he did not any eat anything out of the ordinary. He also endorses that he has not had any urine for the past 3 days and he has not produced stool over the past 5 days. Patient denies headache, fever, chills, chest pain, palpitation, shortness of breath, dizziness, nausea, vomiting, or diarrhea. CT A/P showed acute appendicitis with localized rupture. Patient was admitted for management of sepsis secondary to ruptured acute appendicitis. In ED labs significant for bicarb 30.3, BUN 60, creatinine 6.6, eGFR 9, procalcitonin 21.8. Patient given 1 L IV bolus, vancomycin and Zosyn. Patient underwent laparoscopic appendectomy which revealed diffuse peritonitis, patient underwent abdominal washout. Procedures well-tolerated. Patient had some episodes of hypotension, was transferred to telemetry for further monitoring. Nephrology consulted for ESRD requiring dialysis M// schedule. Patient seen and examined at bedside. Patient appears mildly uncomfortable, mild abdominal tenderness. Patient complains of persistent hiccups. Labs today showed potassium 5.6, BUN 70, creatinine 7.3, eGFR 8. Plan for dialysis today as per patient's regular schedule. 04/13: Patient seen and examined at bedside. Patient appears mildly uncomfortable, complains of constipation, discussed with primary team. Patient denies hiccups. Currently on diabetic clear liquid diet, tolerating well. BUN 42, creatinine 5.4, eGFR 12. Plan for dialysis tomorrow as per patient's regular schedule. 04/14: Patient seen and examined at bedside. Patient appears mildly comfortable. Patient was diagnosed with SBO on imaging by primary team, has NG tube placed with intermittent suction, received Gastrografin for small bowel follow-through. Plan for hemodialysis today as per patient's regular schedule. 04/15: Patient seen and examined at bedside. Patient appeared more comfortable than yesterday, reports having small bowel movement overnight. Patient still has NG tube. BUN 42, creatinine 5.9, EGFR 11. No plan for dialysis today, will keep patient's regular schedule. 04/16/2024 patient currently seen in telemetry. Family at bedside. Resting comfortably. Good bowel sounds. He still complaining of constipation. Spoke to Dr. Rondon-will do manual disimpaction. Blood sugar 209. Blood pressure 116/90 C85, heart rate 95, afebrile. WBC 10.9, hemoglobin 9.8, platelets 377. Sodium 140, potassium 4.4, BUN 61, creatinine 7.3, glucose 227, LFTs normal, albumin 4.3. Will DC NG tube. Patient will get dialysis tomorrow. Hopefully can be discharged tomorrow if stable. Review of Systems Review of Systems Narrative Review of Systems: CONSTITUTIONAL: Patient denies any fever, chills. HEENT: Denies any visual disturbances or hearing problems. CARDIOVASCULAR: Patient denies any chest pain, shortness of breath, swelling in the lower extremities. PULMONARY: Patient denies any shortness of breath, cough. GASTROINTESTINAL: Complaining of constipation. Abdominal pain is better. GENITOURINARY: Patient denies any urinary symptoms of burning or frequency or hematuria, denies any form in the urine. SKIN: Denies any rash. MUSCULOSKELETAL: Complaining of gait imbalance NEUROLOGICAL: Has right hemiparesis from previous stroke Exam Vital Signs Temp Pulse Resp BP Pulse Ox O2 Del Method O2 Flow Rate 36.9 C 95 18 161/85 H 98 Room Air 4 04/16/24 16:00 04/16/24 16:00 04/16/24 16:00 04/16/24 16:00 04/16/24 16:00 04/16/24 16:00 04/15/24 23:57 Objective Labs 04/16/24 07:22 04/16/24 07:22 Labs: Laboratory Results - last 24 hr 04/16/24 07:22 WBC 10.9 H RBC 3.10 L Hgb 9.8 L Hct 30.7 L MCV 99 MCH 31.6 MCHC 31.9 RDW Std Deviation 49.0 H Plt Count 377 Neut % (Auto) 76 Lymph % (Auto) 8 L [place] % (Auto) 11 Eos % (Auto) 4 Baso % (Auto) 1 Neut # (Auto) 8.2 H Lymph # (Auto) 0.9 L [place] # (Auto) 1.2 H Eos # (Auto) 0.4 Baso # (Auto) 0.1 Immature Gran # (Auto) 0.12 H Absolute Nucleated RBC 0.00 Immature Gran % 1 H Nucleated RBC % 0 Sodium 140 Potassium 4.4 Chloride 98 Carbon Dioxide 29.0 Anion Gap 13 BUN 61 H Creatinine 7.3 H* D Estim Creat Clear Calc 10.7 L eGFR 8 L* BUN/Creatinine Ratio 8 L Glucose 227 H Calculated Osmolality 303 H Calcium 9.8 Corrected Calcium 9.8 Total Bilirubin 0.7 AST 11 ALT 8 L Alkaline Phosphatase 159 H Total Protein 7.6 Albumin 4.3 Globulin 3.3 Albumin/Globulin Ratio 1.3 Assessment & Plan Assessment and plan (1) Acute appendicitis with perforation and generalized peritonitis, without abscess or gangrene: Status: Acute Additional Assessment & Plan Additional Plan: 1)?ESRD ESRD secondary to hypertensive nephrosclerosis. patient goes to dialysis unit Wednesday, Wednesday, Wednesday Next dialysis scheduled for tomorrow Plan of care discussed with the dialysis nurse. (2) uncontrolled hypertension Blood pressure meds adjusted by primary team-blood pressure better (3) with rupture acute appendicitis ?Status:?Acute ? ? ? Assessment and plan: S/p appendectomy (4) Anemia: ?Status:?Acute ? ? ? Assessment and plan: Patient noted to have anemia secondary to renal failure. Epogen with dialysis (5) Renal osteodystrophy: ?Status:?Acute ? ? ? Assessment and plan: Patient noted to have ? hyperphosphatemia secondary to renal failure. Currently n.p.o. (6) hyperlipidemia: ?Status:?Acute ? ? ? Assessment and plan: Continue Lipitor 7) right hemiparesis secondary to stroke: ?Status:?Chronic ? ? ? Assessment and plan: Continue with aspirin, lipitor Plan of care discussed with Dr. Rondon. AMENA Caal. Manual disimpaction today. He needs dialysis tomorrow
--- NOTE | 2024-04-16 13:22 | ESPR_ITS ---
<Statement entered by Brayden Rosas MD - 04/16/24 15:25> Senior Resident Attestation: I supervised/discussed management plan with resident physician Dr. Salgado, and was involved in the care of this patient. I personally saw and examined the patient and discussed the assessment and plan with the entire medicine team, including my attending. Patient was seen and examined by bedside, continues to endorse mild lower quadrant abdominal tenderness, reports sensation of fecal matter at rectum, minimal NG tube output overnight, patient was given lactulose with clamping of NG tube by general surgery, KUB shows partial SBO with contrast present in colon, will discuss NG tube removal with general surgery along with continuation of IV antibiotics for perforated appendix/peritonitis. Will attempt manual disimpaction of fecal matter, will also increase patient's insulin glargine to 10 units from 5 as a.m. glucose continues to be elevated around 210. Will continue to follow-up patient and evaluate for possible discharge after patient tolerates regular diet and has normal bowel movements and is cleared from surgical standpoint in regards to peritonitis. Patient's care was discussed with attending physician, Dr. Nela Rosas MD PGY-3 Documentation for date of: 04/16/24 Subjective Subjective Interval history: Patient passed soft, small stools. Patient seen and examined at bedside. Labs reviewed. On 04/16/2020 4 in the morning he endorses feeling stool in his rectum, but he is unable to withdraw his stools from his rectum. Therefore, patient is requesting for manual disimpaction of his rectum. Will perform manual disimpaction. Surgical team following patient. Continue patient n.p.o. with goal to transition to clear liquids as tolerated. Exam Vital Signs Temp Pulse Resp BP Pulse Ox O2 Del Method O2 Flow Rate 97.9 F 89 19 167/88 H 97 Room Air 4 04/16/24 12:00 04/16/24 12:00 04/16/24 12:00 04/16/24 12:00 04/16/24 12:00 04/16/24 12:00 04/15/24 23:57 Narrative Exam Constitutional: Chadian-speaking, bed bound, slurred speech in mild distress. HEENT: NCAT, EOMI, reactive round pupils b/l, moist mucous membranes, on room air Lung: CTAB, no wheezing, no rhonchi, no crackles. Heart: Regular S1S2, no murmurs, gallops, or rubs Abdomen: Soft, non-distended, +left lower quadrant increased tenderness, [place] noted at midline. Extremities: No cyanosis, no edema of b/l legs, residual deficits of right upper and lower extremities s/p CVA. AV fistula on right arm. Neurologic: Motor deficits noted on right UE and LE, generally alert and oriented to person, place and time, appropriate affect Skin: Warm, dry, no lesions or rashes noted Objective Labs 04/16/24 07:22 04/16/24 07:22 Labs: Laboratory Results - last 24 hr 04/16/24 07:22 WBC 10.9 H RBC 3.10 L Hgb 9.8 L Hct 30.7 L MCV 99 MCH 31.6 MCHC 31.9 RDW Std Deviation 49.0 H Plt Count 377 Neut % (Auto) 76 Lymph % (Auto) 8 L Grant % (Auto) 11 Eos % (Auto) 4 Baso % (Auto) 1 Neut # (Auto) 8.2 H Lymph # (Auto) 0.9 L Grant # (Auto) 1.2 H Eos # (Auto) 0.4 Baso # (Auto) 0.1 Immature Gran # (Auto) 0.12 H Absolute Nucleated RBC 0.00 Immature Gran % 1 H Nucleated RBC % 0 Sodium 140 Potassium 4.4 Chloride 98 Carbon Dioxide 29.0 Anion Gap 13 BUN 61 H Creatinine 7.3 H* D Estim Creat Clear Calc 10.7 L eGFR 8 L* BUN/Creatinine Ratio 8 L Glucose 227 H Calculated Osmolality 303 H Calcium 9.8 Corrected Calcium 9.8 Total Bilirubin 0.7 AST 11 ALT 8 L Alkaline Phosphatase 159 H Total Protein 7.6 Albumin 4.3 Globulin 3.3 Albumin/Globulin Ratio 1.3 Quality Measures Quality Measures VTE prophylaxis Assessment & Plan Assessment Current Active Medications: Generic Name Dose Route Start Last Admin Trade Name Freq PRN Reason Stop Dose Admin Acetaminophen 650 mg 04/11/24 15:42 Acetaminophen 325 Mg Tablet PO 05/11/24 15:23 Q6H PRN Fever >101.5 or pain 1-3 Aspirin 81 mg 04/12/24 09:00 04/16/24 09:35 Aspirin Ec 81 Mg Tabec PO 05/12/24 08:59 Not Given QDAY OVI Atorvastatin Calcium 80 mg 04/12/24 21:00 04/15/24 21:13 Atorvastatin Calcium 20 Mg Tablet PO 05/12/24 20:59 Not Given HS [facility] Calcium Acetate 667 mg 04/12/24 08:00 04/16/24 11:52 Calcium Acetate 667 Mg Tablet PO 05/12/24 07:59 Not Given TIDWM [facility] Chlorpromazine HCl 25 mg 04/12/24 09:00 04/16/24 05:58 Chlorpromazine 25 Mg Tablet PO 05/12/24 08:59 Not Given TID OVI Dextrose 25 ml 04/11/24 15:48 Dextrose 50%-Water Inj 50 Ml Syringe IV 05/11/24 15:47 Q15MIN PRN BG 50-70 responsive npo pt Dextrose 50 ml 04/11/24 15:48 Dextrose 50%-Water Inj 50 Ml Syringe IV 05/11/24 15:47 Q15MIN PRN BG <50 OR BG <70 & pt unresponsive Docusate Sodium 100 mg 04/13/24 09:15 04/16/24 09:35 Docusate Sod 100 Mg Capsule PO 05/13/24 09:14 Not Given BID [facility] Protocol Glucagon 1 mg 04/11/24 15:48 Glucagon Inj 1 Mg Vial IM Q15MIN PRN BG <70, and no IV access Heparin Sodium (Porcine) 5,000 unit 04/12/24 14:00 04/16/24 06:09 Heparin Sod Inj 5000 Unit/Ml Vial SC 04/26/24 13:59 5,000 unit Q8HR OVI Administration Hydralazine HCl 10 mg 04/15/24 14:17 04/16/24 11:54 Hydralazine Inj 20 Mg/Ml Vial IV 05/15/24 14:29 10 mg Q6H PRN Administration HTN SBP>160, DBP>100 Hydromorphone HCl 1 mg 04/11/24 15:39 04/15/24 20:56 Hydromorphone Inj 2 Mg/Ml Vial IVP 04/16/24 15:38 1 mg Q4HR PRN Administration Pain 7-10 Piperacillin/Tazobactam/Dextrose 50 mls @ 12.5 mls/hr 04/11/24 21:00 04/16/24 09:36 Zosyn IV 04/18/24 20:59 12.5 mls/hr Q12HR OVI Administration Albumin Human 25 gm in 100 mls @ 100 mls/min 04/12/24 09:24 04/12/24 13:53 Albuminar-25 Ivpb IV 100 mls/min PRN PRN Administration DIALYSIS Insulin Glargine 10 unit 04/16/24 09:00 04/16/24 09:35 Insulin Glargine (Lantus) 5 Unit/0.05 Ml (Per 5 Units) SC 05/16/24 08:59 Not Given QDAY OVI Insulin Human Lispro 0 unit 04/14/24 00:00 04/16/24 05:29 Insulin Lispro (Admelog) 1 Unit/0.01 Ml Unit SC 05/14/24 00:00 Not Given Q6HR OVI Protocol Ondansetron HCl 4 mg 04/11/24 15:24 Ondansetron Inj 2 Mg/Ml Inj 2 Ml IV 05/11/24 15:23 Q4HR PRN NAUSEA OR VOMITING Protocol Pantoprazole Sodium 40 mg 04/11/24 20:00 04/16/24 09:36 Pantoprazole Inj 40 Mg Vial IVP 05/11/24 19:59 40 mg QDAY OVI Administration Sennosides 1 tab 04/13/24 03:47 04/13/24 04:04 Senna Tablet PO 05/13/24 03:46 1 tab QDAY PRN Administration constipation Protocol Plan 53-year-old male patient with diabetes mellitus, hypertension, diabetic/hypertensive nephrosclerosis, end-stage renal disease on dialysis M/W/F, and CVA (acute infarcts left basal ganglia and acute infarct left caudate nucleus on 04/2022) w/right sided residual deficits presented to the ED of [facility] for chief complaint of abdominal pain x 3 days. Patient was septic with tachypneic, tachycardic, with elevated WBC on ED presentation. Patient found to have ruptured acute appendicitis on CT abdomen and pelvis. He was given 2 L IV fluid per sepsis protocol in the ED, Zozyn and vancomycin. Lactic acid 1.3, LDH 150. Procalcitonin 21.80. Patient was admitted for management of sepsis secondary to ruptured acute appendicitis, requiring laparoscopic appendectomy with no surgical complications. SBO on Xray abdomen, per surgery, it does not present clinically as SBO. #Small bowel obstruction, less likely- resolving #Peritonitis #Leukocytosis, improving #Sepsis, stable secondary to #Ruptured acute appendicitis, resolved #Status post laparoscopic appendectomy Patient presented with severe abdominal pain worsening over 3 nights, found to have ruptured appendicitis on imaging, now s/p appendectomy. Peritonitis is noted in setting of constipation and severe abdominal tenderness. CT ab/pelvis: Bibasilar pneumonia, primary hepatocellular disease. Recommend hepatobiliary sonography to exclude acute calculus cholecystitis. Acute appendicitis with localized rupture and probable peritonitis, no focal pelvic abscess. HIDA showed: gallbladder sludge, no gallstones, gallbladder wall is thickened, measured up to 4.5 mm, common bile duct 4 mm. MRCP : Distended gallbladder, negative for cholecystitis; hepatosplenomegaly. 04/14/24: Patient had about 2.2 L suctioned out via G-tube, 300 mL suctioned out on 04/13. Patient is complaining of pellet-like stools with active bowel movement; small bowel series conclusive of small bowel obstruction. Clinically patient does not have evidence of bowel obstruction according to surgery team. 04/16/24: Patient complained of stool present in his rectum. NG suction clamped. Plan: -Surgery consulted; recommended clamping the NG tube and placed lactulose through the NG tube plus enema. -Will perform manual disimpaction of stools per rectum. -IV Zosyn 3.375 every 12 hours (04/11- -IV Zofran every 4 hours as needed for Nausea/vomitting -IV Dilaudid every 4 hours as needed -NG to with low intermittent suction- clamped. -NPO -Goal: transition to clear liq diet as tolerated -Follow-up CBC and CMP in AM #End-stage renal disease on dialysis M/W/F Patient developing ESRD secondary to diabetic nephrosclerosis. AV fistula present in right arm. BUN 61, 7.3, GFR 8. -Consulted nephrology -dialysis per schedule -renal panel in am -Avoid nephrotoxic agents -Renally dose medications #Diabetes mellitus (A1c 5.6) Patient has a history of diabetes mellitus. Target blood glucose range 140-180 -Sliding scale insulin -Bedside glucose checks -Hypoglycemic protocol #Hypertension #Hypertensive nephrosclerosis Patient has a history of hypertension. Patient's blood pressure remains soft. -Hydralazine as needed #CVA (2021) with right-sided residual deficits Acute infarcts of left basal ganglia and acute infarct left caudate nucleus on 04/2022. Patient has residual paralysis of right upper and lower extremities. Slurred speech noted. -aspirin 81mg daily and atorvastatin 40mg daily. #Acute cholecystitis, ruled out Health maintenance: DVT prophylaxis: Heparin GI prophylaxis: Pantoprazole Diet: NPO, transition to clear liq as tolerated Code status: Full Discussed case with my attending and senior Brayden Rosas, PGY-3. Thank you, Nisreen Salgado, PGY-2 Attending Provider Attestation/Addendum I have discussed and was present for the essential components of the history, physical examination, diagnosis, and treatment plan with the resident. I agree with the patient's care as documented by the resident and amended herein by me. Vicente Rondon, DO. Patient seen and evaluated this AM. Vital signs stable, patient afebrile overnight, NG tube clamped in the morning however I will remove this today as the patient is clinically doing well, denies any abdominal pain however still states he feels like there is stool stuck in his rectum. We did perform a manual disimpaction this afternoon and were able to remove copious amounts of stool. Will also give a tapwater enema and advance diet as tolerated. Patient can likely be discharged tomorrow morning to SNF pending surgical recs and continued improvement. Although this document has been carefully reviewed, there may still be some phonetic and other typographical errors. These errors are purely grammatical due to imperfections in the software program and should not be construed in any way to compromise the substance of the patient's medical care during this visit.
--- NOTE | 2024-04-16 15:26 | PD.SURPROG ---
Documentation for date of: 04/16/24 Subjective Subjective Narrative: Patient is seen and examined. His pain is improving. He denies nausea or vomiting. He has had bowel movements Exam Vital Signs Temp Pulse Resp BP Pulse Ox O2 Del Method O2 Flow Rate 97.9 F 92 19 160/83 H 97 Room Air 4 04/16/24 12:00 04/16/24 13:58 04/16/24 12:00 04/16/24 13:58 04/16/24 12:00 04/16/24 12:00 04/15/24 23:57 Constitutional Constitutional: no acute distress Routine Abdominal Exam Abdominal: Present soft, normoactive bowel sounds and tenderness (Minimal tenderness over left lower quadrant incision. Incisions are clean, dry and intact); Absent distended Assessment & Plan Assessment Additional comments: Postop day #5 status post laparoscopic appendectomy Plan Continue IV antibiotics. May DC NG tube and start diabetic clear liquids Procedures Procedures Laparoscopic appendectomy with abdominal washout
[2024-04-16] MEDS: CALCIUM ACETATE 667 MG TABLET PO (18:01)
[2024-04-16] MEDS: INSULIN LISPRO (AdmeLOG) 1 UNIT/0.01 ML UNIT SC (18:05)
[2024-04-16] MEDS: ATORVASTATIN CALCIUM 20 MG TABLET 80 MG PO (20:59)
[2024-04-16] MEDS: DOCUSATE SOD 100 MG CAPSULE PO (20:59)
[2024-04-16] MEDS: CHLORPROMAZINE 25 MG PO (21:00)
[2024-04-16] MEDS: ACETAMINOPHEN 325 MG TABLET 650 MG PO (21:14)
[2024-04-17] VITALS (22 sets, daily range): BP systolic 107–161; BP diastolic 57–83; PULSE 64–95; RESP 12–24; TEMP 36–36.6; O2SAT 95–100; BMI 21.8; BMI 13.0
[2024-04-17] MEDS: INSULIN LISPRO (AdmeLOG) 1 UNIT/0.01 ML UNIT SC ×2 (00:21→12:10)
[2024-04-17 05:50] LABS: Basophils # (Auto) 0.1 Thou/mm3 (0.0-0.2); Basophils % (Auto) 1 % (0-2.5); Eosinophils # (Auto) 0.5 Thou/mm3 (0.0-0.5); Eosinophils % (Auto) 4 % (0-10); Hematocrit 28.1 % (41.0-53.0); Immature Granulocytes % (Auto) 2 % (0-0); Immature Granulocytes Auto 0.28 Thou/mm3 (0.00-0.00); Lymphocytes # (Auto) 1.4 Thou/mm3 (1.0-4.8); Lymphocytes % (Auto) 10 % (10-50); Mean Corpuscular Hemoglobin 31.8 pg (25.0-35.0); Mean Corpuscular Volume 99 fL (80-100); Monocytes # (Auto) 1.1 Thou/mm3 (0.0-0.8); Monocytes % (Auto) 9 % (0-12); Neutrophils # (Auto) 9.6 Thou/mm3 (1.8-7.7); Neutrophils % (Auto) 74 % (37-80); Nucleated Red Blood Cell % 0 /100 WBC (0); Platelet Count 363 Thou/mm3 (140-440); RDW Standard Deviation 48.3 fL (35.1-43.9); Red Blood Count 2.83 Miln/mm3 (4.50-5.90)
[2024-04-17] MEDS: CHLORPROMAZINE 25 MG PO ×2 (06:33→15:41)
[2024-04-17] MEDS: HEPARIN SOD INJ 5000 UNIT/ML VIAL SC ×3 (06:34→21:43)
[2024-04-17] MEDS: ACETAMINOPHEN 325 MG TABLET 650 MG PO ×3 (06:43→22:10)
[2024-04-17 06:55] LABS: Alanine Aminotransferase 8 U/L (10-49); Albumin, Serum 3.8 gm/dL (3.5-5.0); Albumin/Globulin Ratio 1.3 (1.2-2.2); Alkaline Phosphatase 137 U/L (46-116); Anion Gap 13 (7-16); Aspartate Amino Transferase 14 U/L (0-34); BUN/Creatinine Ratio 8 Ratio (12-20); Bilirubin,Total 0.6 mg/dL (0.3-1.2); Blood Urea Nitrogen 67 mg/dL (9-23); Calcium 9.2 mg/dL (8.3-10.6); Calcium (Corrected) 9.4 mg/dL (8.5-10.1); Carbon Dioxide 29.8 mMol/L (20.0-31.0); Chloride 97 mMol/L (98-107); Creatinine (Component) 8.3 mg/dL (0.6-1.3); Estimated Creatinine Clearance 9.3 mL/min (>60); Globulin 2.9 gm/dL (2.3-3.5); Glucose 136 mg/dL (74-106); Osmolality,Calculated 300 (275-295); Potassium 4.2 mMol/L (3.4-5.1); Sodium 140 mMol/L (136-145); Total Protein 6.7 gm/dL (5.7-8.2); eGFR 7 See Note
--- NOTE | 2024-04-17 07:30 | PC.NURSE ---
Patient was taken to dialysis at this time.
--- NOTE | 2024-04-17 08:12 | ESPR_ITS ---
Documentation for date of: 04/17/24 Subjective Subjective Narrative: Patient is seen and examined in dialysis unit. He is resting comfortably, denying abdominal pain. He was tolerating liquid diet without nausea or vomiting and had bowel movement Exam Vital Signs Temp Pulse Resp BP Pulse Ox O2 Del Method O2 Flow Rate 96.8 F 94 13 161/83 H 96 Room Air 4 04/17/24 07:59 04/17/24 07:59 04/17/24 07:59 04/17/24 07:59 04/17/24 07:59 04/17/24 04:00 04/15/24 23:57 Constitutional Constitutional: no acute distress Routine Abdominal Exam Abdominal: Present soft, normoactive bowel sounds and tenderness (Minimal kathy- incisional tenderness. Incisions are clean, dry and intact); Absent distended Assessment & Plan Assessment Additional comments: Status post laparoscopic appendectomy for perforated appendicitis with peritonitis Plan Continue IV antibiotics, WBC still elevated. May advance diet Procedures Procedures Laparoscopic appendectomy with abdominal washout
--- NOTE | 2024-04-17 10:37 | PC.SS ---
Pt was identified as a possible DC today, SS reached out to Lizet who requested updated clinicals to submit auth. Updated clinicals submitted via [facility].
[2024-04-17] MEDS: CALCIUM ACETATE 667 MG TABLET PO ×2 (12:08→17:32)
[2024-04-17] MEDS: DOCUSATE SOD 100 MG CAPSULE PO ×2 (12:09→21:42)
[2024-04-17] MEDS: INSULIN GLARGINE (Lantus) 5 UNIT/0.05 ML (PER 5 UNITS) 10 UNIT SC (12:09)
[2024-04-17] MEDS: ASPIRIN EC 81 MG TABEC PO (12:09)
[2024-04-17] MEDS: PANTOPRAZOLE INJ 40 MG VIAL IVP (12:11)
[2024-04-17] MEDS: PIPER/TAZO 3.375 GM 50 ML IV ×2 (12:11→21:43)
[2024-04-17] MEDS: SENNA TABLET 1 TAB PO (12:20)
--- NOTE | 2024-04-17 13:16 | ESPR_ITS ---
Documentation for date of: 04/17/24 Subjective Subjective Interval history: 53 y/o M with PMHx significant for diabetes mellitus, hypertension, diabetic/hypertensive nephrosclerosis, ESRD on dialysis M/W/F, and and CVA w/right sided residual deficits presented to the ED from group home facility for chief complaint of abdominal pain x 3 days. Patient endorses that the pain was diffuse and generalized throughout his abdomen. He rated it as an 8 out of 10 in severity diffuse pain. The pain was not associated with food. Patient endorses that he did not any eat anything out of the ordinary. He also endorses that he has not had any urine for the past 3 days and he has not produced stool over the past 5 days. Patient denies headache, fever, chills, chest pain, palpitation, shortness of breath, dizziness, nausea, vomiting, or diarrhea. CT A/P showed acute appendicitis with localized rupture. Patient was admitted for management of sepsis secondary to ruptured acute appendicitis. In ED labs significant for bicarb 30.3, BUN 60, creatinine 6.6, eGFR 9, procalcitonin 21.8. Patient given 1 L IV bolus, vancomycin and Zosyn. Patient underwent laparoscopic appendectomy which revealed diffuse peritonitis, patient underwent abdominal washout. Procedures well-tolerated. Patient had some episodes of hypotension, was transferred to telemetry for further monitoring. Nephrology consulted for ESRD requiring dialysis M// schedule. Patient seen and examined at bedside. Patient appears mildly uncomfortable, mild abdominal tenderness. Patient complains of persistent hiccups. Labs today showed potassium 5.6, BUN 70, creatinine 7.3, eGFR 8. Plan for dialysis today as per patient's regular schedule. 04/13: Patient seen and examined at bedside. Patient appears mildly uncomfortable, complains of constipation, discussed with primary team. Patient denies hiccups. Currently on diabetic clear liquid diet, tolerating well. BUN 42, creatinine 5.4, eGFR 12. Plan for dialysis tomorrow as per patient's regular schedule. 04/14: Patient seen and examined at bedside. Patient appears mildly comfortable. Patient was diagnosed with SBO on imaging by primary team, has NG tube placed with intermittent suction, received Gastrografin for small bowel follow-through. Plan for hemodialysis today as per patient's regular schedule. 04/15: Patient seen and examined at bedside. Patient appeared more comfortable than yesterday, reports having small bowel movement overnight. Patient still has NG tube. BUN 42, creatinine 5.9, EGFR 11. No plan for dialysis today, will keep patient's regular schedule. 04/16/2024 patient currently seen in telemetry. Family at bedside. Resting comfortably. Good bowel sounds. He still complaining of constipation. Spoke to Dr. Rondon-will do manual disimpaction. Blood sugar 209. Blood pressure 116/90 C85, heart rate 95, afebrile. WBC 10.9, hemoglobin 9.8, platelets 377. Sodium 140, potassium 4.4, BUN 61, creatinine 7.3, glucose 227, LFTs normal, albumin 4.3. Will DC NG tube. Patient will get dialysis tomorrow. Hopefully can be discharged tomorrow if stable. 04/17/2024 patient currently seen in dialysis. Feeling much better. Tolerating p.o. intake. NG tube was discontinued. Renal hannon stable for discharge back to rehab. Review of Systems Review of Systems Narrative Review of Systems: CONSTITUTIONAL: Patient denies any fever, chills. HEENT: Denies any visual disturbances or hearing problems. CARDIOVASCULAR: Patient denies any chest pain, shortness of breath, swelling in the lower extremities. PULMONARY: Patient denies any shortness of breath, cough. GASTROINTESTINAL: Constipation abdominal pain better GENITOURINARY: Patient denies any urinary symptoms of burning or frequency or hematuria, denies any form in the urine. SKIN: Denies any rash. MUSCULOSKELETAL: Complaining of gait imbalance NEUROLOGICAL: Has right hemiparesis from previous stroke Exam Vital Signs Temp Pulse Resp BP Pulse Ox O2 Del Method O2 Flow Rate 36.2 C 64 17 128/57 L 100 Room Air 4 04/17/24 12:00 04/17/24 12:00 04/17/24 12:00 04/17/24 12:00 04/17/24 12:00 04/17/24 12:00 04/15/24 23:57 Narrative Exam ?Patient currently seen indialysis CARDIOVASCULAR: Heart regular, no murmurs LUNGS/CHEST: Clear to auscultation ABDOMEN: Good bowel sounds. Status post appendectomy EXTREMITIES: No edema, clubbing or cyanosis.? SKIN: Skin exam normal without any rashes. MUSCULOSKELETAL: in bed NEUROLOGICAL : Dense hemiplegia on the right side. Speech problems noted. patient alert and awake, facial droop on the rt side Objective Labs 04/18/24 04:47 04/18/24 04:47 Labs: Laboratory Results - last 24 hr 04/17/24 04:46 WBC 13.0 H RBC 2.83 L Hgb 9.0 L Hct 28.1 L MCV 99 MCH 31.8 MCHC 32.0 RDW Std Deviation 48.3 H Plt Count 363 Neut % (Auto) 74 Lymph % (Auto) 10 [place] % (Auto) 9 Eos % (Auto) 4 Baso % (Auto) 1 Neut # (Auto) 9.6 H Lymph # (Auto) 1.4 [place] # (Auto) 1.1 H Eos # (Auto) 0.5 Baso # (Auto) 0.1 Immature Gran # (Auto) 0.28 H Absolute Nucleated RBC 0.00 Immature Gran % 2 H Nucleated RBC % 0 Sodium 140 Potassium 4.2 Chloride 97 L Carbon Dioxide 29.8 Anion Gap 13 BUN 67 H Creatinine 8.3 H* D Estim Creat Clear Calc 9.3 L eGFR 7 L* BUN/Creatinine Ratio 8 L Glucose 136 H D Calculated Osmolality 300 H Calcium 9.2 Corrected Calcium 9.4 Total Bilirubin 0.6 AST 14 ALT 8 L Alkaline Phosphatase 137 H D Total Protein 6.7 Albumin 3.8 D Globulin 2.9 Albumin/Globulin Ratio 1.3 Assessment & Plan Assessment and plan (1) Acute appendicitis with perforation and generalized peritonitis, without abscess or gangrene: Status: Acute Additional Assessment & Plan Additional Plan: 1)?ESRD ESRD secondary to hypertensive nephrosclerosis. patient goes to dialysis unit Wednesday, Wednesday, Wednesday Patient currently seen on dialysis. Tolerating dialysis without any problems. Hemodialysis for 3 hours, 2K, ultrafiltration 2-3 L, Epogen 6000, no heparin ordered. Plan of care discussed with the dialysis nurse. Please see dialysis flowsheet for further details. (2) hypertension Blood pressure meds adjusted by primary team-blood pressure better (3) with rupture acute appendicitis ?Status:?Acute ? ? ? Assessment and plan: S/p appendectomy (4) Anemia: ?Status:?Acute ? ? ? Assessment and plan: Patient noted to have anemia secondary to renal failure. Epogen with dialysis (5) Renal osteodystrophy: ?Status:?Acute ? ? ? Assessment and plan: Patient noted to have ? hyperphosphatemia secondary to renal failure. Binders (6) hyperlipidemia: ?Status:?Acute ? ? ? Assessment and plan: Continue Lipitor 7) right hemiparesis secondary to stroke: ?Status:?Chronic ? ? ? Assessment and plan: Continue with aspirin, lipitor Plan of care discussed with primary team Quality - progress note Quality Measures Quality Measures: VTE prophylaxis Reason for Continued Stay Reason for Continued Stay: further monitoring
--- NOTE | 2024-04-17 14:00 | PC.SS ---
Rounding: Pt DC held due to General SX requesting one more day of monitoring
--- NOTE | 2024-04-17 17:42 | ESPR_ITS ---
Documentation for date of: 04/17/24 Subjective Subjective Interval history: No overnight events. Patient seen and examined at bedside. Labs reviewed. Patient did not pass any stools overnight. After manual disimpaction, patient felt relief and has not had to pass stools today. Surgical team following patient, recommended to keep patient for slight uptrend in WBCs. Advanced diet to renal diet per patient's tolerance today. Exam Vital Signs Temp Pulse Resp BP Pulse Ox O2 Del Method O2 Flow Rate 97.8 F 86 24 H 150/80 H 99 Room Air 4 04/17/24 16:00 04/17/24 16:00 04/17/24 16:00 04/17/24 16:00 04/17/24 16:00 04/17/24 16:00 04/15/24 23:57 Narrative Exam Constitutional: [place] African-speaking, bed bound, slurred speech as per baseline. HEENT: NCAT, EOMI, reactive round pupils b/l, moist mucous membranes, on room air Lung: CTAB, no wheezing, no rhonchi, no crackles. Heart: Regular S1S2, no murmurs, gallops, or rubs Abdomen: Soft, non-distended, non-tender, [place] noted at midline. Extremities: No cyanosis, no edema of b/l legs, residual deficits of right upper and lower extremities s/p CVA. AV fistula on right arm. Neurologic: Motor deficits noted on right UE and LE, generally alert and oriented to person, place and time, appropriate affect Skin: Warm, dry, no lesions or rashes noted Objective Labs 04/17/24 04:46 04/17/24 04:46 Labs: Laboratory Results - last 24 hr 04/17/24 04:46 WBC 13.0 H RBC 2.83 L Hgb 9.0 L Hct 28.1 L MCV 99 MCH 31.8 MCHC 32.0 RDW Std Deviation 48.3 H Plt Count 363 Neut % (Auto) 74 Lymph % (Auto) 10 [place] % (Auto) 9 Eos % (Auto) 4 Baso % (Auto) 1 Neut # (Auto) 9.6 H Lymph # (Auto) 1.4 [place] # (Auto) 1.1 H Eos # (Auto) 0.5 Baso # (Auto) 0.1 Immature Gran # (Auto) 0.28 H Absolute Nucleated RBC 0.00 Immature Gran % 2 H Nucleated RBC % 0 Sodium 140 Potassium 4.2 Chloride 97 L Carbon Dioxide 29.8 Anion Gap 13 BUN 67 H Creatinine 8.3 H* D Estim Creat Clear Calc 9.3 L eGFR 7 L* BUN/Creatinine Ratio 8 L Glucose 136 H D Calculated Osmolality 300 H Calcium 9.2 Corrected Calcium 9.4 Total Bilirubin 0.6 AST 14 ALT 8 L Alkaline Phosphatase 137 H D Total Protein 6.7 Albumin 3.8 D Globulin 2.9 Albumin/Globulin Ratio 1.3 Quality Measures Quality Measures VTE prophylaxis Assessment & Plan Assessment Current Active Medications: Generic Name Dose Route Start Last Admin Trade Name Freq PRN Reason Stop Dose Admin Acetaminophen 650 mg 04/11/24 15:42 04/17/24 12:20 Acetaminophen 325 Mg Tablet PO 05/11/24 15:23 650 mg Q6H PRN Administration Fever >101.5 or pain 1-3 Aspirin 81 mg 04/12/24 09:00 04/17/24 12:09 Aspirin Ec 81 Mg Tabec PO 05/12/24 08:59 81 mg QDAY OVI Administration Atorvastatin Calcium 80 mg 04/12/24 21:00 04/16/24 20:59 Atorvastatin Calcium 20 Mg Tablet PO 05/12/24 20:59 80 mg HS OVI Administration Calcium Acetate 667 mg 04/12/24 08:00 04/17/24 17:32 Calcium Acetate 667 Mg Tablet PO 05/12/24 07:59 667 mg TIDWM OVI Administration Chlorpromazine HCl 25 mg 04/12/24 09:00 04/17/24 15:41 Chlorpromazine 25 Mg Tablet PO 05/12/24 08:59 25 mg TID OVI Administration Dextrose 25 ml 04/11/24 15:48 Dextrose 50%-Water Inj 50 Ml Syringe IV 05/11/24 15:47 Q15MIN PRN BG 50-70 responsive npo pt Dextrose 50 ml 04/11/24 15:48 Dextrose 50%-Water Inj 50 Ml Syringe IV 05/11/24 15:47 Q15MIN PRN BG <50 OR BG <70 & pt unresponsive Docusate Sodium 100 mg 04/13/24 09:15 04/17/24 12:09 Docusate Sod 100 Mg Capsule PO 05/13/24 09:14 100 mg BID OVI Administration Protocol Glucagon 1 mg 04/11/24 15:48 Glucagon Inj 1 Mg Vial IM Q15MIN PRN BG <70, and no IV access Heparin Sodium (Porcine) 5,000 unit 04/12/24 14:00 04/17/24 15:41 Heparin Sod Inj 5000 Unit/Ml Vial SC 04/26/24 13:59 5,000 unit Q8HR OVI Administration Hydralazine HCl 10 mg 04/15/24 14:17 04/16/24 11:54 Hydralazine Inj 20 Mg/Ml Vial IV 05/15/24 14:29 10 mg Q6H PRN Administration HTN SBP>160, DBP>100 Piperacillin/Tazobactam/Dextrose 50 mls @ 12.5 mls/hr 04/11/24 21:00 04/17/24 12:11 Zosyn IV 04/18/24 20:59 12.5 mls/hr Q12HR OVI Administration Albumin Human 25 gm in 100 mls @ 100 mls/min 04/12/24 09:24 04/12/24 13:53 Albuminar-25 Ivpb IV 100 mls/min PRN PRN Administration DIALYSIS Insulin Glargine 10 unit 04/16/24 09:00 04/17/24 12:09 Insulin Glargine (Lantus) 5 Unit/0.05 Ml (Per 5 Units) SC 05/16/24 08:59 10 unit QDAY OVI Administration Insulin Human Lispro 0 unit 04/17/24 07:30 04/17/24 16:51 Insulin Lispro (Admelog) 1 Unit/0.01 Ml Unit SC 05/17/24 07:29 Not Given ACHS [facility] Protocol Ondansetron HCl 4 mg 04/11/24 15:24 Ondansetron Inj 2 Mg/Ml Inj 2 Ml IV 05/11/24 15:23 Q4HR PRN NAUSEA OR VOMITING Protocol Pantoprazole Sodium 40 mg 04/11/24 20:00 04/17/24 12:11 Pantoprazole Inj 40 Mg Vial IVP 05/11/24 19:59 40 mg QDAY OVI Administration Sennosides 1 tab 04/13/24 03:47 04/17/24 12:20 Senna Tablet PO 05/13/24 03:46 1 tab QDAY PRN Administration constipation Protocol Plan 53-year-old male patient with diabetes mellitus, hypertension, diabetic/hypertensive nephrosclerosis, end-stage renal disease on dialysis M/W/F, and CVA (acute infarcts left basal ganglia and acute infarct left caudate nucleus on 04/2022) w/right sided residual deficits presented to the ED of [facility] from senior care facility for chief complaint of abdominal pain x 3 days. Patient was septic with tachypneic, tachycardic, with elevated WBC on ED presentation. Patient found to have ruptured acute appendicitis on CT abdomen and pelvis. He was given 2 L IV fluid per sepsis protocol in the ED, Zozyn and vancomycin. Lactic acid 1.3, LDH 150. Procalcitonin 21.80. Patient was admitted for management of sepsis secondary to ruptured acute appendicitis, requiring laparoscopic appendectomy with no surgical complications. SBO on Xray abdomen, per surgery, it did not present clinically as SBO, s/p manual disimpaction on 04/16. #Small bowel obstruction, less likely, resolved #Sepsis, stable secondary to #Ruptured acute appendicitis, resolved #Status post laparoscopic appendectomy #Leukocytosis, stable Patient presented with severe abdominal pain worsening over 3 nights, found to have ruptured appendicitis on imaging, now s/p appendectomy. Peritonitis is noted in setting of constipation and severe abdominal tenderness. CT ab/pelvis: Bibasilar pneumonia, primary hepatocellular disease. Recommend hepatobiliary sonography to exclude acute calculus cholecystitis. Acute appendicitis with localized rupture and probable peritonitis, no focal pelvic abscess. HIDA showed: gallbladder sludge, no gallstones, gallbladder wall is thickened, measured up to 4.5 mm, common bile duct 4 mm. MRCP : Distended gallbladder, negative for cholecystitis; hepatosplenomegaly. 04/14/24: Patient had about 2.2 L suctioned out via G-tube, 300 mL suctioned out on 04/13. Small bowel series was conclusive of small bowel obstruction. Clinically patient did not have evidence of bowel obstruction according to surgery team. S/p manual disimpaction of stools on 04/16/2024. Plan: -Surgery consulted; recommended to clamp the NG tube lactulose through the NG tube plus enema, followed by removal of NG tube and continue IV ABX. -IV Zosyn 3.375 every 12 hours (04/11- -IV Zofran every 4 hours as needed for Nausea/vomitting -IV Dilaudid every 4 hours as needed -renal diet -Follow-up CBC and CMP in AM #End-stage renal disease on dialysis M/W/F Patient developing ESRD secondary to diabetic nephrosclerosis. AV fistula present in right arm. BUN 67, 8.3, GFR 7. Dialysis sesssion done today. -Consulted nephrology -dialysis per schedule -renal panel in am -Avoid nephrotoxic agents -Renally dose medications #Diabetes mellitus (A1c 5.6) Patient has a history of diabetes mellitus. Target blood glucose range 140-180 -Sliding scale insulin -Bedside glucose checks -Hypoglycemic protocol #Hypertension #Hypertensive nephrosclerosis Patient has a history of hypertension. Patient's blood pressure remains soft. -Hydralazine as needed #CVA (2021) with right-sided residual deficits Acute infarcts of left basal ganglia and acute infarct left caudate nucleus on 04/2022. Patient has residual paralysis of right upper and lower extremities. Slurred speech noted. -aspirin 81mg daily and atorvastatin 40mg daily. #Acute cholecystitis, ruled out #Peritonitis, resolved Health maintenance: DVT prophylaxis: Heparin GI prophylaxis: Pantoprazole Diet: renal Code status: Full Dispo: will discharge if stable within 24 hours. Discussed case with my attending and senior Brayden Rosas, PGY-3. Thank you, Nisreen Salgado, PGY-2 Attending Provider Attestation/Addendum I have discussed and was present for the essential components of the history, physical examination, diagnosis, and treatment plan with the resident. I agree with the patient's care as documented by the resident and amended herein by me. Vicente Rondon, DO. Patient seen and evaluated this AM. Patient clinically doing well today, vital signs stable, patient afebrile overnight, 1 bowel movement recorded. WBC slightly up trended to 13. Will continue to advance diet and continue IV antibiotics per surgery for now, possible discharge on 04/16 per specialist recommendations. Hemodialysis scheduled for today. Although this document has been carefully reviewed, there may still be some phonetic and other typographical errors. These errors are purely grammatical due to imperfections in the software program and should not be construed in any way to compromise the substance of the patient's medical care during this visit.
[2024-04-17] MEDS: ATORVASTATIN CALCIUM 20 MG TABLET 80 MG PO (21:42)
[2024-04-18] VITALS: BP 138/74; PULSE 87; RESP 20; TEMP 36.4; O2SAT 97
[2024-04-18 04:00] VITALS: BP 133/79; PULSE 87; PULSE 88; RESP 22; TEMP 36.6; O2SAT 96
[2024-04-18] MEDS: HEPARIN SOD INJ 5000 UNIT/ML VIAL SC ×3 (05:38→21:36)
[2024-04-18 06:26] LABS: Basophils # (Auto) 0.1 Thou/mm3 (0.0-0.2); Basophils % (Auto) 0 % (0-2.5); Eosinophils # (Auto) 0.5 Thou/mm3 (0.0-0.5); Eosinophils % (Auto) 4 % (0-10); Hematocrit 29.2 % (41.0-53.0); Hemoglobin 9.1 g/dL (13.5-16.0); Immature Granulocytes % (Auto) 3 % (0-0); Immature Granulocytes Auto 0.33 Thou/mm3 (0.00-0.00); Lymphocytes # (Auto) 1.3 Thou/mm3 (1.0-4.8); Lymphocytes % (Auto) 10 % (10-50); Mean Corpuscular HGB Conc 31.2 g/dl (31.0-37.0); Mean Corpuscular Hemoglobin 31.3 pg (25.0-35.0); Mean Corpuscular Volume 100 fL (80-100); Monocytes # (Auto) 1.1 Thou/mm3 (0.0-0.8); Monocytes % (Auto) 8 % (0-12); Neutrophils # (Auto) 10.1 Thou/mm3 (1.8-7.7); Neutrophils % (Auto) 76 % (37-80); Nucleated Red Blood Cell % 0 /100 WBC (0); Platelet Count 378 Thou/mm3 (140-440); RDW Standard Deviation 49.7 fL (35.1-43.9); Red Blood Count 2.91 Miln/mm3 (4.50-5.90); White Blood Count 13.4 Thou/mm3 (3.8-10.6)
[2024-04-18 07:23] LABS: Alanine Aminotransferase 22 U/L (10-49); Albumin, Serum 3.8 gm/dL (3.5-5.0); Albumin/Globulin Ratio 1.3 (1.2-2.2); Alkaline Phosphatase 152 U/L (46-116); Anion Gap 10 (7-16); Aspartate Amino Transferase 44 U/L (0-34); BUN/Creatinine Ratio 6 Ratio (12-20); Bilirubin,Total 0.6 mg/dL (0.3-1.2); Blood Urea Nitrogen 35 mg/dL (9-23); Calcium (Corrected) 9.2 mg/dL (8.5-10.1); Carbon Dioxide 29.5 mMol/L (20.0-31.0); Chloride 97 mMol/L (98-107); Creatinine (Component) 5.4 mg/dL (0.6-1.3); Estimated Creatinine Clearance 14.3 mL/min (>60); Globulin 2.9 gm/dL (2.3-3.5); Glucose 61 mg/dL (74-106); Osmolality,Calculated 277 (275-295); Potassium 3.9 mMol/L (3.4-5.1); Sodium 136 mMol/L (136-145); Total Protein 6.7 gm/dL (5.7-8.2); eGFR 12 See Note
[2024-04-18 08:00] VITALS: BP 127/72; PULSE 93; PULSE 99; RESP 17; TEMP 36.6; O2SAT 97
--- NOTE | 2024-04-18 08:19 | PC.NURSE ---
Spoke with Dr. Salgado regarding patients blood sugar of 68- per Dr. Damian perez.
[2024-04-18] MEDS: Milk Of Magnesia Susp 30 ML UDC PO (08:30)
[2024-04-18] MEDS: LACTULOSE SYRUP 20 GM/30 ML UDC PO (08:31)
[2024-04-18] MEDS: PANTOPRAZOLE INJ 40 MG VIAL IVP (08:32)
[2024-04-18] MEDS: CALCIUM ACETATE 667 MG TABLET PO ×3 (08:32→16:47)
[2024-04-18] MEDS: DOCUSATE SOD 100 MG CAPSULE PO ×2 (08:32→21:35)
[2024-04-18] MEDS: ASPIRIN EC 81 MG TABEC PO (08:35)
[2024-04-18] MEDS: PIPER/TAZO 3.375 GM 50 ML IV (08:35)
--- NOTE | 2024-04-18 08:46 | PC.NURSE ---
Patient blood sugar 68 at 0730 with no hypoglycemic effects, patient was provided meal tray at 0730. After patient finished eating blood sugar was rechecked and was 67. Dr. Salgado notified and orders received to hold lantus. Patient provided juice and carb and on repeat blood sugar check blood sugar was stable at 104.
--- NOTE | 2024-04-18 10:27 | ESPR_ITS ---
Documentation for date of: 04/18/24 Subjective Subjective Narrative: Patient is seen and examined. He is resting comfortably. Denies abdominal pain. He is tolerating diet without nausea or vomiting and having bowel movements Exam Vital Signs Temp Pulse Resp BP Pulse Ox O2 Del Method O2 Flow Rate 97.9 F 93 17 127/72 97 Room Air 4 04/18/24 08:00 04/18/24 08:00 04/18/24 08:00 04/18/24 08:00 04/18/24 08:00 04/18/24 08:00 04/15/24 23:57 Constitutional Constitutional: no acute distress Routine Abdominal Exam Abdominal: Present soft, normoactive bowel sounds and surgical scars (Incisions are clean, dry and intact); Absent tenderness or distended Assessment & Plan Assessment Additional comments: Postop day #7 status post laparoscopic appendectomy for perforated appendicitis with generalized peritonitis Plan Patient clinically improved, has remained afebrile and WBC has been changed. M ay discharge on oral antibiotics for 7 days (Cipro 500 twice daily). Procedures Procedures Laparoscopic appendectomy with abdominal washout
--- NOTE | 2024-04-18 10:28 | PD.RESPRO ---
Documentation for date of: 04/18/24 Subjective Subjective Interval history: 53 y/o M with PMHx significant for diabetes mellitus, hypertension, diabetic/hypertensive nephrosclerosis, ESRD on dialysis M/W/F, and and CVA w/right sided residual deficits presented to the ED from [facility] for chief complaint of abdominal pain x 3 days. Patient endorses that the pain was diffuse and generalized throughout his abdomen. He rated it as an 8 out of 10 in severity diffuse pain. The pain was not associated with food. Patient endorses that he did not any eat anything out of the ordinary. He also endorses that he has not had any urine for the past 3 days and he has not produced stool over the past 5 days. Patient denies headache, fever, chills, chest pain, palpitation, shortness of breath, dizziness, nausea, vomiting, or diarrhea. CT A/P showed acute appendicitis with localized rupture. Patient was admitted for management of sepsis secondary to ruptured acute appendicitis. In ED labs significant for bicarb 30.3, BUN 60, creatinine 6.6, eGFR 9, procalcitonin 21.8. Patient given 1 L IV bolus, vancomycin and Zosyn. Patient underwent laparoscopic appendectomy which revealed diffuse peritonitis, patient underwent abdominal washout. Procedures well-tolerated. Patient had some episodes of hypotension, was transferred to telemetry for further monitoring. Nephrology consulted for ESRD requiring dialysis M// schedule. Patient seen and examined at bedside. Patient appears mildly uncomfortable, mild abdominal tenderness. Patient complains of persistent hiccups. Labs today showed potassium 5.6, BUN 70, creatinine 7.3, eGFR 8. Plan for dialysis today as per patient's regular schedule. 04/13: Patient seen and examined at bedside. Patient appears mildly uncomfortable, complains of constipation, discussed with primary team. Patient denies hiccups. Currently on diabetic clear liquid diet, tolerating well. BUN 42, creatinine 5.4, eGFR 12. Plan for dialysis tomorrow as per patient's regular schedule. 04/14: Patient seen and examined at bedside. Patient appears mildly comfortable. Patient was diagnosed with SBO on imaging by primary team, has NG tube placed with intermittent suction, received Gastrografin for small bowel follow-through. Plan for hemodialysis today as per patient's regular schedule. 04/15: Patient seen and examined at bedside. Patient appeared more comfortable than yesterday, reports having small bowel movement overnight. Patient still has NG tube. BUN 42, creatinine 5.9, EGFR 11. No plan for dialysis today, will keep patient's regular schedule. 04/16/2024 patient currently seen in telemetry. Family at bedside. Resting comfortably. Good bowel sounds. He still complaining of constipation. Spoke to Dr. Rondon-will do manual disimpaction. Blood sugar 209. Blood pressure 116/90 C85, heart rate 95, afebrile. WBC 10.9, hemoglobin 9.8, platelets 377. Sodium 140, potassium 4.4, BUN 61, creatinine 7.3, glucose 227, LFTs normal, albumin 4.3. Will DC NG tube. Patient will get dialysis tomorrow. Hopefully can be discharged tomorrow if stable. 04/18/2024: Patient currently seen in telemetry. Resting comfortably. Good bowel sounds. Patient has had good bowel movements, is tolerating solid foods well without nausea or vomiting. Sodium 136, potassium 3.9, bicarb 29.5, BUN 35, creatinine 5.4, GFR 12. Does not need dialysis today, potentially discharge today. Exam Vital Signs Temp Pulse Resp BP Pulse Ox O2 Del Method O2 Flow Rate 97.9 F 93 17 127/72 97 Room Air 4 04/18/24 08:00 04/18/24 08:00 04/18/24 08:00 04/18/24 08:00 04/18/24 08:00 04/18/24 08:00 04/15/24 23:57 Narrative Exam PE: Gen: Well-developed and well-nourished. HEENT: NCAT, PERRLA, EOMI, MMM, anicteric conjunctivae. CVS: normal S1 and S2. RRR. No M/R/G. Resp: CTA B/L. No rhonchi, rales, crackles or wheezing. Abd: soft, non-distended. Bowel sounds present. Laparoscopic procedure incisions, clean, nonerythematous. Minimal tenderness. MSK: Good ROM in LUE & LLE. No edema or rash. Neuro: CN II-XII grossly intact. Strength 5/5 in LUE & LLE. Alert and oriented x3. Right-sided paralysis secondary to previous stroke. Psych: appropriate mood and affect. Objective Labs 04/18/24 04:47 04/18/24 04:47 Labs: Laboratory Results - last 24 hr 04/18/24 04:47 WBC 13.4 H RBC 2.91 L Hgb 9.1 L Hct 29.2 L MCV 100 MCH 31.3 MCHC 31.2 RDW Std Deviation 49.7 H Plt Count 378 Neut % (Auto) 76 Lymph % (Auto) 10 [place] % (Auto) 8 Eos % (Auto) 4 Baso % (Auto) 0 Neut # (Auto) 10.1 H Lymph # (Auto) 1.3 [place] # (Auto) 1.1 H Eos # (Auto) 0.5 Baso # (Auto) 0.1 Immature Gran # (Auto) 0.33 H Absolute Nucleated RBC 0.00 Immature Gran % 3 H Nucleated RBC % 0 Sodium 136 Potassium 3.9 Chloride 97 L Carbon Dioxide 29.5 Anion Gap 10 BUN 35 H Creatinine 5.4 H* D Estim Creat Clear Calc 14.3 L eGFR 12 L* BUN/Creatinine Ratio 6 L Glucose 61 L D Calculated Osmolality 277 Calcium 9.0 Corrected Calcium 9.2 Total Bilirubin 0.6 AST 44 H ALT 22 Alkaline Phosphatase 152 H Total Protein 6.7 Albumin 3.8 Globulin 2.9 Albumin/Globulin Ratio 1.3 Quality Measures Quality Measures VTE prophylaxis Assessment & Plan Assessment Current Active Medications: Generic Name Dose Route Start Last Admin Trade Name Freq PRN Reason Stop Dose Admin Acetaminophen 650 mg 04/11/24 15:42 04/17/24 22:10 Acetaminophen 325 Mg Tablet PO 05/11/24 15:23 650 mg Q6H PRN Administration Fever >101.5 or pain 1-3 Aspirin 81 mg 04/12/24 09:00 04/18/24 08:35 Aspirin Ec 81 Mg Tabec PO 05/12/24 08:59 81 mg QDAY OVI Administration Atorvastatin Calcium 80 mg 04/12/24 21:00 04/17/24 21:42 Atorvastatin Calcium 20 Mg Tablet PO 05/12/24 20:59 80 mg HS OVI Administration Calcium Acetate 667 mg 04/12/24 08:00 04/18/24 08:32 Calcium Acetate 667 Mg Tablet PO 05/12/24 07:59 667 mg TIDWM OVI Administration Chlorpromazine HCl 25 mg 04/12/24 09:00 04/18/24 05:46 Chlorpromazine 25 Mg Tablet PO 05/12/24 08:59 Not Given TID OVI Dextrose 25 ml 04/11/24 15:48 Dextrose 50%-Water Inj 50 Ml Syringe IV 05/11/24 15:47 Q15MIN PRN BG 50-70 responsive npo pt Dextrose 50 ml 04/11/24 15:48 Dextrose 50%-Water Inj 50 Ml Syringe IV 05/11/24 15:47 Q15MIN PRN BG <50 OR BG <70 & pt unresponsive Docusate Sodium 100 mg 04/13/24 09:15 04/18/24 08:32 Docusate Sod 100 Mg Capsule PO 05/13/24 09:14 100 mg BID OVI Administration Protocol Glucagon 1 mg 04/11/24 15:48 Glucagon Inj 1 Mg Vial IM Q15MIN PRN BG <70, and no IV access Heparin Sodium (Porcine) 5,000 unit 04/12/24 14:00 04/18/24 05:38 Heparin Sod Inj 5000 Unit/Ml Vial SC 04/26/24 13:59 5,000 unit Q8HR OVI Administration Hydralazine HCl 10 mg 04/15/24 14:17 04/16/24 11:54 Hydralazine Inj 20 Mg/Ml Vial IV 05/15/24 14:29 10 mg Q6H PRN Administration HTN SBP>160, DBP>100 Piperacillin/Tazobactam/Dextrose 50 mls @ 12.5 mls/hr 04/11/24 21:00 04/18/24 08:35 Zosyn IV 04/18/24 20:59 12.5 mls/hr Q12HR OVI Administration Albumin Human 25 gm in 100 mls @ 100 mls/min 04/12/24 09:24 04/12/24 13:53 Albuminar-25 Ivpb IV 100 mls/min PRN PRN Administration DIALYSIS Insulin Human Lispro 0 unit 04/17/24 07:30 04/18/24 07:29 Insulin Lispro (Admelog) 1 Unit/0.01 Ml Unit SC 05/17/24 07:29 Not Given ACHS [facility] Protocol Ondansetron HCl 4 mg 04/11/24 15:24 Ondansetron Inj 2 Mg/Ml Inj 2 Ml IV 05/11/24 15:23 Q4HR PRN NAUSEA OR VOMITING Protocol Pantoprazole Sodium 40 mg 04/11/24 20:00 04/18/24 08:32 Pantoprazole Inj 40 Mg Vial IVP 05/11/24 19:59 40 mg QDAY OVI Administration Sennosides 1 tab 04/13/24 03:47 04/17/24 12:20 Senna Tablet PO 05/13/24 03:46 1 tab QDAY PRN Administration constipation Protocol Plan 53 y/o M with PMHx significant for diabetes mellitus, hypertension, diabetic/hypertensive nephrosclerosis, ESRD on dialysis M/W/F, and and CVA w/right sided residual deficits presented to the ED from [facility] for chief complaint of abdominal pain x 3 days, admitted for ruptured appendicitis. #End-stage renal disease on dialysis M/W/F Patient developed ESRD secondary to diabetic nephrosclerosis. On admission labs showed BUN 60, creatinine 6.6, eGFR 9. Plan: -Dialysis as per patient's regular schedule -tomorrow -Monitor daily labs -Avoid nephrotoxic agents -Renally dose medications -Patient cleared for discharge from nephrology perspective #Hiccups -resolved Patient complaining of hiccups, likely secondary to laparoscopic procedure. Resolved with treatment. -Thorazine 25 mg p.o. 3 times daily #Small bowel obstruction #Sepsis #Ruptured acute appendicitis #Healthcare acquired pneumonia #Diabetes mellitus #Hypertension #Hypertensive nephrosclerosis #CVA (2021) Management as per primary team. DVT prophylaxis: Heparin GI prophylaxis: Protonix Diet: Diabetic clear liquid Lines: Peripheral IV Code status: Full code Thank you for allowing participate in the care of this patient. Plan of care discussed with attending Dr. Nunez. Reilly Hill MD PGY-1 Attending Provider Attestation/Addendum patient seen and examined with resident physician Dr. Hill. Note reviewed, agree with findings and recommendations with changes made. Patient looking much better. Next dialysis scheduled for tomorrow.
[2024-04-18 12:00] VITALS: BP 158/89; PULSE 59; PULSE 97; RESP 17; TEMP 36.2; O2SAT 97
[2024-04-18] MEDS: ONDANSETRON INJ 2 MG/ML INJ 2 ML 4 MG IV (14:26)
[2024-04-18] MEDS: CHLORPROMAZINE 25 MG PO ×2 (15:32→21:30)
[2024-04-18 16:00] VITALS: BP 158/88; PULSE 105; PULSE 90; RESP 15; TEMP 36.2; O2SAT 96
--- NOTE | 2024-04-18 16:07 | PD.ADDPROG ---
Addendum Progress Note Addendum Date of report being addended: 04/18/24 Narrative: Attending's attestation: I reviewed labs, imaging, EKG, home medications and prior available records. Face to face evaluation was performed by me. I have personally examined the patient and discussed assessment and plan with the IM team. I reviewed the resident note and agree with the plan with exceptions as below. Sepsis secondary to appendicitis: Status post appendectomy. He is afebrile and WBC is downtrending. He is pending bowel movement prior to discharge to SNF. Mineral oil enema was ordered. Okay to discharge from surgical standpoint. Follow-up with surgery as outpatient. Continue ciprofloxacin 500 mg for 1 week. Hypoglycemia: Glucose was 68 this a.m. Discontinued Lantus. Monitor fingersticks.
--- NOTE | 2024-04-18 16:25 | ESPR_ITS ---
<Statement entered by Brayden Rosas MD - 04/19/24 16:27> Senior Resident Attestation: I supervised/discussed management plan with resident physician Dr. Salgado, and was involved in the care of this patient. I personally saw and examined the patient and discussed the assessment and plan with the entire medicine team, including my attending. Patient's care was discussed with attending physician, Dr. Elvis Rosas MD PGY-3 Documentation for date of: 04/18/24 Subjective Subjective Interval history: No overnight events. Patient seen and examined at bedside. Labs reviewed. Patient passed stool last yesterday evening at 5 PM, hard soft small stool. Ordered enema for patient. Patient failed to produce stool. Surgical team following patient, recommended to start ciprofloxacin 500 twice daily for total 7 days. Exam Vital Signs Temp Pulse Resp BP Pulse Ox O2 Del Method O2 Flow Rate 97.2 F 59 L 17 158/89 H 97 Room Air 4 04/18/24 12:00 04/18/24 12:00 04/18/24 12:00 04/18/24 12:00 04/18/24 12:00 04/18/24 12:00 04/15/24 23:57 Narrative Exam Constitutional: Georgian-speaking, bed bound, slurred speech as per baseline seen eating his breakfast in food tray. HEENT: NCAT, EOMI, reactive round pupils b/l, moist mucous membranes, on room air Lung: CTAB, no wheezing, no rhonchi, no crackles. Heart: Regular S1S2, no murmurs, gallops, or rubs Abdomen: Soft, non-distended, non-tender, [place] noted at midline. Extremities: No edema of b/l legs, residual deficits of right upper and lower extremities s/p CVA. AV fistula on right arm. Neurologic: Motor deficits noted on right UE and LE, generally alert and oriented to person, place and time, appropriate affect Skin: Warm, dry, no rashes noted Objective Labs 04/19/24 04:35 04/19/24 04:35 Labs: Laboratory Results - last 24 hr 04/18/24 04:47 WBC 13.4 H RBC 2.91 L Hgb 9.1 L Hct 29.2 L MCV 100 MCH 31.3 MCHC 31.2 RDW Std Deviation 49.7 H Plt Count 378 Neut % (Auto) 76 Lymph % (Auto) 10 [place] % (Auto) 8 Eos % (Auto) 4 Baso % (Auto) 0 Neut # (Auto) 10.1 H Lymph # (Auto) 1.3 [place] # (Auto) 1.1 H Eos # (Auto) 0.5 Baso # (Auto) 0.1 Immature Gran # (Auto) 0.33 H Absolute Nucleated RBC 0.00 Immature Gran % 3 H Nucleated RBC % 0 Sodium 136 Potassium 3.9 Chloride 97 L Carbon Dioxide 29.5 Anion Gap 10 BUN 35 H Creatinine 5.4 H* D Estim Creat Clear Calc 14.3 L eGFR 12 L* BUN/Creatinine Ratio 6 L Glucose 61 L D Calculated Osmolality 277 Calcium 9.0 Corrected Calcium 9.2 Total Bilirubin 0.6 AST 44 H ALT 22 Alkaline Phosphatase 152 H Total Protein 6.7 Albumin 3.8 Globulin 2.9 Albumin/Globulin Ratio 1.3 Quality Measures Quality Measures VTE prophylaxis Assessment & Plan Assessment Current Active Medications: Generic Name Dose Route Start Last Admin Trade Name Freq PRN Reason Stop Dose Admin Acetaminophen 650 mg 04/11/24 15:42 04/17/24 22:10 Acetaminophen 325 Mg Tablet PO 05/11/24 15:23 650 mg Q6H PRN Administration Fever >101.5 or pain 1-3 Aspirin 81 mg 04/12/24 09:00 04/18/24 08:35 Aspirin Ec 81 Mg Tabec PO 05/12/24 08:59 81 mg QDAY OVI Administration Atorvastatin Calcium 80 mg 04/12/24 21:00 04/17/24 21:42 Atorvastatin Calcium 20 Mg Tablet PO 05/12/24 20:59 80 mg HS OVI Administration Calcium Acetate 667 mg 04/12/24 08:00 04/18/24 12:07 Calcium Acetate 667 Mg Tablet PO 05/12/24 07:59 667 mg TIDWM OVI Administration Chlorpromazine HCl 25 mg 04/12/24 09:00 04/18/24 15:32 Chlorpromazine 25 Mg Tablet PO 05/12/24 08:59 25 mg TID OVI Administration Dextrose 25 ml 04/11/24 15:48 Dextrose 50%-Water Inj 50 Ml Syringe IV 05/11/24 15:47 Q15MIN PRN BG 50-70 responsive npo pt Dextrose 50 ml 04/11/24 15:48 Dextrose 50%-Water Inj 50 Ml Syringe IV 05/11/24 15:47 Q15MIN PRN BG <50 OR BG <70 & pt unresponsive Docusate Sodium 100 mg 04/13/24 09:15 04/18/24 08:32 Docusate Sod 100 Mg Capsule PO 05/13/24 09:14 100 mg BID OVI Administration Protocol Glucagon 1 mg 04/11/24 15:48 Glucagon Inj 1 Mg Vial IM Q15MIN PRN BG <70, and no IV access Heparin Sodium (Porcine) 5,000 unit 04/12/24 14:00 04/18/24 14:26 Heparin Sod Inj 5000 Unit/Ml Vial SC 04/26/24 13:59 5,000 unit Q8HR OVI Administration Hydralazine HCl 10 mg 04/15/24 14:17 04/16/24 11:54 Hydralazine Inj 20 Mg/Ml Vial IV 05/15/24 14:29 10 mg Q6H PRN Administration HTN SBP>160, DBP>100 Piperacillin/Tazobactam/Dextrose 50 mls @ 12.5 mls/hr 04/11/24 21:00 04/18/24 08:35 Zosyn IV 04/18/24 20:59 12.5 mls/hr Q12HR OVI Administration Albumin Human 25 gm in 100 mls @ 100 mls/min 04/12/24 09:24 04/12/24 13:53 Albuminar-25 Ivpb IV 100 mls/min PRN PRN Administration DIALYSIS Insulin Human Lispro 0 unit 04/17/24 07:30 04/18/24 11:42 Insulin Lispro (Admelog) 1 Unit/0.01 Ml Unit SC 05/17/24 07:29 Not Given ACHS [facility] Protocol Ondansetron HCl 4 mg 04/11/24 15:24 04/18/24 14:26 Ondansetron Inj 2 Mg/Ml Inj 2 Ml IV 05/11/24 15:23 4 mg Q4HR PRN Administration NAUSEA OR VOMITING Protocol Pantoprazole Sodium 40 mg 04/11/24 20:00 04/18/24 08:32 Pantoprazole Inj 40 Mg Vial IVP 05/11/24 19:59 40 mg QDAY OVI Administration Sennosides 1 tab 04/13/24 03:47 04/17/24 12:20 Senna Tablet PO 05/13/24 03:46 1 tab QDAY PRN Administration constipation Protocol Plan 53-year-old male patient with diabetes mellitus, hypertension, diabetic/hypertensive nephrosclerosis, end-stage renal disease on dialysis M/W/F, and CVA (acute infarcts left basal ganglia and acute infarct left caudate nucleus on 04/2022) w/right sided residual deficits presented to the ED of [facility] from retirement facility for chief complaint of abdominal pain x 3 days. Patient was septic with tachypneic, tachycardic, with elevated WBC on ED presentation. Patient found to have ruptured acute appendicitis on CT abdomen and pelvis. He was given 2 L IV fluid per sepsis protocol in the ED, Zozyn and vancomycin. Lactic acid 1.3, LDH 150. Procalcitonin 21.80. Patient was admitted for management of sepsis secondary to ruptured acute appendicitis, requiring laparoscopic appendectomy with no surgical complications. SBO on Xray abdomen, per surgery, it did not present clinically as SBO, s/p manual disimpaction on 04/16. #Small bowel obstruction, less likely, resolved #Sepsis, stable secondary to #Ruptured acute appendicitis, resolved #Status post laparoscopic appendectomy #Leukocytosis, stable Patient presented with severe abdominal pain worsening over 3 nights, found to have ruptured appendicitis on imaging, now s/p appendectomy. Peritonitis is noted in setting of constipation and severe abdominal tenderness. CT ab/pelvis: Bibasilar pneumonia, primary hepatocellular disease. Recommend hepatobiliary sonography to exclude acute calculus cholecystitis. Acute appendicitis with localized rupture and probable peritonitis, no focal pelvic abscess. HIDA showed: gallbladder sludge, no gallstones, gallbladder wall is thickened, measured up to 4.5 mm, common bile duct 4 mm. MRCP : Distended gallbladder, negative for cholecystitis; hepatosplenomegaly. 04/14/24: Patient had about 2.2 L suctioned out via G-tube, 300 mL suctioned out on 04/13. Small bowel series was conclusive of small bowel obstruction. Clinically patient did not have evidence of bowel obstruction according to surgery team. S/p manual disimpaction of stools on 04/16/2024. Pending stool production for discharge to SNF. Plan: -Surgery consulted; recommended to clamp the NG tube lactulose through the NG tube plus enema, followed by removal of NG tube and continue IV ABX to transition on 04/18/24 to ciprofloxacin 500 twice daily for total 7 days -IV Zofran every 4 hours as needed for Nausea/vomitting -IV Dilaudid every 4 hours as needed -renal diet -Follow-up CBC and CMP in AM -ciprofloxacin 500 twice daily for total 7 days, starting 04/18- -IV Zosyn 3.375 every 12 hours (04/11- 04/18) #End-stage renal disease on dialysis M/W/F Patient developing ESRD secondary to diabetic nephrosclerosis. AV fistula present in right arm. Dialysis completed on 04/17/24 -Consulted nephrology; appreciate reccs -dialysis per schedule to continue M// -renal panel in am -Avoid nephrotoxic agents -Renally dose medications #Diabetes mellitus (A1c 5.6) Patient has a history of diabetes mellitus. Target blood glucose range 140-180 -Sliding scale insulin -Bedside glucose checks -Hypoglycemic protocol #Hypertension #Hypertensive nephrosclerosis Patient has a history of hypertension. Patient's blood pressure remains soft. -Hydralazine as needed #CVA (2021) with right-sided residual deficits Acute infarcts of left basal ganglia and acute infarct left caudate nucleus on 04/2022. Patient has residual paralysis of right upper and lower extremities. Slurred speech noted. -aspirin 81mg daily and atorvastatin 40mg daily. #Acute cholecystitis, ruled out #Peritonitis, resolved Health maintenance: DVT prophylaxis: Heparin GI prophylaxis: Pantoprazole Diet: renal Code status: Full Dispo: will discharge if stable and produces stool within 24 hours. Discussed case with my attending Dr. Shukla and senior Brayden Rosas, PGY-3. Thank you, Nisreen Salgado, PGY-2 Attending Provider Attestation/Addendum I reviewed labs, imaging, EKG, home medications and prior available records. Face to face evaluation was performed by me. I have personally examined the patient and discussed assessment and plan with the IM team. I reviewed the resident note and agree with the plan with exceptions as below. Sepsis secondary to appendicitis: Status post appendectomy. He is afebrile and WBC is downtrending. He is pending bowel movement prior to discharge to SNF. Mineral oil enema was ordered. Okay to discharge from surgical standpoint. Follow-up with surgery as outpatient. Continue ciprofloxacin 500 mg for 1 week. Hypoglycemia: Glucose was 68 this a.m. Discontinued Lantus. Monitor fingersticks.
[2024-04-18] MEDS: bisacodyL 10 MG SUPP PR (16:47)
[2024-04-18] MEDS: POLYETHYLENE GLYCOL 17 GM PACKET PO (16:47)
[2024-04-18 20:00] VITALS: BP 139/80; PULSE 111; PULSE 118; RESP 18; TEMP 36.1; O2SAT 96
[2024-04-18] MEDS: ATORVASTATIN CALCIUM 20 MG TABLET 80 MG PO (21:35)
[2024-04-18] MEDS: ACETAMINOPHEN 325 MG TABLET 650 MG PO (21:43)
[2024-04-19] VITALS (21 sets, daily range): BP systolic 97–144; BP diastolic 56–78; PULSE 91–106; RESP 13–25; TEMP 36.1–36.9; O2SAT 96–99; BMI 22.5
[2024-04-19] MEDS: CHLORPROMAZINE 25 MG PO (05:07)
[2024-04-19] MEDS: HEPARIN SOD INJ 5000 UNIT/ML VIAL SC (05:07)
[2024-04-19 05:37] LABS: Basophils # (Auto) 0.1 Thou/mm3 (0.0-0.2); Basophils % (Auto) 0 % (0-2.5); Eosinophils # (Auto) 0.5 Thou/mm3 (0.0-0.5); Eosinophils % (Auto) 4 % (0-10); Hematocrit 28.9 % (41.0-53.0); Hemoglobin 9.2 g/dL (13.5-16.0); Immature Granulocytes % (Auto) 4 % (0-0); Immature Granulocytes Auto 0.56 Thou/mm3 (0.00-0.00); Lymphocytes # (Auto) 1.6 Thou/mm3 (1.0-4.8); Lymphocytes % (Auto) 12 % (10-50); Mean Corpuscular HGB Conc 31.8 g/dl (31.0-37.0); Mean Corpuscular Hemoglobin 32.2 pg (25.0-35.0); Mean Corpuscular Volume 101 fL (80-100); Monocytes # (Auto) 1.1 Thou/mm3 (0.0-0.8); Monocytes % (Auto) 8 % (0-12); Neutrophils # (Auto) 9.7 Thou/mm3 (1.8-7.7); Neutrophils % (Auto) 72 % (37-80); Nucleated Red Blood Cell % 0 /100 WBC (0); Platelet Count 368 Thou/mm3 (140-440); RDW Standard Deviation 50.1 fL (35.1-43.9); Red Blood Count 2.86 Miln/mm3 (4.50-5.90); White Blood Count 13.6 Thou/mm3 (3.8-10.6)
[2024-04-19 06:26] LABS: Alanine Aminotransferase 54 U/L (10-49); Albumin, Serum 3.8 gm/dL (3.5-5.0); Albumin/Globulin Ratio 1.3 (1.2-2.2); Alkaline Phosphatase 198 U/L (46-116); Anion Gap 11 (7-16); Aspartate Amino Transferase 87 U/L (0-34); BUN/Creatinine Ratio 7 Ratio (12-20); Bilirubin,Total 0.6 mg/dL (0.3-1.2); Blood Urea Nitrogen 46 mg/dL (9-23); Calcium (Corrected) 9.2 mg/dL (8.5-10.1); Carbon Dioxide 28.4 mMol/L (20.0-31.0); Chloride 96 mMol/L (98-107); Creatinine (Component) 6.8 mg/dL (0.6-1.3); Estimated Creatinine Clearance 11.5 mL/min (>60); Globulin 2.9 gm/dL (2.3-3.5); Glucose 77 mg/dL (74-106); Osmolality,Calculated 281 (275-295); Potassium 4.4 mMol/L (3.4-5.1); Sodium 135 mMol/L (136-145); Total Protein 6.7 gm/dL (5.7-8.2); eGFR 9 See Note
--- NOTE | 2024-04-19 09:35 | ESDS_ITS ---
<Statement entered by Leny Leal DO - 04/19/24 16:11> I, Leny Leal DO, attest that I was physically present for the martinez portions of the service and evaluated the patient with the resident and I reviewed and discussed the case with the resident and agree with the resident's findings and plans of care as documented above Planned Discharge Date 04/19/24 DS: Providers Provider Date of admission: 04/11/24 14:56 Primary care physician: OPAL CohenC Admitting Provider: Davian Lewis MD Attending Provider on Admission: Leny Leal DO Consults: 04/11/24 14:09 Consult to General Surgery Stat Comment: Peritonitis secondary to ruptured appendicitis Consulting Provider: Karlo Starks 04/11/24 14:10 Consult to Nephrology Stat Comment: ESRD, presented with peritonitis Consulting Provider: Rosario Nunez 04/11/24 15:38 Consult to Nephrology Routine Comment: Consulting Provider: Rosario Nunez 04/13/24 16:11 Referral Physical Therapy Routine Comment: Physician Instructions: Instructions: SNF requesting eval/treat Attending Provider on DC: Nisreen Salgado MD Discharging Provider: Nisreen Salgado MD DS: Diagnosis Problem List Completed Was Problem List Reviewed/Reconciled?: Yes Hospital Course Hospital Course Hospital course: #Small bowel obstruction, less likely, resolved #Sepsis, stable secondary to #Ruptured acute appendicitis, resolved #Status post laparoscopic appendectomy #Leukocytosis, stable #End-stage renal disease on dialysis M/W/F #Diabetes mellitus (A1c 5.6) #Hypertension #Hypertensive nephrosclerosis #CVA (2021) with right-sided residual deficit #Acute cholecystitis, ruled out #Peritonitis, resolved 53-year-old male patient with diabetes mellitus, hypertension, diabetic/hypertensive nephrosclerosis, end-stage renal disease on dialysis M/W/F, and CVA (acute infarcts left basal ganglia and acute infarct left caudate nucleus on 04/2022) w/right sided residual deficits presented to the ED of [facility] from group home facility for chief complaint of abdominal pain x 3 days. Patient was septic with tachypneic, tachycardic, with elevated WBC on ED presentation. Patient found to have ruptured acute appendicitis on CT abdomen and pelvis. He was given 2 L IV fluid per sepsis protocol in the ED, Zozyn and vancomycin. Lactic acid 1.3, LDH 150. Procalcitonin 21.80. Patient was admitted for management of sepsis secondary to ruptured acute appendicitis, requiring laparoscopic appendectomy with no surgical complications. Patient was suspected to have cholecystitis. HIDA showed: gallbladder sludge, no gallstones, gallbladder wall is thickened, measured up to 4.5 mm, common bile duct 4 mm. MRCP : Distended gallbladder, negative for cholecystitis; hepatosplenomegaly. SBO on Xray abdomen, per surgery, it did not present clinically as SBO, treated with NG LIS, followed. NG suction was subsequently clamped and removed per surgery recommendation once patient was no longer obstipated. Manual disimpaction done on 04/16/24. Enemas and oral laxatives were given to aid with stool motility. IV Zosyn was given for a total of 7 days. Surgeon recommended to discharge patient on ciprofloxacin 500 mg twice daily for total of 7 days. Patient received dialysis per dialysis schedule Fridays and nephrology was consulted. Patient has been tolerating diet and has passed 2 large stools in the past 24 hours. Patient is now medically cleared for discharge to SNF. Patient will take ciprofloxacin HCl 500 mg tablets orally twice daily for 7 days for abdominal infection. Take glycoperrolate 1mg for mucus secretions as needed twice daily by mouth. Continue milk of magnesium suspension for constipation orally once daily as needed. Continue home medications as previously prescribed. Hold clonidine 0.1 mg tablet orally twice daily until May 18, 2024, to be resumed upon evaluation by your primary care provider. Stop by carvedilol, fleet enema, glucagon, glargine, lispro, insulin regular, lactulose, and losartan. Follow-up with PCP in 1 to 2 weeks. Continue dialysis per dialysis schedule. Follow up outpatient with Dr. Nunez nephrology in 1-2 weeks. Please follow-up with general surgery Dr. Starks in 2 to 3 weeks. If symptoms worsen, patient understands to return to the ED. Discussed case with my attending Dr. Leal. Thank you, Nisreen Salgado, PGY-2 Time Spent with Patient Time attestation: Total time spent providing and/or coordinating discharge services: Time spent: Greater than 30 minutes Exam Vital Signs Temp Pulse Resp BP Pulse Ox O2 Del Method O2 Flow Rate 97.8 F 94 19 111/63 96 Room Air 4 04/19/24 08:02 04/19/24 09:30 04/19/24 08:02 04/19/24 09:30 04/19/24 08:02 04/19/24 08:00 04/15/24 23:57 Narrative Exam Constitutional: Mozambican-speaking, bed bound, slurred speech as per baseline, laying in bed. HEENT: NCAT, EOMI, reactive round pupils b/l, moist mucous membranes, on room air Lung: CTAB, no wheezing, no rhonchi, no crackles. Heart: Regular S1S2, no murmurs, gallops, or rubs Abdomen: Soft, non-distended, non-tender, [place] noted at midline. Extremities: No edema of b/l legs, residual deficits of right upper and lower extremities s/p CVA. AV fistula on right arm. Neurologic: Motor deficits noted on right UE and LE, generally alert and oriented to person, place and time, appropriate affect Skin: Warm, dry, no rashes noted Discharge Plan Plan Patient Disposition: Xfer Skilled Nsg Fac (SNF) Patient condition on transfer: Stable Care Plan Goals: Please take ciprofloxacin HCl 500 mg tablets orally twice daily for 7 days for abdominal infection. Please take glycoperrolate 1mg for mucus secretions as needed twice daily by mouth. Please take milk of magnesium suspension for constipation orally once daily as needed. Please continue home medications as previously prescribed. Please hold clonidine 0.1 mg tablet orally twice daily until May 18, 2024, to be resumed upon evaluation by your primary care provider. Please stop by carvedilol, fleet enema, glucagon, glargine, lispro, insulin regular, lactulose, and losartan. Please follow-up with PCP in 1 to 2 weeks. Please continue dialysis per dialysis schedule. Follow up outpatient with Dr. Nunez nephrology in 1-2 weeks. Please follow-up with general surgery Dr. Starks in 2 to 3 weeks. If symptoms worsen, please return to the ED. Prescriptions/Referrals Prescriptions/Med Rec: New ciprofloxacin HCl 500 mg tablet 500 mg PO BID 7 Days Qty: 14 0RF magnesium hydroxide [Milk of Magnesia] 400 mg/5 mL suspension 5 ml PO QDAY PRN (Reason: constipation) 30 Days Qty: 3780 1RF glycopyrrolate 1 mg tablet 1 mg PO BID 30 Days Qty: 60 0RF Continued calcium acetate(phosphat bind) 667 mg Capsule 667 mg PO TIDWM Qty: 90 0RF bisacodyl [Dulcolax (bisacodyl)] 10 mg Suppository 10 mg SD Q72H PRN (Reason: Constipation) Rx Instructions: if mom ineffective sennosides [Senna Lax] 8.6 mg tablet 1 tab PO QPM acetaminophen [Tylenol] 325 mg Tablet 650 mg PO Q8HR PRN (Reason: Pain, Mild) lorazepam 1 mg Tablet 1 mg PO HS cyclobenzaprine 5 mg Tablet 5 mg PO HS Rx Instructions: for muscle spasm Combivent Respimat 20-100 mcg/actuation Mist 1 puff INHALATION BID nutritional supplements Liquid 1 ea PO BID Rx Instructions: 4 ounce BID clopidogrel 75 mg tablet 75 mg PO DAILY Rx Instructions: for CVA prophylaxis aspirin 81 mg Tablet,Chewable 81 mg PO QDAY Rx Instructions: for CVA prophylaxis fluticasone propionate [Flonase Allergy Relief] 50 mcg/actuation [place],Suspension 2 spray INTRANASAL QDAY Rx Instructions: administer into each nostril docusate sodium 50 mg Capsule 250 mg PO BID Rx Instructions: Liquid may be used. Hold for loose stools. cholecalciferol (vitamin D3) 125 mcg (5,000 unit) Tablet 125 mcg PO QDAY Clementina-Sofiya 0.8 mg Tablet 1 tab PO QDAY pantoprazole 40 mg tablet,delayed release (DR/EC) 40 mg PO QAM Rx Instructions: for GERD atorvastatin 80 mg tablet 80 mg PO HS guaifenesin 100 mg/5 mL Liquid 200 mg PO [id number] PRN (Reason: Cough) Held clonidine HCl 0.1 mg Tablet 0.1 mg PO BID Hold Instructions: Resume on 05/18/24. F/up with PCP for considering restart of clonidine Rx Instructions: hold for Sbp<100, DBP<60 Discontinued Fleet Enema 19-7 gram/118 mL Enema 118 ml SD Q72H PRN (Reason: Constipation) Rx Instructions: if mom/dulcolax supp ineffective glycopyrrolate 1 mg Tablet 1 mg PO BID Rx Instructions: for Excessive secretions. furosemide 40 mg Tablet 40 mg PO QAM Rx Instructions: for HTN Hold if sbp<110 or dbp<60 carvedilol 6.25 mg Tablet 6.25 mg PO BID Rx Instructions: must administer with a meal/food. Hold for sbp<110 or dbp<60 losartan 25 mg Tablet 25 mg PO QDAY Rx Instructions: Hold for sbp<110 or dbp<60 insulin glargine [Lantus Solostar U-100 Insulin] 100 unit/mL (3 mL) Insulin Pen 15 unit SUBCUT QPM glucagon 1 mg Kit 1 mg subcut Q15MIN PRN (Reason: Hypoglycemia) Rx Instructions: for BS<60. Recheck BS per facility protocol. Max 2 doses. lactulose 20 gram/30 mL Solution 20 g PO QPM Rx Instructions: for constipation insulin lispro [Humalog U-100 Insulin] 100 unit/mL Solution 4 unit SUBCUT TIDWMEAL Rx Instructions: With meals. Hold for BS<100.Notify MDif BS<70 or >400. insulin regular human 100 unit/mL (3 mL) Insulin Pen 1 sliding scale dose SUBCUT USEASDIRECTD Rx Instructions: if 0-150=0;151-200=2;201-250=4;251-300=6;301-350=8;351-400=10;401+=12. before meals and at bedtime.Notify md if BS<70 or >400. magnesium hydroxide [Milk of Magnesia] 400 mg/5 mL Suspension 30 ml PO Q72H PRN (Reason: Constipation) Rx Instructions: prn if no bm for 3 consecutive days. Referrals: Jackie Gaytan [employer]PORATE SALES MANAGER [Primary Care Provider] - Patient/Caregiver Discharge Instructions Education Materials: Preventing Surgical Site Infections Print Language: Mozambican Activity Restrictions/Additional Instructions: May shower. Follow-up with Dr Starks in 2 weeks, please call [phone] for an appointment. Stand Alone Forms: Keira Award Info., Patient Portal Info Letter Discharge Order Discharge Orders: Discharge (Routine); Ordered 04/19/24 Ordered By: Nisreen Salgado Quality Discharge Quality Measures VTE prophylaxis
--- NOTE | 2024-04-19 10:19 | PC.SS ---
SS has spoken to James at [email or web address] Application [phone] to setup [facility] transportation and requested [facility]. SS has informed Lizet at [facility], , bedside nurse, Capri, and , Brandi. SS has sent patient's facesheet and ambulance form to [facility] using [employer]. Ref# [id number]. SAMANTHA has received call from Yoselin at [facility] who states she has been contacted by [facility] and transportation has been set for 2pm.
--- NOTE | 2024-04-19 10:28 | ESPR_ITS ---
Documentation for date of: 04/19/24 Subjective Subjective Interval history: 53 y/o M with PMHx significant for diabetes mellitus, hypertension, diabetic/hypertensive nephrosclerosis, ESRD on dialysis M/W/F, and and CVA w/right sided residual deficits [facility] for chief complaint of abdominal pain x 3 days. Patient endorses that the pain was diffuse and generalized throughout his abdomen. He rated it as an 8 out of 10 in severity diffuse pain. The pain was not associated with food. Patient endorses that he did not any eat anything out of the ordinary. He also endorses that he has not had any urine for the past 3 days and he has not produced stool over the past 5 days. Patient denies headache, fever, chills, chest pain, palpitation, shortness of breath, dizziness, nausea, vomiting, or diarrhea. CT A/P showed acute appendicitis with localized rupture. Patient was admitted for management of sepsis secondary to ruptured acute appendicitis. In ED labs significant for bicarb 30.3, BUN 60, creatinine 6.6, eGFR 9, procalcitonin 21.8. Patient given 1 L IV bolus, vancomycin and Zosyn. Patient underwent laparoscopic appendectomy which revealed diffuse peritonitis, patient underwent abdominal washout. Procedures well-tolerated. Patient had some episodes of hypotension, was transferred to telemetry for further monitoring. Nephrology consulted for ESRD requiring dialysis M// schedule. Patient seen and examined at bedside. Patient appears mildly uncomfortable, mild abdominal tenderness. Patient complains of persistent hiccups. Labs today showed potassium 5.6, BUN 70, creatinine 7.3, eGFR 8. Plan for dialysis today as per patient's regular schedule. 04/13: Patient seen and examined at bedside. Patient appears mildly uncomfortable, complains of constipation, discussed with primary team. Patient denies hiccups. Currently on diabetic clear liquid diet, tolerating well. BUN 42, creatinine 5.4, eGFR 12. Plan for dialysis tomorrow as per patient's regular schedule. 04/14: Patient seen and examined at bedside. Patient appears mildly comfortable. Patient was diagnosed with SBO on imaging by primary team, has NG tube placed with intermittent suction, received Gastrografin for small bowel follow-through. Plan for hemodialysis today as per patient's regular schedule. 04/15: Patient seen and examined at bedside. Patient appeared more comfortable than yesterday, reports having small bowel movement overnight. Patient still has NG tube. BUN 42, creatinine 5.9, EGFR 11. No plan for dialysis today, will keep patient's regular schedule. 04/16/2024 patient currently seen in telemetry. Family at bedside. Resting comfortably. Good bowel sounds. He still complaining of constipation. Spoke to Dr. Rondon-will do manual disimpaction. Blood sugar 209. Blood pressure 116/90 C85, heart rate 95, afebrile. WBC 10.9, hemoglobin 9.8, platelets 377. Sodium 140, potassium 4.4, BUN 61, creatinine 7.3, glucose 227, LFTs normal, albumin 4.3. Will DC NG tube. Patient will get dialysis tomorrow. Hopefully can be discharged tomorrow if stable. 04/19/2024 patient currently seen in dialysis. Feeling much better. Tolerating p.o. intake. NG tube was discontinued. Renal hannon stable for discharge back to rehab. Review of Systems Review of Systems Narrative Review of Systems: CONSTITUTIONAL: Patient denies any fever, chills. HEENT: Denies any visual disturbances or hearing problems. CARDIOVASCULAR: Patient denies any chest pain, shortness of breath, swelling in the lower extremities. PULMONARY: Patient denies any shortness of breath, cough. GASTROINTESTINAL: Constipation abdominal pain better GENITOURINARY: Patient denies any urinary symptoms of burning or frequency or hematuria, denies any form in the urine. SKIN: Denies any rash. MUSCULOSKELETAL: Complaining of gait imbalance NEUROLOGICAL: Has right hemiparesis from previous stroke Exam Vital Signs Temp Pulse Resp BP Pulse Ox O2 Del Method O2 Flow Rate 36.6 C 91 19 97/64 96 Room Air 4 04/19/24 10:24 04/19/24 10:15 04/19/24 10:24 04/19/24 10:15 04/19/24 10:24 04/19/24 08:00 04/15/24 23:57 Narrative Exam PE: Gen: Well-developed and well-nourished. On dialysis HEENT: NCAT, PERRLA, EOMI, MMM, anicteric conjunctivae. CVS: normal S1 and S2. RRR. No M/R/G. Resp: CTA B/L. No rhonchi, rales, crackles or wheezing. Abd: soft, non-distended. Bowel sounds present. Laparoscopic procedure incisions, clean, nonerythematous. Minimal tenderness. MSK: Good ROM in LUE & LLE. No edema or rash. Neuro: CN II-XII grossly intact. Strength 5/5 in LUE & LLE. Alert and oriented x3. Right-sided paralysis secondary to previous stroke. Psych: appropriate mood and affect. Objective Labs 04/19/24 04:35 04/19/24 04:35 Labs: Laboratory Results - last 24 hr 04/19/24 04:35 WBC 13.6 H RBC 2.86 L Hgb 9.2 L Hct 28.9 L MCV 101 H MCH 32.2 MCHC 31.8 RDW Std Deviation 50.1 H Plt Count 368 Neut % (Auto) 72 Lymph % (Auto) 12 [place] % (Auto) 8 Eos % (Auto) 4 Baso % (Auto) 0 Neut # (Auto) 9.7 H Lymph # (Auto) 1.6 [place] # (Auto) 1.1 H Eos # (Auto) 0.5 Baso # (Auto) 0.1 Immature Gran # (Auto) 0.56 H Absolute Nucleated RBC 0.00 Immature Gran % 4 H Nucleated RBC % 0 Sodium 135 L Potassium 4.4 D Chloride 96 L Carbon Dioxide 28.4 Anion Gap 11 BUN 46 H Creatinine 6.8 H* D Estim Creat Clear Calc 11.5 L eGFR 9 L* BUN/Creatinine Ratio 7 L Glucose 77 Calculated Osmolality 281 Calcium 9.0 Corrected Calcium 9.2 Total Bilirubin 0.6 AST 87 H ALT 54 H Alkaline Phosphatase 198 H D Total Protein 6.7 Albumin 3.8 Globulin 2.9 Albumin/Globulin Ratio 1.3 Assessment & Plan Assessment and plan (1) Acute appendicitis with perforation and generalized peritonitis, without abscess or gangrene: Status: Acute Additional Assessment & Plan Additional Plan: 1)?ESRD ESRD secondary to hypertensive nephrosclerosis. patient goes to dialysis unit Wednesday, Wednesday, Wednesday Patient currently seen on dialysis. Tolerating dialysis without any problems. Hemodialysis for 3 hours, 2K, ultrafiltration 2-3 L, Epogen 6000, no heparin ordered. Plan of care discussed with the dialysis nurse. Please see dialysis flowsheet for further details. (2) hypertension Blood pressure meds adjusted by primary team-blood pressure better (3) with rupture acute appendicitis ?Status:?Acute ? ? ? Assessment and plan: S/p appendectomy (4) Anemia: ?Status:?Acute ? ? ? Assessment and plan: Patient noted to have anemia secondary to renal failure. Epogen with dialysis (5) Renal osteodystrophy: ?Status:?Acute ? ? ? Assessment and plan: Patient noted to have ? hyperphosphatemia secondary to renal failure. Binders (6) hyperlipidemia: ?Status:?Acute ? ? ? Assessment and plan: Continue Lipitor 7) right hemiparesis secondary to stroke: ?Status:?Chronic ? ? ? Assessment and plan: Continue with aspirin, lipitor Plan of care discussed with primary team Quality - progress note Quality Measures Quality Measures: VTE prophylaxis Reason for Continued Stay Reason for Continued Stay: further monitoring
[2024-04-19] MEDS: ACETAMINOPHEN 325 MG TABLET 650 MG PO (12:10)
--- NOTE | 2024-04-19 16:44 | PC.NURSE ---
1515 PATIENT DISCHARGE VIA AMBULANCE BACK TO [facility]. REPORT CALLED TO VICENTE HAZEL
--- NOTE | 2024-04-19 17:02 | PC.NURSE ---
1430 PRESSURE DRSGS TO AV SHUNT RT ARM REMOVED. LIGHT DRSG APPLIED TO A COUPLE OF AREAS THAT SEEMED TO WANT TO BLEED
== END 2024-04-19 15:25 | disposition skilled nursing facility (03) | DRG 710 ==
LOC: SERX 14:34 → SERHOLD 16:07 → S3NX 18:25 → S2NX 04-12 11:32
PROVIDERS: Internal Medicine; Student in an Organized Health Care Education/Training Program; Surgery; Admitting Provider Internal Medicine; Emergency Provider Emergency Medicine; PCP Nurse Practitioner Gerontology; Visit Provider Internal Medicine
PROC: 0DTJ4ZZ Resection of Appendix, Percutaneous Endoscopic Approach (ICD-10-PCS; CPT 44970; principal; 2024-04-11 14:30)
DX: A40.8 Other streptococcal sepsis (principal); K35.201 Acute appendicitis with generalized peritonitis, with perforation, without abscess; N18.6 End stage renal disease; E11.22 Type 2 diabetes mellitus with diabetic chronic kidney disease; I69.351 Hemiplegia and hemiparesis following cerebral infarction affecting right dominant side; Y95 Nosocomial condition; J18.9 Pneumonia, unspecified organism; Z99.2 Dependence on renal dialysis; K56.600 Partial intestinal obstruction, unspecified as to cause; D63.1 Anemia in chronic kidney disease; N25.0 Renal osteodystrophy; E83.39 Other disorders of phosphorus metabolism; E78.5 Hyperlipidemia, unspecified; R06.6 Hiccough; I12.0 Hypertensive chronic kidney disease with stage 5 chronic kidney disease or end stage renal disease; E11.649 Type 2 diabetes mellitus with hypoglycemia without coma
CPT/HCPCS: 36415; 71045; 74018; 74176; 74250; 76705; 80053; 80069; 80074; 80076; 81001; 83036; 83605; 83735; 84145; 85025; 85610; 85730; 86706; 87040; 87077; 87081; 87086; 87186; 87811; 96361; 96365; 97162; 99285; A4217; A4649; J0131; J0360; J1580; J1643; J1815; J2270; J2405; J2470; J2543; J2704; J3010; J3370; J3490; J7040; P9047; Q0161; Q5105; Q9963; S8037; 74181; A9270; J1644

== ENCOUNTER 2024-04-22 19:01 | Emergency (ER) | payer MEDICAID, SELFPAY ==
[2024-04-22 19:03] VITALS: BP 160/77; PULSE 98; RESP 16; TEMP 36.8; O2SAT 98
[2024-04-22 19:24] VITALS: BMI 26.6
--- NOTE | 2024-04-22 19:33 | EDNOTE_ITS ---
ED General RME/HPI General Chief complaint: Urogenital-Male Stated complaint: URINARY RETENTION Time Seen by Provider: 04/22/24 19:21 Arrival date/time: 04/22/24 19:01 RME / HPI RME / HPI narrative: 53-year-old male patient with significant history of CVA with right-sided paralysis, end-stage renal disease, recent appendectomy, was brought in by EMS from residential regarding urinary retention. According to the patient the last time he urinated was 2 days ago. The last time he had a bowel movement was also 3 days ago. Patient had hemodialysis yesterday. Patient denies any fever denies any vomiting denies any other complaints Related Data Home Medications ?Medication ?Instructions ?Recorded ?Confirmed cyclobenzaprine 5 mg tablet 5 mg PO HS 07/25/22 04/12/24 ipratropium 20 mcg-albuterol 100 1 puff inhalation BID 07/25/22 04/12/24 mcg/actuation mist for inhalation (Combivent Respimat) lorazepam 1 mg tablet 1 mg PO HS 07/25/22 04/11/24 clonidine HCl 0.1 mg tablet 0.1 mg PO BID 12/30/22 04/12/24 acetaminophen 325 mg tablet 650 mg PO Q8HR PRN Pain, Mild 01/07/23 04/12/24 (Tylenol) bisacodyl 10 mg rectal suppository 10 mg MT Q72H PRN Constipation 01/07/23 04/12/24 (Dulcolax (bisacodyl)) sennosides 8.6 mg tablet (Senna 1 tab PO QPM 01/07/23 04/12/24 Lax) nutritional supplements 1 ea PO BID 04/11/24 04/11/24 aspirin 81 mg chewable tablet 81 mg PO QDAY 04/12/24 04/12/24 atorvastatin 80 mg tablet 80 mg PO HS 04/12/24 04/12/24 cholecalciferol (vitamin D3) 125 125 mcg PO QDAY 04/12/24 04/12/24 mcg (5,000 unit) tablet clopidogrel 75 mg tablet 75 mg PO DAILY 04/12/24 04/12/24 docusate sodium 50 mg capsule 250 mg PO BID 04/12/24 04/12/24 fluticasone propionate 50 2 spray intranasal QDAY 04/12/24 04/12/24 mcg/actuation nasal spray,suspension (Flonase Allergy Relief) guaifenesin 100 mg/5 mL oral liquid 200 mg PO [id number] PRN Cough 04/12/24 04/12/24 pantoprazole 40 mg tablet,delayed 40 mg PO QAM 04/12/24 04/12/24 release vitamin B complex-vitamin C-folic 1 tab PO QDAY 04/12/24 04/12/24 acid 0.8 mg tablet (Clementina-Sofiya) Previous Rx's ?Medication ?Instructions ?Recorded calcium acetate(phosphat bind) 667 667 mg PO TIDWM #90 caps 08/20/21 mg capsule ciprofloxacin HCl 500 mg tablet 500 mg PO BID 7 days #14 tabs 04/18/24 glycopyrrolate 1 mg tablet 1 mg PO BID 1 month #60 tabs 04/19/24 magnesium hydroxide 400 mg/5 mL 5 ml PO QDAY PRN constipation 1 04/19/24 oral suspension (Milk of Magnesia) month #3,780 mL Allergies Allergy/AdvReac Type Severity Reaction Status Date / Time No Known Allergies Allergy Verified 04/11/24 22:46 Review of Systems Review of Systems Narrative Review of Systems: Review of system reviewed and within normal limits except mentioned in HPI ED Exam Narrative Physical exam: VITAL SIGNS: Reviewed. GENERAL APPEARANCE: Alert and interactive, follows commands, no acute distress, HEAD AND FACE: Non-traumatic. ENT: PERRL, pink conjunctivitis, eyelid no trauma, Mucous membrane moist. NECK: Supple, nontender, no nuchal rigidity. CHEST: No tenderness, no crepitus, no paradoxical movement, no retractions. LUNGS: Clear, well ventilated, symmetric, no rales, no wheezing, no ronchi, no stridor, good breath sounds bilaterally. HEART: Regular rate, regular rhythm, no murmur, no gallops. ABDOMEN: Soft, positive bowel sounds, nondistended, no guarding, nontender, no rebound, no masses, RECTAL: Deferred. GENITAL: Suprapubic tenderness and distention NEUROLOGICAL: Gross motor function intact sensory function intact, Appropriate for age. MUSCULOSKELETAL: low back nontender, full range of motion. EXTREMITIES: Nontender, full range of motion. SKIN: Color pink, dry, no rash, no lacerations, no abrasions, no contusions. LYMPHATICS: Deferred. Course Quality Measures none Orders Category Date Time Status Caal to [place] Routine Care 04/22/24 19:32 Ordered UA, C/S IF [Urinalysis, C/S if Indicated] Stat Lab 04/22/24 20:15 Completed Ibuprofen Tab [Motrin Tab] Med 04/22/24 21:10 Discontinued 800 mg PO X1 ONE Magnesium Citrate Liqd [Citrate of Magnesia Liqd] Med 04/22/24 19:32 Discontinued 300 ml PO X1 ONE Vital Signs Vital signs: Vital Signs Temperature 98.3 F 04/22/24 19:03 Pulse Rate 98 04/22/24 19:03 Respiratory Rate 16 04/22/24 19:03 Blood Pressure 160/77 H 04/22/24 19:03 Pulse Oximetry (%) 98 04/22/24 19:03 Oxygen Delivery Method Room Air 04/22/24 19:03 MDM Patient data External records reviewed:: None Clinical information provided by:: patient and EMS Social determinants that could affect healthcare access:: none Patient has the following chronic illnesses:: ESRD on hemodialysis, CVA with right-sided paralysis How is presenting disease/condition affected by chronic disease/condition?: exacerbated by Evaluation data The following diagnostics were reviewed and interpreted by me:: lab results Lab and/or radiology exams considered but not ordered:: None Interpretation Summary: Urinalysis no UTI Medications Medications considered but not ordered:: None Medication administrations:: Medication Administration History Discontinued Medications Ibuprofen (Ibuprofen Tab 400 Mg Tablet) 800 mg PO X1 ONE Stop: 04/22/24 21:11 Magnesium Citrate (Magnesium Citrate 300 Ml Btl) 300 ml PO X1 ONE Stop: 04/22/24 19:33 Last Admin: 04/22/24 20:32 Dose: 300 ml Documented By: TRENT Ibuprofen and magnesium citrate Consultations Consultation(s) initiated? (list below): No Diagnosis Differential Diagnosis ED Complaint MDM: Acute urinary retention UTI, constipation Most likely diagnosis given after review of the tests above:: Acute urinary retention, constipation Admission Indicated Admission indicated?: not indicated Explain why admission is indicated or not indicated:: Stable Admission Request Was there a request for admission?: No Disposition Plan Disposition Plan: Discharge Discharge Attestation Discharge Attestation: The patient was given an opportunity to ask questions and understood the discharge instructions. Discharge instructions specifically effects, indications for sooner follow up or return to the emergency department, and the expected course of current diagnosis. Patient condition: Stable Medical Decision Making MDM Narrative MDM Narrative: 53-year-old male patient with significant history of CVA with right-sided paralysis, end-stage renal disease, recent appendectomy, was brought in by EMS from residential regarding urinary retention. According to the patient the last time he urinated was 2 days ago. The last time he had a bowel movement was also 3 days ago. Patient had hemodialysis yesterday. Patient denies any fever denies any vomiting denies any other complaints Caal catheter was started and was able to remove 500 cc of clear urine. Urinalysis no UTI patient will be discharged home on Caal catheter. Patient appears nontoxic and hemodynamically stable. Patient discharged home and instructed to follow-up with primary care provider in 24 to 48 hours. Instructed to return to the emergency department immediately if worsening of symptoms Differential Diagnosis Differential Diagnosis: Acute urinary retention UTI, constipation Lab Data Labs: Lab Results 04/22/24 Range/Units 20:15 Ur Collection Type Catheter Urine Color Lt-Yellow (Lt Yel-Yel) Urine Clarity Clear (Clear/Hazy) Urine pH 8.0 H (5.0-7.0) Ur Specific [place] 1.009 (1.001-1.035) Urine Protein 3+ A (Neg - Trace) Urine Glucose (UA) 1+ A (Negative) Urine Ketones Negative (Negative) Urine Blood Negative (Negative) Urine Nitrite Negative (Negative) Urine Bilirubin Negative (Negative) Urine Urobilinogen (Auto) Negative (0.0-1.0) mg/dL Ur Leukocyte Esterase Negative (Negative) Urine RBC 2 (0-3) /hpf Urine WBC 1 (0-5) /hpf Ur Squamous Epith Cells 0 (0-5) /hpf Urine Bacteria None (None) Ur Culture Indicated? Not Indicated Discharge Plan Plan Patient Disposition: HOME (Self Care) Disposition Comment: stable Prescriptions/Referrals Prescriptions/Med Rec: No Action calcium acetate(phosphat bind) 667 mg Capsule 667 mg PO TIDWM Qty: 90 0RF bisacodyl [Dulcolax (bisacodyl)] 10 mg Suppository 10 mg MT Q72H PRN (Reason: Constipation) Rx Instructions: if mom ineffective sennosides [Senna Lax] 8.6 mg tablet 1 tab PO QPM acetaminophen [Tylenol] 325 mg Tablet 650 mg PO Q8HR PRN (Reason: Pain, Mild) lorazepam 1 mg Tablet 1 mg PO HS cyclobenzaprine 5 mg Tablet 5 mg PO HS Rx Instructions: for muscle spasm Combivent Respimat 20-100 mcg/actuation Mist 1 puff INHALATION BID clonidine HCl 0.1 mg Tablet 0.1 mg PO BID Hold Instructions: Resume on 05/18/24. F/up with PCP for considering restart of clonidine Rx Instructions: hold for Sbp<100, DBP<60 nutritional supplements Liquid 1 ea PO BID Rx Instructions: 4 ounce BID clopidogrel 75 mg tablet 75 mg PO DAILY Rx Instructions: for CVA prophylaxis aspirin 81 mg Tablet,Chewable 81 mg PO QDAY Rx Instructions: for CVA prophylaxis fluticasone propionate [Flonase Allergy Relief] 50 mcg/actuation [place],Suspension 2 spray INTRANASAL QDAY Rx Instructions: administer into each nostril docusate sodium 50 mg Capsule 250 mg PO BID Rx Instructions: Liquid may be used. Hold for loose stools. cholecalciferol (vitamin D3) 125 mcg (5,000 unit) Tablet 125 mcg PO QDAY Clementina-Sofiya 0.8 mg Tablet 1 tab PO QDAY pantoprazole 40 mg tablet,delayed release (DR/EC) 40 mg PO QAM Rx Instructions: for GERD atorvastatin 80 mg tablet 80 mg PO HS guaifenesin 100 mg/5 mL Liquid 200 mg PO [id number] PRN (Reason: Cough) ciprofloxacin HCl 500 mg tablet 500 mg PO BID 7 Days Qty: 14 0RF magnesium hydroxide [Milk of Magnesia] 400 mg/5 mL suspension 5 ml PO QDAY PRN (Reason: constipation) 30 Days Qty: 3780 1RF glycopyrrolate 1 mg tablet 1 mg PO BID 30 Days Qty: 60 0RF Referrals: No Primary/Family,Physician [Primary Care Provider] - In 1 week Problem List Clinical Impression: Acute urinary retention, Constipation Patient/Caregiver Discharge Instructions Discharge Activity: activity as tolerated Education Materials: ED Urinary Retention, Male Additional Instructions: Thank you for the opportunity for serving you today. You are stable for discharged . You are advised to: Follow-up with your PCP in 1 to 2 days and asked for referral to urologist Return to ED for worsening of symptoms Print Language: Sinhala Stand Alone Forms: Keira Award Info., Patient Portal Info Letter PA/CORRESPONDENCE COORDINATOR Supervising Physician PA/CORRESPONDENCE COORDINATOR Supervising Physician: MD teri
[2024-04-22 20:11] VITALS: BP 136/67; PULSE 94; RESP 16; TEMP 37.2; O2SAT 97
[2024-04-22 20:32] LABS: Collection Type, Urine Catheter; Squamous Epithelial Cell,Urine 0 /hpf (0-5)
[2024-04-22] MEDS: MAGNESIUM CITRATE 300 ML BTL PO (20:32)
[2024-04-22 20:46] LABS: Bilirubin,Urine Negative (Negative); Blood,Urine Negative (Negative); Clarity,Urine Clear (Clear/Hazy); Color,Urine Lt-Yellow (Lt Yel-Yel); Culture Indicated,Urine Not Indicated; Glucose, Urine 1+ (Negative); Ketones,Urine Negative (Negative); Leukocyte Esterase,Urine Negative (Negative); Nitrite,Urine Negative (Negative); Protein,Urine 3+ (Neg - Trace); RBC,Urine 2 /hpf (0-3); Specific Gravity,Urine 1.009 (1.001-1.035); Urobilinogen,Urine Negative mg/dL (0.0-1.0); WBC,Urine 1 /hpf (0-5)
[2024-04-22] MEDS: IBUPROFEN TAB 400 MG TABLET 800 MG PO (21:33)
[2024-04-22 22:50] VITALS: BP 152/81; PULSE 86; RESP 18; TEMP 36.9; O2SAT 96
== END 2024-04-22 23:05 | disposition home or self-care (01) ==
PROVIDERS: Nurse Practitioner Family; Emergency Provider Emergency Medicine
DX: R33.9 Retention of urine, unspecified (principal); K59.00 Constipation, unspecified
CPT/HCPCS: 51702; 81001; 99283; A9270

== ENCOUNTER → 2024-06-26 | Outpatient (BNVA) | payer MEDICAID, SELFPAY | END | disposition home or self-care (01) | PROVIDERS: PCP Family Medicine; Referring Provider Family Medicine; Visit Provider Urology | DX: N40.1 Benign prostatic hyperplasia with lower urinary tract symptoms (principal); N13.8 Other obstructive and reflux uropathy; I13.2 Hypertensive heart and chronic kidney disease with heart failure and with stage 5 chronic kidney disease, or end stage renal disease; E11.22 Type 2 diabetes mellitus with diabetic chronic kidney disease; N18.6 End stage renal disease; I50.22 Chronic systolic (congestive) heart failure; Z99.2 Dependence on renal dialysis; I69.351 Hemiplegia and hemiparesis following cerebral infarction affecting right dominant side; E78.5 Hyperlipidemia, unspecified; Z99.3 Dependence on wheelchair | CPT/HCPCS: 99212; G0463 ==

== ENCOUNTER 2024-08-02 11:26 | Emergency (ER) | payer MEDICAID, SELFPAY ==
[2024-08-02 11:28] VITALS: BP 155/77; PULSE 100; RESP 18; TEMP 36.8; O2SAT 97
[2024-08-02 11:49] VITALS: PULSE 92; RESP 16; O2SAT 98
--- NOTE | 2024-08-02 12:03 | PD.EDADULT ---
ED General RME/HPI General Chief complaint: Neck Pain/Injury Stated complaint: neck swelling Time Seen by Provider: 08/02/24 12:00 Arrival date/time: 08/02/24 11:26 RME / HPI RME / HPI narrative: DR. BARBOZA MAIN ED EVALUATION: This section includes all my notes and documentations, including HPI, PE, and ED course.? Yaakov Barboza MD HPI: 54 year old male with past medical history significant for CVA, renal failure, dialysis shunt on the right upper arm presents to the Emergency Department [facility]IB [facility] with complaints of neck swelling and pain, has a clump size bump mass. Symptoms are moderate. He states is has been there only 3 days, last week he was normal. Denies any fevers, chills, shortness of breath, nausea, vomiting, or other symptoms at this time. ROS: All negative except as documented in HPI. Physical Exam: General:? Alert and oriented.? No acute distress when remaining still.? Right arm dialysis fistula in place. Eyes:? Conjunctivae and lids clear. ENT:? No nasal congestion.? ? Neck:? [place] sized mass to the anterior left neck area, no obvious fluctuancy. Heart:? RRR. Lungs:? No respiratory distress.? Good air movement.? No rhonchi, wheezing, rales.? Abdomen:? Soft and nontender.? Legs:? No clubbing, cyanosis, edema. Skin:? Warm and dry.? Neuro:? Alert and oriented X 3.? I reviewed all diagnostic test results. My review of the neck CT report is: Large fluid containing mass in the soft tissue left lower neck 5.0 x 2.7 x 4.0 cm. Differential would include necrotic soft tissue tumor mass, abscess, clinical correlation advised. Blood tests unremarkable. At this point, diagnoses include neck tumor versus abscess. Treatment here included Amoxicillin/Clavulanate Potassium I discussed the case with our surgeon.? About the presentation and exam and diagnostics and treatments here.? And possible need of further care in the hospital.? Recommended a trial of ABX and outpatient care. Based on my best medical judgment, made decision no further evaluation or treatment indicated at this time.? Patient understands and agrees to the discharge instructions customized and printed, see below. Discharge Instructions from Dr. Barboza printed for you: 1. After evaluation, including CT scan and exam by Dr. Wheeler (our surgeon), exact cause of your neck mass was not determined. But possibilities include infection and tumor. 2. He recommended Augmentin twice daily for 14 days for the possible infection. 3. Apply warm compress throughout the day. 4. See Dr. Wheeler on 08/04/24 for recheck and further care. The mass may need to be incised and drained. 5. Seek immediate medical care with fever, spreading redness despite taking Augmentin for 24 hours, or with any concerns. Yaakov Barboza MD Related Data Home Medications ?Medication ?Instructions ?Recorded ?Confirmed cyclobenzaprine 5 mg tablet 5 mg PO HS 07/25/22 06/26/24 ipratropium 20 mcg-albuterol 100 1 puff inhalation BID 07/25/22 06/26/24 mcg/actuation mist for inhalation (Combivent Respimat) lorazepam 1 mg tablet 1 mg PO HS 07/25/22 06/26/24 clonidine HCl 0.1 mg tablet 0.1 mg PO BID 12/30/22 06/26/24 Held on 04/18/24. Instructions: Resume on 05/18/24. F/up with PCP for considering restart of clonidine acetaminophen 325 mg tablet 650 mg PO Q8HR PRN Pain, Mild 01/07/23 06/26/24 (Tylenol) bisacodyl 10 mg rectal suppository 10 mg AR Q72H PRN Constipation 01/07/23 06/26/24 (Dulcolax (bisacodyl)) sennosides 8.6 mg tablet (Senna 1 tab PO QPM 01/07/23 06/26/24 Lax) nutritional supplements 1 ea PO BID 04/11/24 06/26/24 aspirin 81 mg chewable tablet 81 mg PO QDAY 04/12/24 06/26/24 atorvastatin 80 mg tablet 80 mg PO HS 04/12/24 06/26/24 cholecalciferol (vitamin D3) 125 125 mcg PO QDAY 04/12/24 06/26/24 mcg (5,000 unit) tablet clopidogrel 75 mg tablet 75 mg PO DAILY 04/12/24 06/26/24 docusate sodium 50 mg capsule 250 mg PO BID 04/12/24 06/26/24 fluticasone propionate 50 2 spray intranasal QDAY 04/12/24 06/26/24 mcg/actuation nasal spray,suspension (Flonase Allergy Relief) guaifenesin 100 mg/5 mL oral liquid 200 mg PO [id number] PRN Cough 04/12/24 06/26/24 pantoprazole 40 mg tablet,delayed 40 mg PO QAM 04/12/24 06/26/24 release vitamin B complex-vitamin C-folic 1 tab PO QDAY 04/12/24 06/26/24 acid 0.8 mg tablet (Clementina-Sofiya) tamsulosin 0.4 mg capsule 0.4 mg PO QHS 06/26/24 06/26/24 Previous Rx's ?Medication ?Instructions ?Recorded calcium acetate(phosphat bind) 667 667 mg PO TIDWM #90 caps 08/20/21 mg capsule magnesium hydroxide 400 mg/5 mL 5 ml PO QDAY PRN constipation 1 04/19/24 oral suspension (Milk of Magnesia) month #3,780 mL amoxicillin 875 mg-potassium 1 tab PO BID #28 tabs 08/02/24 clavulanate 125 mg tablet Allergies Allergy/AdvReac Type Severity Reaction Status Date / Time No Known Allergies Allergy Verified 08/02/24 11:55 Course Quality Measures none Orders Category Date Time Status CT Screening NOW Care 08/02/24 12:08 Completed Saline [Insert IV] NOW Care 08/02/24 12:07 Completed Consult to General Surgery Stat Cons 08/02/24 16:[address] soft tissue neck w con Stat Exams 08/02/24 12:07 Completed CBC Stat Lab 08/02/24 12:40 Completed CMP [Comprehensive Metabolic Panel] Stat Lab 08/02/24 12:40 Completed CRP [C-Reactive Protein] Stat Lab 08/02/24 12:40 Completed ESR [Sed Rate (ESR)] Stat Lab 08/02/24 12:40 Completed Lactate (Lactic Acid) Stat Lab 08/02/24 12:40 Completed Magnesium Stat Lab 08/02/24 12:40 Completed Amoxicillin/Pot Clav 875 [Augmentin 875] Med 08/02/24 17:14 Discontinued 1 tab PO X1 ONE Vital Signs Vital signs: Vital Signs Temperature 98.2 F 08/02/24 11:28 Pulse Rate 100 08/02/24 11:28 Respiratory Rate 18 08/02/24 11:28 Blood Pressure 155/77 H 08/02/24 11:28 Pulse Oximetry (%) 97 08/02/24 11:28 Oxygen Delivery Method Room Air 08/02/24 11:28 MDM Patient data External records reviewed:: EMS form Clinical information provided by:: patient and EMS Social determinants that could affect healthcare access:: none Patient has the following chronic illnesses:: CVA, renal failure, dialysis shunt on the right upper arm How is presenting disease/condition affected by chronic disease/condition?: uneffected by Evaluation data The following diagnostics were reviewed and interpreted by me:: lab results and radiology exam(s) Lab and/or radiology exams considered but not ordered:: none Interpretation Summary: Neck mass Medications Medications considered but not ordered:: none Medication administrations:: Medication Administration History Discontinued Medications Amoxicillin/Clavulanate Potassium (Amoxicillin/Pot Clav 875 Tablet) 1 tab PO X1 ONE Stop: 08/02/24 17:15 Last Admin: 08/02/24 18:30 Dose: 1 tab Documented By: DINH Amoxicillin/Clavulanate Potassium Consultations Consultation(s) initiated? (list below): Yes Consultation #1 (Physician, Specialty, Details): I discussed the case with our surgeon.? About the presentation and exam and diagnostics and treatments here.? And possible need of further care in the hospital.? Recommended a trial of ABX and outpatient care. Diagnosis Differential Diagnosis ED Complaint MDM: abscess, cancer, lymph node Most likely diagnosis given after review of the tests above:: Abscess versus tumor Admission Indicated Admission indicated?: not indicated Explain why admission is indicated or not indicated:: I discussed the case with our surgeon.? About the presentation and exam and diagnostics and treatments here.? And possible need of further care in the hospital.? Recommended a trial of ABX and outpatient care. Admission Request Was there a request for admission?: No Disposition Plan Disposition Plan: Discharge Discharge Attestation Discharge Attestation: The patient and all family members were given an opportunity to ask questions and understood the discharge instructions. Discharge instructions specifically effects, indications for sooner follow up or return to the emergency department, and the expected course of current diagnosis. Patient condition: Stable Medical Decision Making MDM Narrative MDM Narrative: Mallory Gonzalez am scribing for and in the presence of Dr. Barboza. Differential Diagnosis Differential Diagnosis: abscess, cancer, lymph node Lab Data 08/02/24 12:40 08/02/24 12:40 Labs: Lab Results 08/02/24 Range/Units 12:40 WBC 11.3 H (3.8-10.6) Thou/mm3 RBC 4.22 L (4.50-5.90) Miln/mm3 Hgb 12.5 L (13.5-16.0) g/dL Hct 38.5 L (41.0-53.0) % MCV 91 (80-100) fL MCH 29.6 (25.0-35.0) pg MCHC 32.5 (31.0-37.0) g/dl RDW Std Deviation 48.3 H (35.1-43.9) fL Plt Count 316 (140-440) Thou/mm3 Neut % (Auto) 81 H (37-80) % Lymph % (Auto) 9 L (10-50) % Worth % (Auto) 8 (0-12) % Eos % (Auto) 2 (0-10) % Baso % (Auto) 1 (0-2.5) % Neut # (Auto) 9.2 H (1.8-7.7) Thou/mm3 Lymph # (Auto) 1.0 (1.0-4.8) Thou/mm3 Worth # (Auto) 0.9 H (0.0-0.8) Thou/mm3 Eos # (Auto) 0.2 (0.0-0.5) Thou/mm3 Baso # (Auto) 0.1 (0.0-0.2) Thou/mm3 Immature Gran # (Auto) 0.05 H (0.00-0.00) Thou/mm3 Absolute Nucleated RBC 0.00 (0.00-0.00) Thou/mm3 Immature Gran % 0 (0-0) % Nucleated RBC % 0 (0) /100 WBC ESR 63 H (0-20) mm/hr Sodium 135 L (136-145) mMol/L Potassium 3.9 (3.4-5.1) mMol/L Chloride 95 L (98-107) mMol/L Carbon Dioxide 31.4 H (20.0-31.0) mMol/L Anion Gap 9 (7-16) BUN 20 (9-23) mg/dL Creatinine 3.8 H (0.6-1.3) mg/dL Estim Creat Clear Calc Not Performed. eGFR 18 L (60 - ) See Note BUN/Creatinine Ratio 5 L (12-20) Ratio Glucose 258 H (74-106) mg/dL Calculated Osmolality 281 (275-295) Lactic Acid 1.5 (0.4-2.0) mMol/L Calcium 8.7 (8.3-10.6) mg/dL Corrected Calcium 8.7 (8.5-10.1) mg/dL Magnesium 2.3 (1.6-2.6) mg/dL Total Bilirubin 0.2 L (0.3-1.2) mg/dL AST 25 (0-34) U/L ALT 17 (10-49) U/L Alkaline Phosphatase 197 H (46-116) U/L C-Reactive Prot, Quant 2.4 H (0.0-0.9) mg/dL Total Protein 6.8 (5.7-8.2) gm/dL Albumin 4.0 (3.5-5.0) gm/dL Globulin 2.8 (2.3-3.5) gm/dL Albumin/Globulin Ratio 1.4 (1.2-2.2) Discharge Plan Plan Patient Disposition: Xfer Skilled Nsg Fac (SNF) Prescriptions/Referrals Prescriptions/Med Rec: New amoxicillin-pot clavulanate 875-125 mg tablet 1 tab PO BID Qty: 28 0RF No Action tamsulosin 0.4 mg capsule 0.4 mg PO QHS calcium acetate(phosphat bind) 667 mg Capsule 667 mg PO TIDWM Qty: 90 0RF bisacodyl [Dulcolax (bisacodyl)] 10 mg Suppository 10 mg AR Q72H PRN (Reason: Constipation) Rx Instructions: if mom ineffective sennosides [Senna Lax] 8.6 mg tablet 1 tab PO QPM acetaminophen [Tylenol] 325 mg Tablet 650 mg PO Q8HR PRN (Reason: Pain, Mild) lorazepam 1 mg Tablet 1 mg PO HS cyclobenzaprine 5 mg Tablet 5 mg PO HS Rx Instructions: for muscle spasm Combivent Respimat 20-100 mcg/actuation Mist 1 puff INHALATION BID clonidine HCl 0.1 mg Tablet 0.1 mg PO BID Rx Instructions: hold for Sbp<100, DBP<60 nutritional supplements Liquid 1 ea PO BID Rx Instructions: 4 ounce BID clopidogrel 75 mg tablet 75 mg PO DAILY Rx Instructions: for CVA prophylaxis aspirin 81 mg Tablet,Chewable 81 mg PO QDAY Rx Instructions: for CVA prophylaxis fluticasone propionate [Flonase Allergy Relief] 50 mcg/actuation [place],Suspension 2 spray INTRANASAL QDAY Rx Instructions: administer into each nostril docusate sodium 50 mg Capsule 250 mg PO BID Rx Instructions: Liquid may be used. Hold for loose stools. cholecalciferol (vitamin D3) 125 mcg (5,000 unit) Tablet 125 mcg PO QDAY Clementina-Sofiya 0.8 mg Tablet 1 tab PO QDAY pantoprazole 40 mg tablet,delayed release (DR/EC) 40 mg PO QAM Rx Instructions: for GERD atorvastatin 80 mg tablet 80 mg PO HS guaifenesin 100 mg/5 mL Liquid 200 mg PO [id number] PRN (Reason: Cough) magnesium hydroxide [Milk of Magnesia] 400 mg/5 mL suspension 5 ml PO QDAY PRN (Reason: constipation) 30 Days Qty: 3780 1RF Referrals: Winston Sharma MD [Primary Care Provider] - In 1 week Problem List Clinical Impression: Neck mass Patient/Caregiver Discharge Instructions Discharge Activity: activity as tolerated Additional Instructions: Discharge Instructions from Dr. Barboza printed for you: 1. After evaluation, including CT scan and exam by Dr. Wheeler (our surgeon), exact cause of your neck mass was not determined. But possibilities include infection and tumor. 2. He recommended Augmentin twice daily for 14 days for the possible infection. 3. Apply warm compress throughout the day. 4. See Dr. Wheeler on 08/04/24 for recheck and further care. The mass may need to be incised and drained. 5. Seek immediate medical care with fever, spreading redness despite taking Augmentin for 24 hours, or with any concerns. Instrucciones de khurram del Dr. Barboza impresas para usted: 1. Despu?s de jil evaluaci?n exhaustiva, afortunadamente no hay lesiones muy graves, celestine jil lesi?n cerebral, jil fractura de caity o espalda u otra fractura de hueso u ?rgano interno. 2. Para el descanso necesario para curar la contusi?n de la rodilla izquierda, es posible soportar el peso m?alexandr y elevarse por encima del nivel de la cintura chi 3 d?as. 3. Aplique hielo chi 20 minutos cada 2 o 3 horas hoy y ma?marina. 4. Ibuprofeno 800 mg cada 6 a 8 horas hoy y ma?marina para disminuir la inflamaci?n, seg?n sea necesario. 5. Visite a un m?dico privado el 2024 para un nuevo control y m?s atenci?n. Pida que revisen todos los resultados de las pruebas y los informes radiol?gicos oficiales, para asegurarse de recibir todos los seguimientos y monitoreo necesarios. 6. Busque atenci?n m?dica inmediata si empeora o tiene alguna inquietud. Print Language: Haitian Stand Alone Forms: Keira Award Info., Patient Portal Info Letter
--- NOTE | 2024-08-02 12:07 | XR_ITS ---
Examination: CT soft tissue neck, with intravenous contrast. 2-D coronal reconstructions. 2-D sagittal reconstructions. Date and time of exam :August 02, 2024 1559 hours INDICATIONS: Swelling and pain in the middle of the neck beginning 3 days ago. CTDI: vol (mGy):10.8 DLP: (mGycm):287 Technique: 1.25 mm axial sections of the neck of the obtained. Coronal and sagittal reconstructions have been obtained. Intravenous contrast administered 50 cc Isovue-370. Low dose protocols were performed. One or more of the following dose reduction techniques were used; automated exposure control, adjustment of the mA and/or KV according to patient size, use of iterative reconstruction technique. Findings: Symmetrical nasopharynx oropharynx Symmetrical parotid and submandibular glands large fluid containing mass in the lower left neck extending from C6 to T1, measuring 5 x 2.7 x 4 cm displacing the left thyroid 20 mm right thyroid nodule Epiglottis is not thickened Satisfactory alignment cervical vertebral bodies IMPRESSION: Large fluid containing mass in the soft tissue left lower neck 5.0 x 2.7 x 4.0 cm Differential would include necrotic soft tissue tumor mass, abscess, clinical correlation advised
[2024-08-02 12:47] LABS: Lactate (Lactic Acid) 1.5 mMol/L (0.4-2.0)
[2024-08-02 12:53] LABS: Basophils # (Auto) 0.1 Thou/mm3 (0.0-0.2); Basophils % (Auto) 1 % (0-2.5); Eosinophils # (Auto) 0.2 Thou/mm3 (0.0-0.5); Eosinophils % (Auto) 2 % (0-10); Hematocrit 38.5 % (41.0-53.0); Hemoglobin 12.5 g/dL (13.5-16.0); Immature Granulocytes % (Auto) 0 % (0-0); Immature Granulocytes Auto 0.05 Thou/mm3 (0.00-0.00); Lymphocytes % (Auto) 9 % (10-50); Mean Corpuscular HGB Conc 32.5 g/dl (31.0-37.0); Mean Corpuscular Hemoglobin 29.6 pg (25.0-35.0); Mean Corpuscular Volume 91 fL (80-100); Monocytes # (Auto) 0.9 Thou/mm3 (0.0-0.8); Monocytes % (Auto) 8 % (0-12); Neutrophils # (Auto) 9.2 Thou/mm3 (1.8-7.7); Neutrophils % (Auto) 81 % (37-80); Nucleated Red Blood Cell % 0 /100 WBC (0); Platelet Count 316 Thou/mm3 (140-440); RDW Standard Deviation 48.3 fL (35.1-43.9); Red Blood Count 4.22 Miln/mm3 (4.50-5.90); White Blood Count 11.3 Thou/mm3 (3.8-10.6)
[2024-08-02 13:15] LABS: Sed Rate (ESR) 63 mm/hr (0-20)
[2024-08-02 13:18] LABS: Alanine Aminotransferase 17 U/L (10-49); Albumin/Globulin Ratio 1.4 (1.2-2.2); Alkaline Phosphatase 197 U/L (46-116); Anion Gap 9 (7-16); Aspartate Amino Transferase 25 U/L (0-34); BUN/Creatinine Ratio 5 Ratio (12-20); Bilirubin,Total 0.2 mg/dL (0.3-1.2); Blood Urea Nitrogen 20 mg/dL (9-23); C-Reactive Protein 2.4 mg/dL (0.0-0.9); Calcium 8.7 mg/dL (8.3-10.6); Calcium (Corrected) 8.7 mg/dL (8.5-10.1); Carbon Dioxide 31.4 mMol/L (20.0-31.0); Chloride 95 mMol/L (98-107); Creatinine (Component) 3.8 mg/dL (0.6-1.3); Globulin 2.8 gm/dL (2.3-3.5); Glucose 258 mg/dL (74-106); Magnesium 2.3 mg/dL (1.6-2.6); Osmolality,Calculated 281 (275-295); Potassium 3.9 mMol/L (3.4-5.1); Sodium 135 mMol/L (136-145); Total Protein 6.8 gm/dL (5.7-8.2); eGFR 18 See Note
[2024-08-02 14:41] VITALS: BP 153/93; PULSE 95; RESP 14; TEMP 37.2; O2SAT 100
[2024-08-02 16:25] VITALS: BP 151/89; PULSE 90; RESP 18; TEMP 36.4; O2SAT 100
--- NOTE | 2024-08-02 17:23 | PD.SURCONS ---
HPI Consult details Consult date: 08/02/24 Reason for consultation narrative: Patient was seen in consultation because of the swelling over the left side of the neck for 3 days. History of present illness: History of present illness revealed that the patient is staying in the [facility] and he noticed a swelling 3 days ago. It is not painful and he does not have any fever or tenderness. He came in because of itching. Apparently somebody started him on antibiotics in the retirement yesterday. Meds Home Medications and Allergies Home Medications ?Medication ?Instructions ?Recorded ?Confirmed ?Type cyclobenzaprine 5 mg tablet 5 mg PO HS 07/25/22 06/26/24 History ipratropium 20 mcg-albuterol 100 1 puff inhalation BID 07/25/22 06/26/24 History mcg/actuation mist for inhalation (Combivent Respimat) lorazepam 1 mg tablet 1 mg PO HS 07/25/22 06/26/24 History clonidine HCl 0.1 mg tablet 0.1 mg PO BID 12/30/22 06/26/24 History Held on 04/18/24. Instructions: Resume on 05/18/24. F/up with PCP for considering restart of clonidine acetaminophen 325 mg tablet 650 mg PO Q8HR PRN Pain, Mild 01/07/23 06/26/24 History (Tylenol) bisacodyl 10 mg rectal suppository 10 mg ME Q72H PRN Constipation 01/07/23 06/26/24 History (Dulcolax (bisacodyl)) sennosides 8.6 mg tablet (Senna 1 tab PO QPM 01/07/23 06/26/24 History Lax) nutritional supplements 1 ea PO BID 04/11/24 06/26/24 History aspirin 81 mg chewable tablet 81 mg PO QDAY 04/12/24 06/26/24 History atorvastatin 80 mg tablet 80 mg PO HS 04/12/24 06/26/24 History cholecalciferol (vitamin D3) 125 125 mcg PO QDAY 04/12/24 06/26/24 History mcg (5,000 unit) tablet clopidogrel 75 mg tablet 75 mg PO DAILY 04/12/24 06/26/24 History docusate sodium 50 mg capsule 250 mg PO BID 04/12/24 06/26/24 History fluticasone propionate 50 2 spray intranasal QDAY 04/12/24 06/26/24 History mcg/actuation nasal spray,suspension (Flonase Allergy Relief) guaifenesin 100 mg/5 mL oral liquid 200 mg PO [id number] PRN Cough 04/12/24 06/26/24 History pantoprazole 40 mg tablet,delayed 40 mg PO QAM 04/12/24 06/26/24 History release vitamin B complex-vitamin C-folic 1 tab PO QDAY 04/12/24 06/26/24 History acid 0.8 mg tablet (Clementina-Sofiya) tamsulosin 0.4 mg capsule 0.4 mg PO QHS 06/26/24 06/26/24 History Allergies Allergy/AdvReac Type Severity Reaction Status Date / Time No Known Allergies Allergy Verified 08/02/24 11:55 Exam Vital Signs Temp Pulse Resp BP Pulse Ox O2 Del Method 97.6 F 90 18 151/89 H 100 Room Air 08/02/24 16:25 08/02/24 16:25 08/02/24 16:25 08/02/24 16:25 08/02/24 16:25 08/02/24 16:25 Narrative Exam Physical examination revealed an elderly male who speaks only [place] Routine HEENT Exam Comments: Examination of the neck revealed large mass which is spherical over the anterior portion of the sternocleidomastoid. She is showing some inflammatory signs. It is not fluctuant. The patient does not have any tenderness upon palpation Results Results: Laboratory Laboratory Narrative: Patient's laboratory workup is within normal limit Results: Imaging Imaging narrative: CT scan of the neck showed soft tissue mass containing fluid the diagnosis of possible abscess or necrotic tissue Assessment & Plan Additional Assessment Additional comments: Impression: Because of the redness I think this is probably an evolving abscess Plan Plan: Patient does not require any emergency surgery. I suggest we continue the antibiotics and follow-up preferably with an ENT surgeon as an outpatient. At this time I would not place a needle because it is not very fluctuant in spite of the CT finding. I would suggest we continue antibiotics in the retirement as it is being done.
[2024-08-02] MEDS: AMOXICILLIN/POT CLAV 875 TABLET 1 TAB PO (18:30)
[2024-08-02 18:39] VITALS: BP 153/85; PULSE 91; RESP 16; TEMP 37.3; O2SAT 100
[2024-08-02 20:36] VITALS: BP 157/89; PULSE 87; RESP 17; TEMP 37.2; O2SAT 98
== END 2024-08-02 21:06 | disposition skilled nursing facility (03) ==
PROVIDERS: Emergency Provider Emergency Medicine; PCP Family Medicine
DX: R22.1 Localized swelling, mass and lump, neck (principal); Z86.73 Personal history of transient ischemic attack (TIA), and cerebral infarction without residual deficits
CPT/HCPCS: 36415; 70491; 80053; 83605; 83735; 84145; 85025; 85652; 86140; 87634; 99285; A4649; Q9967; A9270

== ENCOUNTER 2024-11-21 14:04 | Emergency (ER) | payer MEDICAID, SELFPAY ==
[2024-11-21 14:11] VITALS: BP 181/90; PULSE 94; RESP 18; TEMP 36.4; O2SAT 99
--- NOTE | 2024-11-21 14:11 | XR_ITS ---
Examination: CT soft tissue neck, with intravenous contrast. 2-D coronal reconstructions. 2-D sagittal reconstructions. Date and time of exam :November 21, 2024 1647 hours INDICATIONS: CT soft tissue neck August 02, 2024 necrotic mass anterior lower left neck 5.0 x 2.7 x 4.0 cm, right-sided neck pain today. Palpable lump in the right neck beginning 4 days ago CTDI: vol (mGy):12.1 DLP: (mGycm):312 Technique: 1.25 mm axial sections of the neck of the obtained. Coronal and sagittal reconstructions have been obtained. Intravenous contrast administered 50 cc Isovue 370. Low dose protocols were performed. One or more of the following dose reduction techniques were used; automated exposure control, adjustment of the mA and/or KV according to patient size, use of iterative reconstruction technique. Findings: Acute left sphenoid sinusitis Symmetrical nasopharynx oropharynx Bilateral carotid triangle lymph nodes measuring up to 15 mm Necrotic lymph node mass external to the right sternocleidomastoid muscle at the level of the mandibular angle on the right side, 23 mm with edema in the subcutaneous fatty tissue of the lower face on the right side 6 mm right thyroid nodule, the left thyroid is replaced by a large nodule at least 3 cm Partial visualization significant mediastinal lymphadenopathy, 22 mm lymph node anterior to the superior vena cava and 25 mm right tracheobronchial lymph node as well as 28 mm lymph node in the precarinal region IMPRESSION: Bilateral carotid triangle lymphadenopathy 23 mm necrotic lymph node mass external to the right sternocleidomastoid muscle Thyroid nodules Significant mediastinal lymphadenopathy Differential would include metastatic lymphadenopathy, Hodgkin's disease, non-Hodgkin's lymphoma Consider PET CT scan for staging follow-up
[2024-11-21 14:30] LABS: Basophils # (Auto) 0.1 Thou/mm3 (0.0-0.2); Basophils % (Auto) 1 % (0-2.5); Eosinophils # (Auto) 0.2 Thou/mm3 (0.0-0.5); Eosinophils % (Auto) 3 % (0-10); Hematocrit 32.4 % (41.0-53.0); Hemoglobin 11.3 g/dL (13.5-16.0); Immature Granulocytes % (Auto) 0 % (0-0); Immature Granulocytes Auto 0.01 Thou/mm3 (0.00-0.00); Lymphocytes # (Auto) 1.2 Thou/mm3 (1.0-4.8); Lymphocytes % (Auto) 15 % (10-50); Mean Corpuscular HGB Conc 34.9 g/dl (31.0-37.0); Mean Corpuscular Hemoglobin 31.1 pg (25.0-35.0); Mean Corpuscular Volume 89 fL (80-100); Monocytes # (Auto) 0.9 Thou/mm3 (0.0-0.8); Monocytes % (Auto) 11 % (0-12); Neutrophils # (Auto) 5.6 Thou/mm3 (1.8-7.7); Neutrophils % (Auto) 70 % (37-80); Nucleated Red Blood Cell % 0 /100 WBC (0); Platelet Count 239 Thou/mm3 (140-440); RDW Standard Deviation 39.7 fL (35.1-43.9); Red Blood Count 3.63 Miln/mm3 (4.50-5.90)
[2024-11-21 14:34] VITALS: PULSE 94; RESP 18; O2SAT 97
[2024-11-21 14:36] VITALS: BP 179/98; PULSE 90; RESP 17; TEMP 36.6; O2SAT 99; BMI 26.3
[2024-11-21 14:51] LABS: Alanine Aminotransferase 18 U/L (10-49); Albumin, Serum 4.1 gm/dL (3.5-5.0); Albumin/Globulin Ratio 1.6 (1.2-2.2); Alkaline Phosphatase 157 U/L (46-116); Anion Gap 12 (7-16); Aspartate Amino Transferase 17 U/L (0-34); BUN/Creatinine Ratio 7 Ratio (12-20); Bilirubin,Total 0.2 mg/dL (0.3-1.2); Blood Urea Nitrogen 48 mg/dL (9-23); Calcium 9.1 mg/dL (8.3-10.6); Calcium (Corrected) 9.1 mg/dL (8.5-10.1); Carbon Dioxide 31.3 mMol/L (20.0-31.0); Chloride 94 mMol/L (98-107); Creatinine (Component) 7.1 mg/dL (0.6-1.3); Estimated Creatinine Clearance 10.9 mL/min (>60); Globulin 2.5 gm/dL (2.3-3.5); Glucose 120 mg/dL (74-106); Osmolality,Calculated 287 (275-295); Potassium 4.7 mMol/L (3.4-5.1); Sodium 137 mMol/L (136-145); Total Protein 6.6 gm/dL (5.7-8.2); eGFR 9 See Note
--- NOTE | 2024-11-21 19:22 | PD.EDSKIN ---
ED Skin Abcess FB-RME/HPI General Chief complaint: Skin/Abscess/Foreign Body Stated complaint: NECK ABSCESS Time Seen by Provider: 11/21/24 14:11 Arrival date/time: 11/21/24 14:04 Patient is a 54-year-old male who is here today with a acute neck mass that is noted over the last 2 days. He has no fevers or chills. Has no weight change. Denies any cough or difficulty breathing. No difficulty swallowing. Has no chest pain, abdominal pain, nausea, or vomiting. No urinary changes. He is in retirement for a stroke that he suffered 2 years ago. He has chronic right-sided deficit with no acute changes. Patient had similar symptoms in the past and was seen in [facility] and then transferred to [place], [place]. He had a drain placed for similar symptoms in the past. Limitations: no limitations Related Data Home Medications ?Medication ?Instructions ?Recorded ?Confirmed cyclobenzaprine 5 mg tablet 5 mg PO HS 07/25/22 06/26/24 ipratropium 20 mcg-albuterol 100 1 puff inhalation BID 07/25/22 06/26/24 mcg/actuation mist for inhalation (Combivent Respimat) lorazepam 1 mg tablet 1 mg PO HS 07/25/22 06/26/24 clonidine HCl 0.1 mg tablet 0.1 mg PO BID 12/30/22 06/26/24 Held on 04/18/24. Instructions: Resume on 05/18/24. F/up with PCP for considering restart of clonidine acetaminophen 325 mg tablet 650 mg PO Q8HR PRN Pain, Mild 01/07/23 06/26/24 (Tylenol) bisacodyl 10 mg rectal suppository 10 mg TN Q72H PRN Constipation 01/07/23 06/26/24 (Dulcolax (bisacodyl)) sennosides 8.6 mg tablet (Senna 1 tab PO QPM 01/07/23 06/26/24 Lax) nutritional supplements 1 ea PO BID 04/11/24 06/26/24 aspirin 81 mg chewable tablet 81 mg PO QDAY 04/12/24 06/26/24 atorvastatin 80 mg tablet 80 mg PO HS 04/12/24 06/26/24 cholecalciferol (vitamin D3) 125 125 mcg PO QDAY 04/12/24 06/26/24 mcg (5,000 unit) tablet clopidogrel 75 mg tablet 75 mg PO DAILY 04/12/24 06/26/24 docusate sodium 50 mg capsule 250 mg PO BID 04/12/24 06/26/24 fluticasone propionate 50 2 spray intranasal QDAY 04/12/24 06/26/24 mcg/actuation nasal spray,suspension (Flonase Allergy Relief) guaifenesin 100 mg/5 mL oral liquid 200 mg PO [id number] PRN Cough 04/12/24 06/26/24 pantoprazole 40 mg tablet,delayed 40 mg PO QAM 04/12/24 06/26/24 release vitamin B complex-vitamin C-folic 1 tab PO QDAY 04/12/24 06/26/24 acid 0.8 mg tablet (Clementina-Sofiya) tamsulosin 0.4 mg capsule 0.4 mg PO QHS 06/26/24 06/26/24 Previous Rx's ?Medication ?Instructions ?Recorded calcium acetate(phosphat bind) 667 667 mg PO TIDWM #90 caps 08/20/21 mg capsule magnesium hydroxide 400 mg/5 mL 5 ml PO QDAY PRN constipation 1 04/19/24 oral suspension (Milk of Magnesia) month #3,780 mL amoxicillin 875 mg-potassium 1 tab PO BID #28 tabs 08/02/24 clavulanate 125 mg tablet Allergies Allergy/AdvReac Type Severity Reaction Status Date / Time No Known Allergies Allergy Verified 08/02/24 11:55 Review of Systems Review of Systems Systems Reviewed: All systems reviewed, normal except as documented ED Exam General Limitations: Present no limitations General appearance: Present alert and in no apparent distress Head Head exam: Present atraumatic Eye Eye exam: Present normal appearance, PERRL and EOMI ENT ENT exam: Present normal exam, normal oropharynx, mucous membranes moist and other (There is a 3 to 4 cm, round, spherical shaped mass at the right lateral neck that is nontender. No erythema or fluctuance is appreciated.) Neck Neck exam: Present normal inspection, full ROM and trachea midline Chest Chest inspection: Present normal inspection and symmetric chest wall rise Respiratory Respiratory exam: Present normal lung sounds bilaterally Cardiovascular Cardiovascular exam: Present regular rate, normal rhythm and normal heart sounds Abdominal Exam Abdominal exam: Present soft and normal bowel sounds Extremities Exam Extremities exam: Present normal inspection and full ROM Back Exam Back exam: Present normal inspection and full ROM Neurological Exam Neurological exam: Present alert, oriented X3 and CN II-XII intact Psychiatric Psychiatric exam: Present normal affect and normal mood Skin Skin exam: Present warm, dry, intact and normal color Course Quality Measures none Orders Category Date Time Status CT Screening NOW Care 11/21/24 14:12 Completed IV [Insert IV] STAT Care 11/21/24 14:[address] soft tissue neck w con Stat Exams 11/21/24 14:11 Completed CBC Stat Lab 11/21/24 14:24 Completed CMP [Comprehensive Metabolic Panel] Stat Lab 11/21/24 14:24 Completed Vital Signs Vital signs: Vital Signs Temperature 97.5 F 11/21/24 14:11 Pulse Rate 94 11/21/24 14:11 Respiratory Rate 18 11/21/24 14:11 Blood Pressure 181/90 H 11/21/24 14:11 Pulse Oximetry (%) 99 11/21/24 14:11 Oxygen Delivery Method Room Air 11/21/24 14:11 Skin / Abscess / Foreign Body MDM Narrative MDM Narrative:: 11/21/24 14:04 Patient is a 54-year-old male who is here today with a acute neck mass that is noted over the last 2 days. He has no fevers or chills. Has no weight change. Denies any cough or difficulty breathing. No difficulty swallowing. Has no chest pain, abdominal pain, nausea, or vomiting. No urinary changes. He is in retirement for a stroke that he suffered 2 years ago. He has chronic right-sided deficit with no acute changes. Patient had similar symptoms in the past and was seen in [place], [place] and then transferred to [place], [place]. He had a drain placed for similar symptoms in the past. Workup today is concerning for possible metastatic disease. This was discussed with his retirement. Patient will need further outpatient workup to possibly include PET scan and oncology consultation. They will assist with this. He is invited return as needed for any worsening emergent changes. Patient data External records reviewed:: [facility] previous records Clinical information provided by:: patient and EMS Social determinants that could affect healthcare access:: none Patient has the following chronic illnesses:: CKD, CVA, hyperlipidemia How is presenting disease/condition affected by chronic disease/condition?: uneffected by Evaluation data The following diagnostics were reviewed and interpreted by me:: lab results and radiology exam(s) Lab and/or radiology exams considered but not ordered:: n/a Interpretation Summary: Findings concerning for possible lymphoma Medications / Prescriptions Medications or Prescriptions considered but not ordered:: n/a Medication administrations:: n/a Consultations Consultation(s) initiated? (list below): No Diagnosis Skin/Abscess Differential Diagnosis: abscess of skin or subcutaneous tissue and cellulitis Most likely diagnosis given after review of the tests above:: Lymphadenopathy Admission Indicated Admission indicated?: not indicated Admission Request Was there a request for admission?: No Disposition Plan Disposition Plan: Discharge Discharge Attestation Discharge Attestation: The patient and all family members were given an opportunity to ask questions and understood the discharge instructions. Discharge instructions specifically effects, indications for sooner follow up or return to the emergency department, and the expected course of current diagnosis. Patient condition: Stable Discharge Plan Plan Patient Disposition: HOME (Self Care) Patient condition on transfer: Stable Prescriptions/Referrals Prescriptions/Med Rec: No Action tamsulosin 0.4 mg capsule 0.4 mg PO QHS calcium acetate(phosphat bind) 667 mg Capsule 667 mg PO TIDWM Qty: 90 0RF bisacodyl [Dulcolax (bisacodyl)] 10 mg Suppository 10 mg TN Q72H PRN (Reason: Constipation) Rx Instructions: if mom ineffective sennosides [Senna Lax] 8.6 mg tablet 1 tab PO QPM acetaminophen [Tylenol] 325 mg Tablet 650 mg PO Q8HR PRN (Reason: Pain, Mild) lorazepam 1 mg Tablet 1 mg PO HS cyclobenzaprine 5 mg Tablet 5 mg PO HS Rx Instructions: for muscle spasm Combivent Respimat 20-100 mcg/actuation Mist 1 puff INHALATION BID clonidine HCl 0.1 mg Tablet 0.1 mg PO BID Rx Instructions: hold for Sbp<100, DBP<60 nutritional supplements Liquid 1 ea PO BID Rx Instructions: 4 ounce BID clopidogrel 75 mg tablet 75 mg PO DAILY Rx Instructions: for CVA prophylaxis aspirin 81 mg Tablet,Chewable 81 mg PO QDAY Rx Instructions: for CVA prophylaxis fluticasone propionate [Flonase Allergy Relief] 50 mcg/actuation [place],Suspension 2 spray INTRANASAL QDAY Rx Instructions: administer into each nostril docusate sodium 50 mg Capsule 250 mg PO BID Rx Instructions: Liquid may be used. Hold for loose stools. cholecalciferol (vitamin D3) 125 mcg (5,000 unit) Tablet 125 mcg PO QDAY Clementina-Sofiya 0.8 mg Tablet 1 tab PO QDAY pantoprazole 40 mg tablet,delayed release (DR/EC) 40 mg PO QAM Rx Instructions: for GERD atorvastatin 80 mg tablet 80 mg PO HS guaifenesin 100 mg/5 mL Liquid 200 mg PO [id number] PRN (Reason: Cough) magnesium hydroxide [Milk of Magnesia] 400 mg/5 mL suspension 5 ml PO QDAY PRN (Reason: constipation) 30 Days Qty: 3780 1RF amoxicillin-pot clavulanate 875-125 mg tablet 1 tab PO BID Qty: 28 0RF Referrals: No Primary/Family,Physician [Primary Care Provider] - In 1 week Problem List Clinical Impression: Lymphadenopathy Patient/Caregiver Discharge Instructions Education Materials: Lymphadenopathy Additional Instructions: Your workup today is concerning for additional lymph node involvement. You would benefit from consultation with oncology. You might need a referral to oncology from her primary care provider. You can also contact the local oncology office listed below. Please return to the emergency room at anytime for worsening or emergent changes. Vincent evaluaci?n de hoy es preocupante por jil mayor afectaci?n de los ganglios linf?ticos. Le conviene consultar con oncolog?a. Es posible que vincent m?dico de cabecera la derive a oncolog?a. Tambi?n puede contactar con la oficina local de oncolog?a que se indica a continuaci?n. Por favor, acuda a urgencias en cualquier momento si presenta un empeoramiento o cambios de urgencia. [facility] [address] [place] [address] Print Language: Burundian Stand Alone Forms: Keira Award Info., Patient Portal Info Letter
[2024-11-21 19:26] VITALS: BP 180/103; PULSE 101; RESP 18; O2SAT 100
[2024-11-21 21:18] VITALS: BP 178/97; PULSE 101; RESP 17; TEMP 36.8; O2SAT 100
== END 2024-11-21 21:19 | disposition home or self-care (01) ==
PROVIDERS: Physician Assistant Medical; Emergency Provider Family Medicine
DX: R59.1 Generalized enlarged lymph nodes (principal); Z86.73 Personal history of transient ischemic attack (TIA), and cerebral infarction without residual deficits; E04.1 Nontoxic single thyroid nodule
CPT/HCPCS: 36415; 70491; 80053; 85025; 99285; A4649; Q9967

== ENCOUNTER 2025-01-02 13:04 | Outpatient (RCR) | payer MEDICAID, SELFPAY ==
--- NOTE | 2025-01-02 14:07 | CTCCONSULT_ITS ---
[facility] [address] [place], [place] [address] Consultation Note Date: 01/02/2025 MR#: [id number] Name: MARLEY DALEY : 1970 Dx: R91.8 Other nonspecific abnormal finding of lung field Attending physician. Winston Sharma MD Identification. [facility] facility patient with CVA referred for suspected malignancy involving neck chest. History of Present Illness: Patient is a 54-year-old gentleman with CVA resident of [facility]. In the past few weeks patient has noted to have palpable adenopathy right greater than left with an ulcerating area noted in the anterior neck. 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 Significant mediastinal adenopathy noted. Patient now referred to the cancer treatment center. 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 Diabetes chronic kidney disease receiving dialysis Meds. Lorazepam potassium melatonin Milk of magnesia Protonix tamsulosin Humalog insulin Lantus aspirin atorvastatin Plavix cyclobenzaprine Allergies none to meds Social History: Resides at [facility]. Getting dialysis for chronic kidney disease. Non-smoker quit alcohol 2 years ago Review of Systems: [place] nodules growing in his neck. No fever chills or significant weight loss or loss of swallowing ability. Physical Exam: General: Adequate nourished appearing gentleman in no acute distress HEENT: Palpable adenopathy noted right greater than left [place] shaped ulceration anterior neck CV: Chest good station heart regular rate and rhythm ABD: Soft no Ruggerio tenderness EXT: Right hemiplegia noted Assessment:1. Significant adenopathy noted in the neck , with an area of ulceration anterior neck. 2. 11/21/[address] suggests significant superior mediastinal lymphadenopathy. 3. Will order biopsy of the right neck mass. 4. Further imaging studies and lab tests will follow. 5. Thank you very much for allowing me to evaluate this patient Electronically signed by: Chin Barboza MD, DABR 01/02/2025 2:05 PM
== END 2025-01-28 23:59 | disposition home or self-care (01) ==
LOC: SCTC 13:04
PROVIDERS: PCP Hospitalist; Referring Provider Hospitalist; Visit Provider Radiology Therapeutic Radiology
DX: R59.0 Localized enlarged lymph nodes (principal)
CPT/HCPCS: 99213; G0463